=== PATIENT | female | born 1960 | race Caucasian/White ===

== ENCOUNTER 2018-06-15 10:17 | Outpatient (CLI) | payer MEDICARE, MEDICAID, SELFPAY ==
[2018-06-15 13:13] LABS: Anion Gap 9.9 mmol/L (3-11); BUN 16 mg/dL (7-18); CO2 26.1 mmol/L (21.0-32.0); CREATININE 1.07 mg/dL (0.55-1.02); Calcium 9.2 mg/dL (8.5-10.1); Chloride 105 mmol/L (98-107); Cholesterol 177 mg/dL (50-200); Estimated GFR 52.86 (mL/min/1.73m2); Glucose 86 mg/dL (70-100); HDL Cholesterol 58 mg/dL (40-60); LDL CHOLESTEROL 94 mg/dL (<100); Potassium 4.1 mmol/L (3.5-5.1); Sodium 141 mmol/L (136-145); Triglyceride 190 mg/dL (30-150)
== END 2018-06-15 10:37 ==
PROVIDERS: PCP Family Medicine; Visit Provider Family Medicine
DX: E78.5 Hyperlipidemia, unspecified (principal); N28.9 Disorder of kidney and ureter, unspecified
CPT/HCPCS: 36415; 80048; 80061; 83721

== ENCOUNTER 2020-06-05 22:35 | Outpatient (REF) | payer MEDICARE, MEDICAID, SELFPAY ==
[2020-06-05 14:48] LABS: *AMPHETAMINES SCREEN URINE Negative (Negative); *BARBITURATES SCREEN URINE POSITIVE (Negative); *BENZODIAZEPINES SCREEN URINE POSITIVE (Negative); Cannabinoids THC Negative (Negative); Cocaine Screen,Urine Negative (Negative); METHADONE URINE SCREEN Negative (Negative); OPIATES URINE SCREEN POSITIVE (Negative)
[2020-06-05 14:50] LABS: Tricyclic Antidepressants POSITIVE (Negative)
[2020-06-08 10:06] LABS: Codeine Negative ng/mL (Cutoff: 25); Dihydrocodeine 520 ng/mL (Cutoff: 25); Hydrocodone 520 ng/mL (Cutoff: 25); Hydromorphone 258 ng/mL (Cutoff: 25); Morphine Negative ng/mL (Cutoff: 25); Naloxone Negative ng/mL (Cutoff: 25); Norhydrocodone 3090 ng/mL (Cutoff: 25); Noroxycodone Negative ng/mL (Cutoff: 25); Noroxymorphone Negative ng/mL (Cutoff: 25); Opiates Interpretation Positive.
[2020-06-13 10:48] LABS: Alprazolam 329 ng/mL (Cutoff: 10)
[2020-06-13 10:49] LABS: Alpha OH-Alprazolam 575 ng/mL (Cutoff: 10); Alpha-OH Midazolam Negative ng/mL (Cutoff: 10); Chlordiazepoxide Negative ng/mL (Cutoff: 10); Clobazam Negative ng/mL (Cutoff: 10); Clonazepam Negative ng/mL (Cutoff: 10)
[2020-06-13 10:50] LABS: Diazepam Negative ng/mL (Cutoff: 10); Lorazepam Negative ng/mL (Cutoff: 10)
[2020-06-13 10:51] LABS: 2-OH-Ethyl-Flurazepam Negative ng/mL (Cutoff: 10); 7-NH-Clonazepam Negative ng/mL (Cutoff: 10); Flurazepam Negative ng/mL (Cutoff: 10); Prazepam Negative ng/mL (Cutoff: 10); Temazepam 2448 ng/mL (Cutoff: 10)
[2020-06-13 10:52] LABS: 7-NH-Flunitrazepam Negative ng/mL (Cutoff: 10); Alpha-OH-Triazolam Negative ng/mL (Cutoff: 10); N-Desmethylclobazam Negative ng/mL (Cutoff: 10); Triazolam Negative ng/mL (Cutoff: 10)
[2020-06-13 10:53] LABS: Midazolam Negative ng/mL (Cutoff: 10); Zolpidem Carboxylic acid See Comments ng/mL (Cutoff: 10)
[2020-06-13 10:54] LABS: Benzodiazepines Interpretation Positive
== END 2020-06-05 22:36 | disposition home or self-care (01) ==
LOC: LBN 22:35
PROVIDERS: PCP Family Medicine; Visit Provider Emergency Medicine
DX: M54.16 Radiculopathy, lumbar region (principal); Z79.891 Long term (current) use of opiate analgesic
CPT/HCPCS: 80307; 80361; 80362; 80346

== ENCOUNTER 2020-09-27 18:29 | Outpatient (CLI) | payer MEDICARE, MEDICAID, SELFPAY ==
--- NOTE | 2020-09-27 18:30 | DI.RAD_ITS ---
Exam(s) XR FOOT RT COMPLETE EXAM: XR FOOT RT COMPLETE CLINICAL HISTORY: heel pain right TECHNIQUE: COMPARISON: CR RIGHT FOOT COMPLETE from 05/28/2015 FINDINGS: Three views were obtained. There are a moderate mid foot degenerative changes. Mild degenerative ch anges of IP joints noted. There are enthesophytes at the attachments of Achilles tendon and plantar fascia on the calcaneus. No other significant bony or soft tissue abnormality seen. Alignment appea rs grossly within normal limits. IMPRESSION: Degenerative changes as described above. RADIATION DOSE DELIVERED: Total DLP
--- NOTE | 2020-09-27 19:12 | DI.VRAD_ITS ---
PROCEDURE INFORMATION: Exam: XR Right Foot Exam date and time: 09/27/2020 6:42 PM Age: 59 years old Clinical indication: Pain; Heel; Right TECHNIQUE: Imaging protocol: XR Right foot. Views: 3 or more views. COMPARISON: CR RIGHT FOOT COMPLETE 05/28/2015 1:12 PM FINDINGS: Bones/joints: Posterior small calcaneal spurring at the Achilles tendon insertion consistent with Achilles enthesopathy. Small plantar calcaneal spur at the plantar fascial insertion. This measures approximately 5 mm in length. No fracture. No dislocation. Mild midfoot arthritic degenerative changes. Soft tissues: No soft tissue foreign body or soft tissue gas. IMPRESSION: 1. No acute traumatic disruption. 2. Minor calcaneal spurring. 3. No soft tissue gas or foreign body. 4. Mild midfoot intra-tarsal degenerative joint changes. Dictated and Authenticated by: Jonathon Almanza MD. Ordering:ALEJANDRA Birch MD
== END 2020-09-27 18:49 ==
PROVIDERS: Visit Provider Physician Assistant Medical
DX: M79.671 Pain in right foot (principal); M19.071 Primary osteoarthritis, right ankle and foot
CPT/HCPCS: 73630

== ENCOUNTER 2020-10-10 09:38 | Outpatient (REF) | payer MEDICARE, MEDICAID, SELFPAY ==
[2020-10-10 13:36] LABS: HCT 34.6 % (36.0-46.0); HGB 10.5 g/dL (11.2-15.7); MCH 25.7 pg (27.0-33.0); MCHC 30.3 % (32.0-36.0); MCV 84.8 fL (80-95); MPV 9.3 fL (8.0-11.0); Platelet Count 275 10^3/uL (130-400); RBC 4.08 10^6/uL (3.93-5.22); RDW 14.9 % (11.7-14.6); RDW-SD 45.3 fL; WBC 5.55 10^3/uL (4.4-10.8)
[2020-10-10 14:10] LABS: Anion Gap 9.6 mmol/L (3-11); BUN 13 mg/dL (7-18); CO2 24.4 mmol/L (21.0-32.0); CREATININE 1.2 mg/dL (0.55-1.02); Calcium 8.6 mg/dL (8.5-10.1); Calculated LDL 126 mg/dL (<100); Chloride 110 mmol/L (98-107); Cholesterol 198 mg/dL (<200); Estimated GFR 45.98 (mL/min/1.73m2); Glucose 136 mg/dL (74-106); HDL Cholesterol 51 mg/dL (40-60); Potassium 4.4 mmol/L (3.5-5.1); Sodium 144 mmol/L (136-145); Triglyceride 107 mg/dL (<150)
== END 2020-10-10 09:39 | disposition home or self-care (01) ==
LOC: LBN 09:38
PROVIDERS: Visit Provider Physician Assistant
DX: E66.01 Morbid (severe) obesity due to excess calories (principal); R51.9 Headache, unspecified
CPT/HCPCS: 80048; 80061; 85027

== ENCOUNTER 2020-10-17 21:32 | Outpatient (REF) | payer MEDICARE, MEDICAID, SELFPAY ==
[2020-10-17 20:34] LABS: Hemoglobin A1C 5.5 % (<5.7)
== END 2020-10-17 21:33 | disposition home or self-care (01) ==
LOC: NCHCN 21:32
PROVIDERS: Visit Provider Physician Assistant
DX: R73.9 Hyperglycemia, unspecified (principal)
CPT/HCPCS: 83036

== ENCOUNTER → 2020-11-29 13:30 | Outpatient (BNVA) | payer MEDICARE, MEDICAID, SELFPAY | PROVIDERS: PCP Physician Assistant; Visit Provider Surgery | DX: D64.9 Anemia, unspecified (principal); R19.7 Diarrhea, unspecified | CPT/HCPCS: 99203 ==

== ENCOUNTER 2020-12-26 14:46 | Outpatient (REF) | payer MEDICARE, MEDICAID, SELFPAY ==
[2020-12-26 20:35] LABS: FREE T4 0.97 ng/dL (0.76-1.46); TSH 1.15 uIU/mL (0.36-3.74)
[2020-12-26 21:21] LABS: Vitamin B12 344 pg/mL (193-986)
== END 2020-12-26 14:47 | disposition home or self-care (01) ==
LOC: NCHCN 14:46
PROVIDERS: PCP Physician Assistant; Visit Provider Physician Assistant
DX: G60.9 Hereditary and idiopathic neuropathy, unspecified (principal)
CPT/HCPCS: 82607; 84439; 84443

== ENCOUNTER 2021-05-01 20:53 | Emergency (ER) | payer MEDICARE, MEDICAID, SELFPAY ==
[2021-05-01 21:02] VITALS: BP 150/90; PULSE 82; RESP 18; TEMP 36.5; O2SAT 98
[2021-05-01] MEDS: Dexamethasone 4 MG TAB PO (21:37)
[2021-05-01] MEDS: Benzocaine 20% 60 ML CAN (21:37)
--- NOTE | 2021-05-01 21:40 | W.ED.GENAD ---
Discharge Plan Disposition Patient Disposition: HOME Condition: Improving Discharge Details Clinical Impression: Choking due to foreign body Primary Care Provider: Colten Grover ED Provider: Rj Campbell Home Meds and New Rx's Prescriptions: Continued propranolol 80 mg capsule,extended release 24 hr 80 mg PO DAILY Qty: 90 RF: 4 pregabalin [Lyrica] 75 mg capsule 75 mg PO TID RF: 0 [id number]-bkxtgirvgchvf-qfoe 50-325-40 mg capsule 1 cap PO Q6H PRNRF: 0 bisacodyl [Dulcolax (bisacodyl)] 5 mg tablet,delayed release (DR/EC) 5 mg PO ONCE Qty: 4 RF: 0 polyethylene glycol 3350 17 gram powder in packet 255 g PO DAILY Qty: 15 RF: 0 multivitamin [Daily Multi-Vitamin] 1 EACH tablet 1 ea PO DAILY RF: 0 bupropion HCl (smoking deter) 150 MG tablet extended release 12 hr 150 mg PO BID Qty: 60 RF: 2 desvenlafaxine succinate [Pristiq] 100 MG tablet extended release 24 hr 100 mg PO DAILY Qty: 30 RF: 0 Probiotic 1 EACH capsule 1 ea PO AC Qty: 90 RF: 5 quetiapine 300 mg tablet 100 mg PO HS Qty: 30 RF: 0 pantoprazole 20 mg tablet,delayed release (DR/EC) 20 mg PO DAILY Qty: 90 RF: 4 nystatin 100,000 unit/gram powder 1 applic Topical BID PRN (Reason: intertrigo) Qty: 60 RF: 4 lisinopril 10 mg tablet 10 mg PO DAILY RF: 0 Narcan 4 mg/actuation spray,non-aerosol 1 spray intranasal Q2M RF: 0 diazepam [Valium] 10 MG tablet 10 units PO HS RF: 0 Discharge Instructions Instructions: Esophageal Foreign Body (ED) Additional Instructions: Please stay well-hydrated and make sure that you have small bites and chew them well before swallowing. You may use sore throat lozenges as this may help with your discomfort and take your normally prescribed medication. If this occurs again feel free to return to the emergency department or if you have any new or worsening symptoms. Discharge Data Discharge Date/Time-TO BE ENTERED AT DEPARTURE: 05/01/21 21:54 Medical Decision Making Patient presenting to the emergency department via ambulance due to choking on a piece of bread. She states that before EMS arrived she was able to fully swallow it but is now having significant discomfort. Patient states that she has full resolution of symptoms beyond pain. Physical exam is unremarkable for any respiratory distress and patient is not drooling, is phonating well, and exam of oropharynx is negative. Patient states history of previous episodes similar to today's and did have full work-up with barium swallow study performed and no abnormalities noted. Given this I do not feel that radiological imaging is needed at this time but will treat symptomatically with patient continuing to monitor symptoms at home. Used Hurricaine spray to give patient immediate relief which she stated occurred as soon as medication was given and patient given dose of Decadron to help with any further swelling or irritation. Did discuss with patient similarity of Decadron to prednisone but she was okay with 1 dose and patient does not have anaphylactoid type reaction. After discussion of diagnosis and plan of care patient has no further needs, questions, or concerns and states clear understanding to return to the emergency department for any worsening symptoms. HPI General Mode of arrival: EMS. Date/Time Provider Initiated Documentation: 05/01/21 21:15. Limitations to Documentation: no limitations. Information obtained by: patient. History of Present Illness 60 year old F presents to the emergency department with the chief complaint of Sore throat after choking on a piece of bread, described as moderate, with intensity rated at 8. Quality is described as aching and constant, and is localized to the neck. Patient reports no radiation. Patient started experiencing this hour(s) (1) and it has been constant. other things that improve symptom(s), (Finally swallowing food bolus) No exacerbating factors reported . Patient notes no other symptoms.. Patient did receive the following treatments prior to arrival, none Related Data Home Medications Medication Instructions Recorded Confirmed multivitamin [Daily Multi-Vitamin] 1 ea PO DAILY 07/27/12 05/01/21 bupropion HCl (smoking deter) 150 mg PO BID #60 tab-cap 03/03/13 05/01/21 diazepam [Valium] 10 units PO HS 02/03/14 05/01/21 desvenlafaxine succinate [Pristiq] 100 mg PO DAILY #30 tab 05/05/14 05/01/21 Probiotic 1 ea PO AC #90 cap 09/16/16 05/01/21 quetiapine 300 mg tablet 100 mg PO HS #30 tab-cap 11/23/18 05/01/21 propranolol 80 mg capsule,24 80 mg PO DAILY #90 cap 08/16/19 05/01/21 hr,extended release pantoprazole 20 mg tablet,delayed 20 mg PO DAILY #90 tab 11/17/19 05/01/21 release nystatin 100,000 unit/gram topical 1 applic TOPICAL BID PRN #60 gm 04/17/20 05/01/21 powder lisinopril 10 mg tablet 10 mg PO DAILY 11/15/20 11/29/20 naloxone 4 mg/actuation nasal spray 1 spray INTRANASAL Q2M 11/15/20 11/29/20 bisacodyl 5 mg tablet,delayed 5 mg PO ONCE #4 tab 11/29/20 11/29/20 release nvniswgyqd-bkrvplmpryzde-lexvocww 1 cap PO Q6H PRN 11/29/20 05/01/21 50 mg-325 mg-40 mg capsule polyethylene glycol 3350 17 gram 255 g PO DAILY #15 ea 11/29/20 11/29/20 oral powder packet pregabalin 75 mg capsule 75 mg PO TID 11/29/20 11/29/20 Previous Rx's Medication Instructions Recorded propranolol 80 mg capsule,24 80 mg PO DAILY #90 cap 08/16/19 hr,extended release pantoprazole 20 mg tablet,delayed 20 mg PO DAILY #90 tab 11/17/19 release nystatin 100,000 unit/gram topical 1 applic TOPICAL BID PRN #60 gm 04/17/20 powder bisacodyl 5 mg tablet,delayed 5 mg PO ONCE #4 tab 11/29/20 release polyethylene glycol 3350 17 gram 255 g PO DAILY #15 ea 11/29/20 oral powder packet Allergies Allergy/AdvReac Type Severity Reaction Status Date / Time prednisone AdvReac Severe GI upset Verified 11/29/20 13:49 topiramate AdvReac Severe Suicical Verified 11/29/20 13:49 ideation NSAIDS (Non-Steroidal AdvReac Intermediate blood in Verified 11/29/20 13:49 Anti-Inflamma stool aspirin AdvReac Verified 11/29/20 13:49 General Stated Complaint: GenMedical RADHA: 4 Review of Systems Constitutional Constitutional: Denies fever(s) ENT Ears, Nose, Mouth, and Throat: Reports as per HPI, Denies change in voice, Denies dysphagia, Denies lip swelling, Denies mouth pain and Reports odynophagia Cardiovascular Cardiovascular: Denies chest pain, Denies syncope and Denies dyspnea Respiratory Respiratory: Denies cough, Denies dyspnea, Denies stridor and Denies wheezing Gastrointestinal Gastrointestinal: Denies abdominal pain, Denies dysphagia and Reports odynophagia Neurologic Neurologic: Denies syncope Allergic/Immunologic Allergic/Immunologic: Denies lip swelling and Denies wheezing PFS All Active Problems (Updated 05/01/21 @ 21:42 by Rj Campbell NP) Choking due to foreign body (Acute) Anxiety disorder (Acute) Gastrointestinal disorder (Acute) Headache (Acute) Candidal intertrigo (Acute) Morbid obesity (Acute) Heel pain (Acute) Elevated blood sugar (Acute) Anemia (Chronic) Essential hypertension (Acute) Polypharmacy (Acute) Chronic pain syndrome (Chronic 04/08/12) Diverticulitis (Chronic 08/27/17) Dysphagia (Chronic 10/12/08) Lymphedema (Chronic) Peptic ulcer (Chronic) Polyp of colon (Chronic) Substance abuse (Chronic) Tachycardia (Chronic) Left cervical radiculopathy (Chronic) Tubular adenoma of colon (Chronic 04/18/16) Spinal stenosis of lumbar region (Chronic 11/11/16) Panic attack (Chronic) Obesity (Chronic) Migraine (Chronic) cerviogenic CHOI & analgesia rebound Hyperlipidemia (Chronic) Depressive disorder (Chronic) Chronic diarrhea (Chronic 06/12/16) Lumbar radiculopathy, right (Chronic) Intestinal or peritoneal adhesions with obstruction (postoperative) (postinfection) (Chronic 02/03/14) Panic attacks (Chronic) Medical History Borderline personality disorder Chronic back pain Chronic diarrhea (06/12/16) Depressive disorder Essential hypertension History of peptic ulcer Hyperlipidemia Migraine cerviogenic CHOI & analgesia rebound Panic attack Pharyngitis Polypharmacy Spinal stenosis of lumbar region (11/11/16) Surgical History Abdominal hysterectomy (~2000) Bilateral salpingectomy with oophorectomy Cholecystectomy (~12/2008) w/ cholangiogram Colonoscopy - MAC (04/18/09) Family History Mother Essential hypertension Uterine cancer Father Bone cancer Sister Cervical cancer Sister No problems noted. Brother , AGE 51 Depression Brother , AGE 57 No problems noted. Brother Essential hypertension Asthma Brother Alcohol abuse Maternal Grandmother , age 86 Skin cancer Paternal Grandmother Cancer Son No problems noted. Daughter Depression Social History Smoking/Tobacco Use Status: Current-Occasional Tobacco Type: cigarettes Smoking risk assessment performed?: Yes Alcohol Intake: never Drug use: Never Substance use type: does not use Duration: > 90 minutes/day Frequency: daily Elvia/[employer]ist: No preference Special elvia needs: No Do you feel safe in your relationship?: Yes Exam Const General: cooperative, no acute distress and not ill appearing Orientation: alert, awake and oriented x3 HENMT Mouth: moist mucous membranes Neck Neck: normal visual inspection, no lymphadenopathy, trachea midline, supple, no anterior neck swelling, no midline deformity and nontender Lymphatic: no lymphadenopathy noted Resp Effort & Inspection: normal respiratory effort, able to speak in complete sentences, no audible wheezes, not labored, no nasal flaring, no respiratory distress, no stridor and not tachypneic Auscultation: clear to auscultation bilaterally Cardio Jugular venous pressure: no JVD Rate: regular rate Rhythm: regular rhythm Heart Sounds: S1 normal and S2 normal Skin General skin exam: no rashes or lesions noted Neuro General: patient alert, patient awake, patient oriented x3, moves all extremities and no focal motor deficits Sensory Exam: no sensory deficits noted Course Vital Signs Vital signs: Vital Signs Temperature 36.5 C 05/01/21 21:02 Pulse 82 05/01/21 21:02 Respiratory Rate 18 05/01/21 21:02 Blood Pressure 150/90 H 05/01/21 21:02 Pulse Oximetry 98 05/01/21 21:02 Temperature 36.5 C 05/01/21 21:02 Temperature Source Temporal Artery Scan 05/01/21 21:02 Pulse 82 05/01/21 21:02 Respiratory Rate 18 05/01/21 21:02 Respiratory Effort Splinting 05/01/21 21:05 Respiratory Depth Normal 05/01/21 21:05 Respiratory Pattern Normal 05/01/21 21:05 Blood Pressure 150/90 H 05/01/21 21:02 Blood Pressure Position Sitting 05/01/21 21:02 Pulse Oximetry 98 05/01/21 21:02 Oxygen Delivery Method Room Air 05/01/21 21:02 Oxygen Flow Rate 0 05/01/21 21:02 Pain Level 8 05/01/21 21:02
== END 2021-05-01 21:54 | disposition home or self-care (01) ==
PROVIDERS: Emergency Provider Nurse Practitioner Family; PCP Physician Assistant
DX: T17.828A Food in other parts of respiratory tract causing other injury, initial encounter (principal); R07.0 Pain in throat
CPT/HCPCS: 99283; J8540

== ENCOUNTER 2021-05-03 15:37 | Outpatient (REF) | payer MEDICARE, MEDICAID, SELFPAY ==
[2021-05-06 09:56] LABS: COVID-19 RT-PCR UVMMC Result Negative (Negative)
== END 2021-05-03 15:38 | disposition home or self-care (01) ==
LOC: LBN 15:37
PROVIDERS: PCP Physician Assistant; Visit Provider Physician Assistant Medical
DX: Z20.822 Contact with and (suspected) exposure to COVID-19 (principal); J06.9 Acute upper respiratory infection, unspecified
CPT/HCPCS: U0003

== ENCOUNTER 2021-07-09 14:41 | Outpatient (REF) | payer MEDICARE, MEDICAID, SELFPAY ==
[2021-07-09 19:23] LABS: Anion Gap 8.4 mmol/L (3-11); BUN 12 mg/dL (7-18); CO2 25.6 mmol/L (21.0-32.0); CREATININE 1.2 mg/dL (0.55-1.02); Calcium 8.6 mg/dL (8.5-10.1); Chloride 102 mmol/L (98-107); Estimated GFR 45.83 (mL/min/1.73m2); Glucose 89 mg/dL (74-106); Sodium 136 mmol/L (136-145)
== END 2021-07-09 14:42 | disposition home or self-care (01) ==
LOC: NCHCN 14:41
PROVIDERS: PCP Physician Assistant; Visit Provider Physician Assistant
DX: I10 Essential (primary) hypertension (principal)
CPT/HCPCS: 80048

== ENCOUNTER → 2021-08-16 00:32 | Outpatient (CLI) | payer MEDICARE, MEDICAID, SELFPAY ==
--- NOTE | 2021-08-16 | DI.MRI_ITS ---
Exam(s) MR LUMBAR SPINE WO EXAM: MR LUMBAR SPINE WO CLINICAL HISTORY: LOW BACK PAIN, M54.5, PROGRESSIVE PAIN, EPISODES OF BOWEL INCONTINENCE. TECHNIQUE: Multiplanar multisequence MRI of the Lumbar spine was performed. COMPARISON: MR MRI - LUMBAR SPINE WO CONTRAST from 11/11/2016 FINDINGS: Bones: The last intervertebral disc space is designated the L5/S1 level for the numbering purpose of this examination. The vertebral body heights are well maintained. Alignment is satisfactory. Degene rative endplate signal changes are present. Cord: The conus tip ends at the L1 level. It is of normal size and signal intensity. T12-L1: No disc herniations or bulges are present. No central spinal canal or neural foraminal stenos is. L1-2: No disc herniations or bulges are present. No central spinal canal or neural foraminal stenosis . L2-3: No disc herniations or bulges are present. No central spinal canal or neural foraminal stenosis . L3-4: No disc herniations or bulges are present. Degenerative changes are seen in the facets.No signi ficant central spinal canal stenosis is seen. No neural foraminal stenosis is present. L4-5: There is a diffuse disc bulge. There is extension of the disc into the left neural foramen caus ing moderately severe left neural foraminal stenosis. There are hypertrophic changes of the facets an d ligamentum flavum causing moderately severe central spinal canal stenosis. L5-S1: Mild diffuse disc bulge. Minimal narrowing of the central spinal canal. No significant neural foraminal stenosis.There are degenerative changes of the facets. Soft tissues: The visualized SI joints and sacrum are well maintained. The paraspinal soft tissues ar e unremarkable. IMPRESSION: 1. Progression of degenerative change disease at L4-5 which results in moderately severe central spin al canal stenosis and moderately severe left neural foraminal stenosis. 2. Multilevel degenerative changes in the lumbar spine. DATA REPOSITORY:
== END ==
PROVIDERS: PCP Physician Assistant; Visit Provider Physician Assistant
DX: M51.27 Other intervertebral disc displacement, lumbosacral region; M99.53 Intervertebral disc stenosis of neural canal of lumbar region
CPT/HCPCS: 72148

== ENCOUNTER → 2021-09-11 19:03 | Outpatient (CLI) | payer MEDICARE, MEDICAID, SELFPAY ==
--- NOTE | 2021-09-11 | DI.RAD_ITS ---
Exam(s) XR KNEE LT 3V AP,LAT,SIOMARA EXAM: XR KNEE LT 3V AP,LAT,SIOMARA CLINICAL HISTORY: Left Knee Pain Post Fall - M25.562. TECHNIQUE: 2D digital imaging was performed. Three views. COMPARISON: CR LEFT KNEE LIMITED 1 OR 2 VIEWS from 01/29/2012 FINDINGS: BONES: No acute fracture is present. No bony destructive lesion is seen. JOINTS: Mild narrowing medial femoral tibial joint space. The knee is normally aligned. No joint eff usion is seen. SOFT TISSUE: Normal. IMPRESSION: Mild degenerative changes at the medial femoral tibial joint space. No acute abnormality. DATA REPOSITORY: RADIATION DOSE DELIVERED:
== END ==
PROVIDERS: PCP Physician Assistant; Visit Provider Nurse Practitioner Family
DX: M25.562 Pain in left knee (principal); M25.861 Other specified joint disorders, right knee
CPT/HCPCS: 73562

== ENCOUNTER 2021-09-13 12:26 | Emergency (ER) | payer MEDICARE, MEDICAID, SELFPAY ==
[2021-09-13 12:35] VITALS: BP 144/73; PULSE 101; RESP 16; TEMP 36.6; O2SAT 99
--- NOTE | 2021-09-13 13:31 | ED.GENADUL_ITS ---
Discharge Plan Disposition Patient Disposition: HOME Condition: Stable Discharge Details Clinical Impression: Chronic back pain Primary Care Provider: Colten Grover ED Provider: Rocael Rousseau Home Meds and New Rx's Prescriptions: Continued propranolol 80 mg capsule,extended release 24 hr 80 mg PO DAILY Qty: 90 4RF lozfsvagxa-ppukkvdkrunno-mysm 50-325-40 mg capsule 1 cap PO Q6H PRN bisacodyl [Dulcolax (bisacodyl)] 5 mg tablet,delayed release (DR/EC) 5 mg PO ONCE Qty: 4 0RF Rx Instructions: Take as directed for your colonoscopy polyethylene glycol 3350 17 gram powder in packet 255 g PO DAILY Qty: 15 0RF Rx Instructions: Mix 255 gm in 64 oz of gatorade or juice. Drink as directed multivitamin [Daily Multi-Vitamin] 1 EACH tablet 1 ea PO DAILY bupropion HCl (smoking deter) 150 MG tablet extended release 12 hr 150 mg PO BID Qty: 60 desvenlafaxine succinate [Pristiq] 100 MG tablet extended release 24 hr 100 mg PO DAILY Qty: 30 Probiotic 1 EACH capsule 1 ea PO AC Qty: 90 quetiapine 300 mg tablet 100 mg PO HS Qty: 30 Rx Instructions: Prescribed by SHALOM nystatin 100,000 unit/gram powder 1 applic Topical BID PRN (Reason: intertrigo) Qty: 60 4RF lisinopril 10 mg tablet 10 mg PO DAILY naloxone [Narcan] 4 mg/actuation spray,non-aerosol 1 spray intranasal Q2M Rx Instructions: spray 1 dose into ONE nostril; alternate nostrils w each dose until help arrives diazepam [Valium] 10 MG tablet 10 units PO HS omeprazole 40 mg capsule,delayed release(DR/EC) 40 cap PO DAILY alprazolam 0.5 mg tablet 0.5 tab PO PRN Label Comments: TAKE 1 TABLET BY MOUTH ONCE DAILY NEEDED FOR ANXIETY/PANIC Discharge Instructions Instructions: Back Pain (ED) Additional Instructions: You have a cane at home, are already wearing a knee brace, and are already prescribed Valium, gabapentin, and Lidoderm patches. You are unable to take anti-inflammatory medication until me that your providers do not want you also taking hydrocodone. Unfortunately I do not have many other options for therapy. Please begin using your cane. Rest, elevate, cool and/or warm compresses every 2 hours for 20 minutes. Please watch for new or worsening symptoms and return to the ER for any concerns. Lastly, I strongly recommend reaching out to your primary care provider to discuss your ongoing symptoms and potential need for referral to pain management if symptoms are not under control. Medical Decision Making This is a 60-year-old female, past medical history of anxiety, morbid obesity, hypertension, polypharmacy, chronic back pain, migraines, depression, presenting to the ER for acute on chronic back pain. Patient states that she fell over the weekend injuring her left knee, was seen at the urgent care, had a negative x-ray and given a knee brace. She has been favoring her knee, not using her cane, and because of this now has worsening back pain. She denies any injury of her back from the fall. Denies numbness, tingling, weakness, incontinence. Clinically she is anxious but appears well, nontoxic, neurologically intact, no acute distress. Patient tells me that she has a cane at home but is not using it. She tells me she also saw her primary care provider last week for her chronic back pain and had an MRI, awaiting those results. She already is prescribed Valium, has been using Tylenol and Lidoderm patches, cannot take anti-inflammatory medication, and reports that her primary care provider does not want her taking hydrocodone. Given this I have very little additional to offer. We discussed options, she states just talking made her feel better and reassured and she is comfortable discharge in her current condition. She will start using her cane at home and we discussed gentle stretches, cool and/or warm compresses, and talking with her primary care provider regarding her chronic pain and potential referral to the pain clinic. Standard discharge and return precautions were provided. Patient understands, is agreeable to this plan, and has no additional questions or concerns upon discharge. This documentation was generated using [employer] system, please disregard any oddities of phrase or misspellings. Medical Records Medical records reviewed: Yes I reviewed the patient's medical records. HPI General Mode of arrival: ambulatory . Date/Time Provider Initiated Documentation: 09/13/21 12:55 . Limitations to Documentation: no limitations . Information obtained by: patient . History of Present Illness 60 year old F presents to the emergency department with the chief complaint of back/left knee pain, described as severe and similar to prior episodes, with intensity rated at 7. Quality is described as aching, and is localized to the back, left and lower extremity. Patient started experiencing this day(s) (6) and it has been constant. Immobilization improves symptom(s), Movement worsens symptoms . Patient notes no other symptoms.. Patient did receive the following treatments prior to arrival, other (Acetaminophen) Related Data Home Medications Medication Instructions Recorded Confirmed multivitamin (Daily Multi-Vitamin 1 ea PO DAILY 07/27/12 09/13/21 tablet) bupropion HCl (smoking deter) 150 150 mg PO BID #60 tab-caps 03/03/13 09/13/21 mg tablet,12 hr sustained-release(smoking deterrent) diazepam 10 mg tablet (Valium) 10 units PO HS 02/03/14 09/13/21 desvenlafaxine succinate 100 mg 100 mg PO DAILY #30 tabs 05/05/14 05/01/21 tablet,extended release 24 hr (Pristiq) Lactobacillus acidophilus and 1 ea PO AC #90 caps 09/16/16 09/13/21 rhamnosus 15 billion cell capsule (Probiotic) quetiapine 300 mg tablet 100 mg PO HS #30 tab-caps 11/23/18 09/13/21 propranolol 80 mg capsule,24 80 mg PO DAILY migraine 08/16/19 09/13/21 hr,extended release prophylaxis #90 caps nystatin 100,000 unit/gram topical 1 applic topical BID PRN 04/17/20 09/13/21 powder intertrigo #60 grams lisinopril 10 mg tablet 10 mg PO DAILY 11/15/20 09/13/21 naloxone 4 mg/actuation nasal 1 spray intranasal Q2M 11/15/20 09/13/21 spray (Narcan) bisacodyl 5 mg tablet,delayed 5 mg PO ONCE #4 tabs 11/29/20 09/13/21 release (Dulcolax (bisacodyl)) pzmnuirbye-rqoqrtmshvwoz-aculeihq 1 cap PO Q6H PRN 11/29/20 09/13/21 50 mg-325 mg-40 mg capsule polyethylene glycol 3350 17 gram 255 g PO DAILY #15 ea 11/29/20 09/13/21 oral powder packet alprazolam 0.5 mg tablet 0.5 tab PO PRN 09/13/21 omeprazole 40 mg capsule,delayed 40 cap PO DAILY 09/13/21 09/13/21 release Previous Rx's Medication Instructions Recorded propranolol 80 mg capsule,24 80 mg PO DAILY migraine 08/16/19 hr,extended release prophylaxis #90 caps nystatin 100,000 unit/gram topical 1 applic topical BID PRN 04/17/20 powder intertrigo #60 grams bisacodyl 5 mg tablet,delayed 5 mg PO ONCE #4 tabs 11/29/20 release (Dulcolax (bisacodyl)) polyethylene glycol 3350 17 gram 255 g PO DAILY #15 ea 11/29/20 oral powder packet Allergies Allergy/AdvReac Type Severity Reaction Status Date / Time pregabalin [From Lyrica] Allergy Unverified 09/13/21 12:43 prednisone AdvReac Severe GI upset Verified 09/13/21 12:42 topiramate AdvReac Severe Suicical Verified 09/13/21 12:42 ideation NSAIDS (Non-Steroidal AdvReac Intermediate blood in Verified 09/13/21 12:42 Anti-Inflamma stool aspirin AdvReac Verified 09/13/21 12:42 General Stated Complaint: Nk/Back Pain RADHA: 4 Review of Systems Constitutional Constitutional: Denies fever(s) and Denies weakness ENT Ears, Nose, Mouth, and Throat: Denies neck pain Cardiovascular Cardiovascular: Denies chest pain and Denies dyspnea Respiratory Respiratory: Denies dyspnea Gastrointestinal Gastrointestinal: Denies abdominal pain, Denies fecal incontinence, Denies nausea and Denies vomiting Genitourinary Genitourinary: Denies abnormal vaginal bleeding, Denies hematuria, Denies dysuria and Denies vaginal discharge Musculoskeletal Musculoskeletal: Reports back pain, Denies neck pain, Denies numbness, Reports stiffness and Denies tingling Integumentary/Breasts Skin/Breast: Denies rash Neurologic Neurologic: Denies numbness, Denies tingling and Denies weakness PFSH All Active Problems Anxiety disorder (Acute) Gastrointestinal disorder (Acute) Headache (Acute) Candidal intertrigo (Acute) Morbid obesity (Acute) Heel pain (Acute) Elevated blood sugar (Acute) Anemia (Chronic) Essential hypertension (Acute) Polypharmacy (Acute) Chronic back pain (Acute) Chronic pain syndrome (Chronic 04/08/12) Diverticulitis (Chronic 08/27/17) Dysphagia (Chronic 10/12/08) Lymphedema (Chronic) Peptic ulcer (Chronic) Polyp of colon (Chronic) Substance abuse (Chronic) Tachycardia (Chronic) Left cervical radiculopathy (Chronic) Tubular adenoma of colon (Chronic 04/18/16) Spinal stenosis of lumbar region (Chronic 11/11/16) Panic attack (Chronic) Obesity (Chronic) Migraine (Chronic) cerviogenic CHOI & analgesia rebound Hyperlipidemia (Chronic) Depressive disorder (Chronic) Chronic diarrhea (Chronic 06/12/16) Lumbar radiculopathy, right (Chronic) Intestinal or peritoneal adhesions with obstruction (postoperative) (postinfection) (Chronic 02/03/14) Panic attacks (Chronic) Medical History Borderline personality disorder History of peptic ulcer Hyperlipidemia Pharyngitis Surgical History Abdominal hysterectomy (~2000) Bilateral salpingectomy with oophorectomy Cholecystectomy (~12/2008) w/ cholangiogram Colonoscopy - MAC (04/18/09) Family History Mother Essential hypertension Uterine cancer Father Bone cancer Sister Cervical cancer Sister No problems noted. Brother , AGE 51 Depression Brother , AGE 57 No problems noted. Brother Essential hypertension Asthma Brother Alcohol abuse Maternal Grandmother , age 86 Skin cancer Paternal Grandmother Cancer Son No problems noted. Daughter Depression Social History Smoking/Tobacco Use Status: Current-Occasional Tobacco Type: cigarettes Smoking risk assessment performed?: Yes Alcohol Intake: never Drug use: Never Substance use type: does not use Duration: > 90 minutes/day Frequency: daily Elvia/Church: No preference Special elvia needs: No Do you feel safe in your relationship?: Yes Exam Const General: cooperative, comfortable, no acute distress and anxious (Anxious, tearful) Orientation: alert and awake [facility] Head: normal to inspection, normocephalic and atraumatic Eyes General: appearance normal, both eyes and all related structures Conjunctivae: conjunctivae normal Neck Neck: normal visual inspection, full ROM, trachea midline and supple Resp Effort & Inspection: normal respiratory effort and able to speak in complete sentences Auscultation: clear to auscultation bilaterally Cardio Rate: regular rate Rhythm: regular rhythm GI Inspection: obesity Palpation: soft, not firm, no guarding, no pulsatile masses and nontender Auscultation: normal bowel sounds Back/Spine/Pelvis Back: no CVA tenderness and back tenderness (Diffuse, mild, lumbar, no bony point tenderness) Skin General skin exam: no rashes or lesions noted Neuro General: patient alert, patient awake, patient oriented x3, moves all extremities and no focal motor deficits Cognition: normal cognition Speech: speech normal Gait: antalgic Sensory Exam: no sensory deficits noted Extrem General: normal to inspection, full ROM and capillary refill normal Other: Left knee normal inspection, diffuse mild discomfort. There is no swelling, erythema, ecchymosis, or instability. Normal pedal pulse with very refill. Neuro, vascular, tendon intact Psych Appearance: grossly normal Mental Status: mental status grossly normal Course Vital Signs Vital signs: Vital Signs Temperature 36.6 C 09/13/21 12:35 Pulse 101 H 09/13/21 12:35 Respiratory Rate 16 09/13/21 12:35 Blood Pressure 144/73 H 09/13/21 12:35 Pulse Oximetry 99 09/13/21 12:35 Temperature 36.6 C 09/13/21 12:35 Temperature Source Temporal Artery Scan 09/13/21 12:35 Pulse 101 H 09/13/21 12:35 Respiratory Rate 16 09/13/21 12:35 Respiratory Effort 09/13/21 12:35 Blood Pressure 144/73 H 09/13/21 12:35 Blood Pressure Position Sitting 09/13/21 12:35 Pulse Oximetry 99 09/13/21 12:35 Oxygen Delivery Method Room Air 09/13/21 12:35 Oxygen Flow Rate 0 09/13/21 12:35 Pain Level 10 09/13/21 12:35
[2021-09-13 14:02] VITALS: BP 137/71; PULSE 93; TEMP 37.1; O2SAT 97
== END 2021-09-13 14:26 | disposition home or self-care (01) ==
PROVIDERS: Emergency Provider Physician Assistant; PCP Physician Assistant
DX: M54.9 Dorsalgia, unspecified (principal); G89.29 Other chronic pain
CPT/HCPCS: 99282

== ENCOUNTER 2021-10-07 15:22 | Outpatient (REF) | payer MEDICARE, MEDICAID, SELFPAY ==
[2021-10-07 19:16] LABS: HCT 24.4 % (36.0-46.0); MCH 19.9 pg (27.0-33.0); MCHC 27.9 % (32.0-36.0); MCV 72 fL (80-95); MPV 8.5 fL (8.0-11.0); Platelet Count 366 10^3/uL (130-400); RBC 3.41 10^6/uL (3.93-5.22); RDW 18.3 % (11.7-14.6); RDW-SD 47.5 fL; Reticulocyte 2.1 % (0.5-2.4); WBC 7.05 10^3/uL (4.4-10.8)
[2021-10-07 19:40] LABS: Ferritin 7 ng/mL (8-252)
[2021-10-07 19:43] LABS: HGB 6.8 g/dL (11.2-15.7)
== END 2021-10-07 15:23 | disposition home or self-care (01) ==
LOC: NCHCN 15:22
PROVIDERS: PCP Physician Assistant; Visit Provider Physician Assistant
DX: D64.9 Anemia, unspecified (principal)
CPT/HCPCS: 85027; 82728; 85045

== ENCOUNTER 2021-10-15 13:51 | Emergency (ER) | payer MEDICARE, MEDICAID, SELFPAY ==
[2021-10-15] VITALS (18 sets, daily range): BP systolic 127–153; BP diastolic 72–87; PULSE 70–91; RESP 14–26; TEMP 36.6–37.1; O2SAT 98–100
--- NOTE | 2021-10-15 14:15 | ED.GENADUL_ITS ---
Discharge Plan Disposition Patient Disposition: AGAINST MEDICAL ADVICE Condition: Fair Discharge Details Clinical Impression: Acute anemia, Bright red rectal bleeding Primary Care Provider: Colten Grover ED Provider: Kamryn High Home Meds and New Rx's Prescriptions: Continued propranolol 80 mg capsule,extended release 24 hr 80 mg PO DAILY Qty: 90 4RF [id number]-[id number]-vaos 50-325-40 mg capsule 1 cap PO Q6H PRN bisacodyl [Dulcolax (bisacodyl)] 5 mg tablet,delayed release (DR/EC) 5 mg PO ONCE Qty: 4 0RF Rx Instructions: Take as directed for your colonoscopy multivitamin [Daily Multi-Vitamin] 1 EACH tablet 1 ea PO DAILY bupropion HCl (smoking deter) 150 MG tablet extended release 12 hr 150 mg PO DAILY AM Qty: 60 desvenlafaxine succinate [Pristiq] 100 MG tablet extended release 24 hr 100 mg PO DAILY Qty: 30 Probiotic 1 EACH capsule 1 ea PO AC Qty: 90 nystatin 100,000 unit/gram powder 1 applic Topical BID PRN (Reason: intertrigo) Qty: 60 4RF lisinopril 10 mg tablet 10 mg PO DAILY naloxone [Narcan] 4 mg/actuation spray,non-aerosol 1 spray intranasal Q2M PRN Rx Instructions: spray 1 dose into ONE nostril; alternate nostrils w each dose until help ar yolette diazepam [Valium] 10 MG tablet 10 units PO HS omeprazole 40 mg capsule,delayed release(DR/EC) 40 cap PO DAILY alprazolam 0.5 mg tablet 0.5 tab PO DAILY PRN Label Comments: TAKE 1 TABLET BY MOUTH ONCE DAILY NEEDED FOR ANXIETY/PANIC polyethylene glycol 3350 17 gram powder in packet 17 g PO DAILY PRN Rx Instructions: Mix 255 gm in 64 oz of gatorade or juice. Drink as directed Discharge Instructions Instructions: Anemia (ED) Additional Instructions: You are leaving the hospital AGAINST MEDICAL ADVICE. Your hemoglobin is significantly low and you are having bright red rectal bleeding. It is recommended you stay in the hospital for continued observation and monitoring. Call your primary care doctor's office tomorrow morning to schedule a follow-up appointment for reevaluation in the next 1 to 2 days. Return immediately to the emergency department if you develop any worsening or new concerning symptoms. Discharge Data Discharge Date/Time-TO BE ENTERED AT DEPARTURE: 10/15/21 18:36 Discharge Physician: Kamryn High Medical Decision Making 1400 -- 60-year-old female with history of anxiety, depression, GERD, Crohn's disease, obesity, hysterectomy, cholecystectomy presents after sent by PCP office for hemoglobin of 6.4 on outpatient labs today. She was started on iron recently per her PCP office. She admits to intermittent abdominal pain that occurs with bowel movements for the past several months but otherwise denies any known rectal bleeding or vomiting. Vitals within normal limits. Patient appears comfortable and nontoxic. Rectal exam noted nonthrombosed hemorrhoids but no obvious masses or fissures or thrombosed external hemorrhoids. Guaiac noted brown stool which was positive for blood. Differential diagnosis includes diverticulitis, iron deficiency anemia, colitis, gastroenteritis, complications of Crohn's disease, hemorrhoids. We will place an IV, bolus IV fluids, screening labs, CT abdomen pelvis with oral contrast only. Patient states she is agreeable with labs, imaging and blood transfusion but does not want to stay in the hospital. This patient was evaluated during a time of global shortage of iodinated contrast media. Based on guidance from the [employer], best practices, and local institutional approaches, an alternative path for evaluating and managing the patient may have been employed in order to provide optimal care during this shortage. The current situation has been discussed with the patient. 1520 --labs reviewed. Hemoglobin 6.1, hematocrit 23.4. White blood cell count 5.68. Normal electrolytes. 1 unit of PRBC blood transfusion ordered for here. 164 --nursing reported that patient is having bright red rectal bleeding in commode. 0 --CT reviewed and notes IMPRESSION: 1. Normal appendix. 2. At least 3 well delineated structures in the stomach show hyperdense periphery. The 1 in the proximal stomach measures 3 cm.. Mid stomach lesion measures 19 mm; the distal stomach lesion measures 3.6 cm They could represent? atypical gastric lesion such as mass; ingested foreign bodies; or atypical reaction between the stomach and oral contrast. Clinical correlation is recommended. 3 Mild bowel wall thickening in the distal rectosigmoid and rectum.? Series 2, image [id number] may represent mild colitis or proctitis Imaging discussed with patient and that I recommend admission for anemia in the setting of active rectal bleeding and that she may need additional blood transfusions in addition to endoscopy. Patient is refusing to stay. Imaging reviewed and case discussed with Dr. Espinoza -- pt denied any ingestion of foreign bodies. Dr. Espinoza came to the ED to examine patient with anoscope at bedside. Patient refused any additional evaluation with Dr. Espinoza and stated she needed to leave to take care of her mom and dogs at home. Despite our efforts, the patient has decided to leave against medical advice. She has a normal mental status and full decisional capacity. The patient understands her condition and the risks of leaving AMA, including BUT NOT LIMITED TO permanent disability, , etc., and has had an opportunity to ask questions about her medical condition. The patient has been informed that she may return for care at any time, and has been referred to her local medical physician for follow up MIKALA. She signed AMA form. Medical Records Medical records reviewed: Yes I reviewed the patient's medical records. Imaging Data Radiologic Study: Radiologist's impression: CT Abdomen And Pelvis Without Contrast Exam date and time: 10/15/2021 5:14 PM Age: 60 years old Clinical indication: Other: Diffuse intermittent abd pain, trace gi bleed, anemia, R/O diverticulitis, colitis TECHNIQUE: Imaging protocol: Computed tomography of the abdomen and pelvis without contrast. Radiation optimization: All CT scans at this facility use at least one of these dose optimization techniques: automated exposure control; mA and/or kV adjustment per patient size (includes targeted exams where dose is matched to clinical indication); or iterative reconstruction. Other contrast: Oral, gastroview 30 , 900; COMPARISON: CT ABD PELVIS WITH CONTRAST 08/18/2017 10:43 AM FINDINGS: Liver: Normal. No mass. Gallbladder and bile ducts: Cholecystectomy Pancreas: Normal. No ductal dilation. Spleen: Normal. No splenomegaly. Adrenal glands: Normal. No mass. Kidneys and ureters: There is no evidence of renal or ureteral calcifications. Stomach and bowel:? At least 3 well delineated structures in the stomach show hyperdense periphery. The 1 in the proximal stomach measures 3 cm.. Mid stomach lesion measures 19 mm; the distal stomach lesion measures 3.6 cm They could represent? atypical gastric lesion such as mass; ingested foreign bodies; or atypical reaction between the stomach and oral contrast. Clinical correlation is recommended. Diverticulosis of the rectosigmoid.? No diverticulitis. Mild bowel wall thickening in the distal rectosigmoid and rectum.? Series 2, image 75-81 may represent mild colitis or proctitis Appendix: Normal appendix.? Intraperitoneal space: Unremarkable. No free air. No significant fluid collection. Vasculature: Unremarkable. No abdominal aortic aneurysm. Lymph nodes: Unremarkable. No enlarged lymph nodes. Urinary bladder: Unremarkable as visualized. Reproductive: Surgical resection of the uterus Bones/joints: Unremarkable. No acute fracture. Soft tissues: Unremarkable. IMPRESSION: 1. Normal appendix. 2. At least 3 well delineated structures in the stomach show hyperdense periphery. The 1 in the proximal stomach measures 3 cm.. Mid stomach lesion measures 19 mm; the distal stomach lesion measures 3.6 cm They could represent? atypical gastric lesion such as mass; ingested foreign bodies; or atypical reaction between the stomach and oral contrast. Clinical correlation is recommended. 3 Mild bowel wall thickening in the distal rectosigmoid and rectum.? Series 2, image 75-81 may represent mild colitis or proctitis Lab Data Lab results reviewed: Yes I reviewed the patient's lab results. Labs: Laboratory Tests Range/Units 10/15/21 10/15/21 10/15/21 13:40 14:45 14:45 WBC (4.4-10.8) 10^3/uL 5.68 RBC (3.93-5.22) 10^6/uL 3.18 L Hgb (11.2-15.7) g/dL 6.1 L* Hct (36.0-46.0) % 23.4 L MCV (80-95) fL 74 L MCH (27.0-33.0) pg 19.2 L MCHC (32.0-36.0) % 26.1 L RDW (11.7-14.6) % 18.9 H Plt Count (130-400) 10^3/uL 272 MPV (8.0-11.0) fL 8.0 Immature Gran % 0.4 Neutrophils % 65.6 Lymphocytes % 24.5 Monocytes % 5.8 Eosinophils % 3.0 Basophils % 0.7 Nucleated RBC % (0.0-0.3) % 0.4 H Absolute Neutrophils (1.2-6.7) 10^3/uL 3.73 Absolute Lymphocytes (1.2-3.4) 10^3/uL 1.39 Absolute Monocytes (0.1-0.8) 10^3/uL 0.33 Absolute Eosinophils (0.0-0.7) 10^3/uL 0.17 Absolute Basophils (0.0-0.2) 10^3/uL 0.04 RBC Morphology See Below Polychromasia Present Hypochromasia 2+ Poikilocytosis 2+ Basophilic Stippling 1+ Anisocytosis 2+ Microcytosis 2+ Sodium (136-145) mmol/L 138 Potassium (3.5-5.1) mmol/L 3.8 Chloride (98-107) mmol/L 105 Carbon Dioxide (21.0-32.0) mmol/L 26.7 Anion Gap (3-11) mmol/L 6.3 BUN (7-18) mg/dL 11 Creatinine (0.55-1.02) mg/dL 1.1 H Estimated GFR/1.73 m2 (mL/min/1.73m2) 50.67 Glucose (74-106) mg/dL 96 Calcium (8.5-10.1) mg/dL 8.2 L Total Bilirubin (0.2-1.0) mg/dL 0.2 AST (15-37) U/L 11 L ALT (14-59) U/L 12 L Alkaline Phosphatase (46-116) U/L 210 H Total Protein (6.4-8.2) g/dL 6.5 Albumin (3.4-5.0) g/dL 2.8 L Lipase (73-393) U/L Patient ABO/Rh O Negative Antibody Screen NEGATIVE Crossmatch See Detail Range/Units 10/15/21 14:45 WBC (4.4-10.8) 10^3/uL RBC (3.93-5.22) 10^6/uL Hgb (11.2-15.7) g/dL Hct (36.0-46.0) % MCV (80-95) fL MCH (27.0-33.0) pg MCHC (32.0-36.0) % RDW (11.7-14.6) % Plt Count (130-400) 10^3/uL MPV (8.0-11.0) fL Immature Gran % Neutrophils % Lymphocytes % Monocytes % Eosinophils % Basophils % Nucleated RBC % (0.0-0.3) % Absolute Neutrophils (1.2-6.7) 10^3/uL Absolute Lymphocytes (1.2-3.4) 10^3/uL Absolute Monocytes (0.1-0.8) 10^3/uL Absolute Eosinophils (0.0-0.7) 10^3/uL Absolute Basophils (0.0-0.2) 10^3/uL RBC Morphology Polychromasia Hypochromasia Poikilocytosis Basophilic Stippling Anisocytosis Microcytosis Sodium (136-145) mmol/L Potassium (3.5-5.1) mmol/L Chloride (98-107) mmol/L Carbon Dioxide (21.0-32.0) mmol/L Anion Gap (3-11) mmol/L BUN (7-18) mg/dL Creatinine (0.55-1.02) mg/dL Estimated GFR/1.73 m2 (mL/min/1.73m2) Glucose (74-106) mg/dL Calcium (8.5-10.1) mg/dL Total Bilirubin (0.2-1.0) mg/dL AST (15-37) U/L ALT (14-59) U/L Alkaline Phosphatase (46-116) U/L Total Protein (6.4-8.2) g/dL Albumin (3.4-5.0) g/dL Lipase (73-393) U/L 110 Patient ABO/Rh Antibody Screen Crossmatch HPI General Mode of arrival: ambulatory . Date/Time Provider Initiated Documentation: 10/15/21 13:52 . Limitations to Documentation: no limitations . Information obtained by: patient . HPI Narrative: Patient is a 60-year-old female with a history of anxiety, depression, GERD, Skating Carhop hn's disease, hyperlipidemia, obesity, hysterectomy, cholecystectomy who presents after sent by PCP office for anemia with a hemoglobin of 6.4 today. Patient admits to fatigue recently. She also admits to abdominal pain with bowel movements that has occurred for the past several months. She states her bowel movements have been formed and brown and denies any known bright red rectal bleeding or black-colored stool. She states she was advised to start taking iron per her PCP office recently. She admits to occasional nausea but denies any known fever, vomiting, urinary symptoms or significant rectal pain. Related Data Home Medications Medication Instructions Recorded Confirmed multivitamin (Daily Multi-Vitamin 1 ea PO DAILY 03/26/13 06/14/22 tablet) bupropion HCl (smoking deter) 150 150 mg PO DAILY AM #60 tab-caps 03/03/13 10/15/21 mg tablet,12 hr sustained-release(smoking deterrent) diazepam 10 mg tablet (Valium) 10 units PO HS 02/03/14 10/15/21 desvenlafaxine succinate 100 mg 100 mg PO DAILY #30 tabs 05/05/14 10/15/21 tablet,extended release 24 hr (Pristiq) Lactobacillus acidophilus and 1 ea PO AC #90 caps 09/16/16 10/15/21 rhamnosus 15 billion cell capsule (Probiotic) propranolol 80 mg capsule,24 80 mg PO DAILY migraine 08/16/19 10/15/21 hr,extended release prophylaxis #90 caps nystatin 100,000 unit/gram topical 1 applic topical BID PRN 04/17/20 10/15/21 powder intertrigo #60 grams lisinopril 10 mg tablet 10 mg PO DAILY 11/15/20 10/15/21 naloxone 4 mg/actuation nasal 1 spray intranasal Q2M PRN 11/15/20 10/15/21 spray (Narcan) bisacodyl 5 mg tablet,delayed 5 mg PO ONCE #4 tabs 11/29/20 10/15/21 release (Dulcolax (bisacodyl)) [id number]-[id number] 1 cap PO Q6H PRN 11/29/20 10/15/21 50 mg-325 mg-40 mg capsule alprazolam 0.5 mg tablet 0.5 tab PO DAILY PRN 09/13/21 10/15/21 omeprazole 40 mg capsule,delayed 40 cap PO DAILY 09/13/21 10/15/21 release polyethylene glycol 3350 17 gram 17 g PO DAILY PRN 10/15/21 10/15/21 oral powder packet Previous Rx's Medication Instructions Recorded propranolol 80 mg capsule,24 80 mg PO DAILY migraine 08/16/19 hr,extended release prophylaxis #90 caps nystatin 100,000 unit/gram topical 1 applic topical BID PRN 04/17/20 powder intertrigo #60 grams bisacodyl 5 mg tablet,delayed 5 mg PO ONCE #4 tabs 11/29/20 release (Dulcolax (bisacodyl)) Allergies Allergy/AdvReac Type Severity Reaction Status Date / Time pregabalin [From Lyrica] Allergy Unverified 10/15/21 14:02 prednisone AdvReac Severe GI upset Verified 10/15/21 14:02 topiramate AdvReac Severe Suicical Verified 10/15/21 14:02 ideation NSAIDS (Non-Steroidal AdvReac Intermediate blood in Verified 10/15/21 14:02 Anti-Inflamma stool aspirin AdvReac Verified 10/15/21 14:02 General Stated Complaint: GI Bleed RADHA: 3 Review of Systems All systems reviewed & are unremarkable except as noted in HPI and below Constitutional Constitutional: Denies chills, Denies excessive sweating, Denies fatigue, Denies fever(s), Denies weakness and Denies weight loss Eyes Eyes: Reports system reviewed and no additional complaints, except as documented and Denies blurry vision ENT Ears, Nose, Mouth, and Throat: Denies vertigo, Denies dizziness, Denies otalgia, Denies nasal congestion, Denies sore throat and Denies throat swelling Cardiovascular Cardiovascular: Denies chest pain, Denies syncope, Denies rapid heart rate and Denies dyspnea Respiratory Respiratory: Denies chest congestion, Denies cough, Denies pain on inspiration and Denies dyspnea Gastrointestinal Gastrointestinal: Reports abdominal pain, Denies diarrhea and Denies vomiting Genitourinary Genitourinary: Denies hematuria, Denies dysuria and Denies flank pain Musculoskeletal Musculoskeletal: Denies back pain and Denies joint swelling Integumentary/Breasts Skin/Breast: Denies lesions and Denies rash Neurologic Neurologic: Denies behavioral changes, Denies confusion, Denies vertigo, Denies dizziness, Denies syncope, Denies localized weakness and Denies weakness Psychiatric Psychiatric: Denies behavioral changes, Denies confusion and Denies depression Endocrine Endocrine: Denies excessive sweating and Denies fatigue Hematologic/Lymphatic Hematologic/Lymphatic: Denies easy bruising and Denies lymphadenopathy Allergic/Immunologic Allergic/Immunologic: Denies throat swelling PFSH All Active Problems (Updated 10/15/21 @ 18:30 by Kamryn High DO) Acute anemia (Acute) Bright red rectal bleeding (Acute) Anxiety disorder (Acute) Gastrointestinal disorder (Acute) Headache (Acute) Candidal intertrigo (Acute) Morbid obesity (Acute) Heel pain (Acute) Elevated blood sugar (Acute) Anemia (Chronic) Essential hypertension (Acute) Polypharmacy (Acute) Chronic back pain (Acute) Chronic pain syndrome (Chronic 04/08/12) Diverticulitis (Chronic 08/27/17) Dysphagia (Chronic 10/12/08) Lymphedema (Chronic) Peptic ulcer (Chronic) Polyp of colon (Chronic) Substance abuse (Chronic) Tachycardia (Chronic) Left cervical radiculopathy (Chronic) Tubular adenoma of colon (Chronic 04/18/16) Spinal stenosis of lumbar region (Chronic 11/11/16) Panic attack (Chronic) Obesity (Chronic) Migraine (Chronic) cerviogenic CHOI & analgesia rebound Hyperlipidemia (Chronic) Depressive disorder (Chronic) Chronic diarrhea (Chronic 06/12/16) Lumbar radiculopathy, right (Chronic) Intestinal or peritoneal adhesions with obstruction (postoperative) (postinfection) (Chronic 02/03/14) Panic attacks (Chronic) Medical History Borderline personality disorder History of peptic ulcer Hyperlipidemia Pharyngitis Surgical History Abdominal hysterectomy (~2000) Bilateral salpingectomy with oophorectomy Cholecystectomy (~12/2008) w/ cholangiogram Colonoscopy - MAC (04/18/09) Family History Mother Essential hypertension Uterine cancer Father Bone cancer Sister Cervical cancer Sister No problems noted. Brother , AGE 51 Depression Brother , AGE 57 No problems noted. Brother Essential hypertension Asthma Brother Alcohol abuse Maternal Grandmother , age 86 Skin cancer Paternal Grandmother Cancer Son No problems noted. Daughter Depression Social History Smoking/Tobacco Use Status: Current every day Tobacco Type: cigarettes Smoking risk assessment performed?: Yes Alcohol Intake: never Drug use: Never Substance use type: does not use Duration: > 90 minutes/day Frequency: daily Elvia/Scientology: No preference Special elvia needs: No Do you feel safe at home: Yes Do you feel safe in your relationship?: Yes Exam Const General: cooperative and healthy appearing Orientation: alert and awake HENMT Head: normal to inspection Ears: hearing grossly normal bilaterally, external ears normal and TM's normal bilaterally General nose exam: external nose normal Face and sinus: normal facial exam Mouth: oral mucosae normal Teeth and gingiva: dentition normal Throat: posterior oropharynx normal Eyes General: appearance normal, both eyes and all related structures Eyelids: eyelids normal Pupils: PERRL EOM: EOM intact bilaterally Neck Neck: normal visual inspection Lymphatic: no lymphadenopathy noted Chest Chest: normal inspection of the chest Resp Effort & Inspection: normal respiratory effort and able to speak in complete sentences Auscultation: clear to auscultation bilaterally Cardio Rate: regular rate Rhythm: regular rhythm GI Inspection: normal to inspection and obesity Palpation: soft, not firm, no guarding, no hepatosplenomegaly, no masses and nontender Auscultation: normal bowel sounds Rectal Exam - female: hemorrhoids (nonthrombosed) Back/Spine/Pelvis Back: no CVA tenderness Skin General skin exam: no rashes or lesions noted Neuro General: patient alert and patient awake Cognition: normal cognition Speech: speech normal Gait: normal gait Motor: muscle tone normal throughout Sensory Exam: no sensory deficits noted Extrem General: normal to inspection, full ROM and capillary refill normal Psych Appearance: grossly normal Mental Status: mental status grossly normal Speech and Movement: speech and movement normal Affect: normal affect Thought Process: normal Course Vital Signs Vital signs: Vital Signs Temperature 98.8 F 10/15/21 13:56 Pulse 91 H 10/15/21 13:56 Respiratory Rate 16 10/15/21 13:56 Blood Pressure 153/83 H 10/15/21 13:56 Pulse Oximetry 99 10/15/21 13:56 Temperature 98.8 F 10/15/21 13:56 Temperature Source Temporal Artery Scan 10/15/21 13:56 Pulse 91 H 10/15/21 13:56 Respiratory Rate 16 10/15/21 13:56 Respiratory Effort Non-Labored 10/15/21 14:01 Blood Pressure 153/83 H 10/15/21 13:56 Blood Pressure Position Sitting 10/15/21 13:56 Pulse Oximetry 99 10/15/21 13:56 Oxygen Delivery Method Room Air 10/15/21 13:56 Oxygen Flow Rate 0 10/15/21 13:56 Pain Level 7 10/15/21 13:56
--- NOTE | 2021-10-15 14:45 | DI.CT_ITS ---
Exam(s) CT ABDOMEN PELVIS WO EXAM: CT ABDOMEN PELVIS WO CLINICAL HISTORY: diffuse intermittent abd pain, trace gi bleed. TECHNIQUE: Imaging Protocol: Axial computed tomography images with coronal and sagittal reformatted images were created and reviewed CONTRAST MATERIAL: Intravenous: none Oral: Yes. Oral contrast was administered for bowel opacification. COMPARISON: CT ABD PELVIS WITH CONTRAST from 08/18/2017 FINDINGS: VISUALIZED LUNG BASES: No nodules nor pleural effusions evident. ABDOMEN: There is no ascites. There is anatomic variant of vascular anatomy here. 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 In addition to the right para-aortic IVC there is also a left-sided IVC which drains into the pre aortic left renal vein. Le ft IVC drains the left femoral and iliac veins. The left common iliac vein does not cross behind the aorta to join the right common iliac vein (which is usually the case where it then forms a right tami ed IVC). There are 4 similar appearing peripherally hyperdense structures in the stomach. The largest of thes e is in the proximal stomach near the fundus and measures 3 cm. There is a possibly that these may j ust be related to atypical coating of the stomach by the oral contrast but cannot exclude the possibl y that these represent masses. Endoscopy is recommended. LIVER: There are no obvious focal hepatic lesions evident of this noninfused study. GALLBLADDER/BILIARY: Gallbladder surgically absent. CBD is not dilated. PANCREAS: No evidence of pancreatic mass nor dilatation of the pancreatic duct. SPLEEN: Spleen is not enlarged. No obvious intrasplenic lesions. ADRENALS: There are no significant adrenal masses. KIDNEYS:No cysts evident. No solid renal masses. No calculi nor hydronephrosis. . ABDOMINAL AORTA: Abdominal aorta is not enlarged. LYMPH NODES: There is no retroperitoneal nor paraaortic adenopathy. ABDOMINAL WALL: No evidence of significant anterior abdominal wall nor inguinal hernia. GI: There is no evidence of bowel obstruction, free air, nor abscess. PELVIS: LYMPH NODES: There is no intrapelvic nor inguinal adenopathy. GI: No evidence of appendicitis.No evidence of sigmoid diverticulitis. URINARY BLADDER: No calculi nor obvious masses evident REPRODUCTIVE: Uterus is surgically absent. There are no abnormal adnexal masses. No free fluid in t he pelvis. OSSEOUS: There is a dense sclerotic bone lesion in the right side of the sacrum which is most probabl y benign given that it was present on the 2018 study and is only minimally increased in size from shante t time. There are no new additional sclerotic bone lesions no lytic lesions seen in the visualized o sseous structures. Also no fractures. IMPRESSION: 1. No evidence of acute appendicitis. 2. Four well delineated peripherally hyperdense structures in the stomach, with the largest being loc ated proximally near the fundus and measuring approximately 3 cm. Although this may just represent a typical dispersion of the oral contrast in the stomach, there is also possibly that these may represe nt multiple masses or outlined ingested foreign bodies. Recommend endoscopy. 3. Previous cholecystectomy and hysterectomy. No evidence of bowel obstruction 4. No evidence of acute diverticulitis RADIATION DOSE DELIVERED: 1,603.51mGy.cm Total DLP DATA REPOSITORY: All CT scans at this facility are submitted to the National Radiology Data Registry (NRDR) Dose Index Registry (DIR) with the [employer] ([employer]). RADIATION OPTIMIZATION: All CT scans at this facility use at least one of these dose optimization te chniques: automated exposure control; mA and/or kV adjustment per patient size (includes targeted exa ms where dose is matched to clinical indication); or iterative reconstruction.
[2021-10-15 14:50] LABS: Abs Immature Grans 0.02 10^3/uL (0.0-0.06); Absolute Basophil Count 0.04 10^3/uL (0.0-0.2); Absolute Eosinophil Count 0.17 10^3/uL (0.0-0.7); Absolute Lymphocyte Count 1.39 10^3/uL (1.2-3.4); Absolute Monocyte Count 0.33 10^3/uL (0.1-0.8); Absolute Neutrophil Count 3.73 10^3/uL (1.2-6.7); Basophils % 0.7; HCT 23.4 % (36.0-46.0); Immature Grans % 0.4; Lymphocytes % 24.5; MCH 19.2 pg (27.0-33.0); MCHC 26.1 % (32.0-36.0); MCV 74 fL (80-95); Monocytes % 5.8; Neutrophils % 65.6; Nucleated RBC 0.4 % (0.0-0.3); Platelet Count 272 10^3/uL (130-400); RBC 3.18 10^6/uL (3.93-5.22); RDW 18.9 % (11.7-14.6); WBC 5.68 10^3/uL (4.4-10.8)
[2021-10-15 15:03] LABS: HGB 6.1 g/dL (11.2-15.7)
[2021-10-15 15:05] LABS: ALT 12 U/L (14-59); AST 11 U/L (15-37); Albumin 2.8 g/dL (3.4-5.0); Alkaline Phosphatase 210 U/L (46-116); Anion Gap 6.3 mmol/L (3-11); BUN 11 mg/dL (7-18); Bilirubin, Total 0.2 mg/dL (0.2-1.0); CO2 26.7 mmol/L (21.0-32.0); CREATININE 1.1 mg/dL (0.55-1.02); Calcium 8.2 mg/dL (8.5-10.1); Chloride 105 mmol/L (98-107); Estimated GFR 50.67 (mL/min/1.73m2); Glucose 96 mg/dL (74-106); Potassium 3.8 mmol/L (3.5-5.1); Sodium 138 mmol/L (136-145); Total Protein 6.5 g/dL (6.4-8.2)
[2021-10-15 15:18] LABS: Anisocytosis 2+; Basophilic Stippling 1+; Diff Comment RBC Morph Reviewed; Hypochromasia 2+; Microcytosis 2+; Poikilocytes 2+; Polychromasia Present
[2021-10-15] MEDS: ACETAMINOPHEN 1,000 MG/100 ML BTL 400 MG IVPB (15:20)
[2021-10-15] MEDS: Normal Saline 500 ML IV (15:20)
[2021-10-15 15:57] LABS: Lipase 110 U/L (73-393)
--- NOTE | 2021-10-15 17:57 | DI.VRAD_ITS ---
PROCEDURE INFORMATION: Exam: CT Abdomen And Pelvis Without Contrast Exam date and time: 10/15/2021 5:14 PM Age: 60 years old Clinical indication: Other: Diffuse intermittent abd pain, trace gi bleed, anemia, R/O diverticulitis, colitis TECHNIQUE: Imaging protocol: Computed tomography of the abdomen and pelvis without contrast. Radiation optimization: All CT scans at this facility use at least one of these dose optimization techniques: automated exposure control; mA and/or kV adjustment per patient size (includes targeted exams where dose is matched to clinical indication); or iterative reconstruction. Other contrast: Oral, gastroview 30 , 900; COMPARISON: CT ABD PELVIS WITH CONTRAST 08/18/2017 10:43 AM FINDINGS: Liver: Normal. No mass. Gallbladder and bile ducts: Cholecystectomy Pancreas: Normal. No ductal dilation. Spleen: Normal. No splenomegaly. Adrenal glands: Normal. No mass. Kidneys and ureters: There is no evidence of renal or ureteral calcifications. Stomach and bowel: At least 3 well delineated structures in the stomach show hyperdense periphery. The 1 in the proximal stomach measures 3 cm.. Mid stomach lesion measures 19 mm; the distal stomach lesion measures 3.6 cm They could represent atypical gastric lesion such as mass; ingested foreign bodies; or atypical reaction between the stomach and oral contrast. Clinical correlation is recommended. Diverticulosis of the rectosigmoid. No diverticulitis. Mild bowel wall thickening in the distal rectosigmoid and rectum. Series 2, image [id number] may represent mild colitis or proctitis Appendix: Normal appendix. Intraperitoneal space: Unremarkable. No free air. No significant fluid collection. Vasculature: Unremarkable. No abdominal aortic aneurysm. Lymph nodes: Unremarkable. No enlarged lymph nodes. Urinary bladder: Unremarkable as visualized. Reproductive: Surgical resection of the uterus Bones/joints: Unremarkable. No acute fracture. Soft tissues: Unremarkable. IMPRESSION: 1. Normal appendix. 2. At least 3 well delineated structures in the stomach show hyperdense periphery. The 1 in the proximal stomach measures 3 cm.. Mid stomach lesion measures 19 mm; the distal stomach lesion measures 3.6 cm They could represent atypical gastric lesion such as mass; ingested foreign bodies; or atypical reaction between the stomach and oral contrast. Clinical correlation is recommended. 3 Mild bowel wall thickening in the distal rectosigmoid and rectum. Series 2, image [id number] may represent mild colitis or proctitis Click critical result Dictated and Authenticated by: Santos Frost MD. Ordering:CARLOZ Harry MD
--- NOTE | 2021-10-15 18:31 | SCONE_ITS ---
Date of service: 10/15/21 Time of Service: 18:31 Assessment and Plan Assessment and plan (1) Lower extremity edema: Status: Acute (2) Acute anemia: Status: Acute (3) Bright red rectal bleeding: Status: Acute (4) Gastrointestinal disorder: Status: Acute (5) Morbid obesity: Status: Acute History of Present Illness Narrative: Patient was in the ER for bleeding. It was described as bright red blood per rectum per the ER physician, Dr. High. She was also found to have a hemoglobin of 0.4 I did come to see the patient to do a anoscopy. Patient is refusing any further treatment and insists that she is going home. I did attempt to discuss this with the patient that it is important that we try to find the etiology for her bleeding/anemia. Patient said she did not want an exam and was leaving. I will have my office reach out to her for repeat blood work and to set her up for a colonoscopy PFS All Active Problems (Updated 10/17/21 @ 11:00 by ADAM Sheridan) Lower extremity edema (Acute) Acute anemia (Acute) Bright red rectal bleeding (Acute) Gastrointestinal disorder (Acute) Morbid obesity (Acute) Chronic pain syndrome (Chronic 04/08/12) Diverticulitis (Chronic 08/27/17) Peptic ulcer (Chronic) Polyp of colon (Chronic) Substance abuse (Chronic) Tachycardia (Chronic) Tubular adenoma of colon (Chronic 04/18/16) Chronic diarrhea (Chronic 06/12/16) Intestinal or peritoneal adhesions with obstruction (postoperative) (p ostinfection) (Chronic 02/03/14) Medical History (Updated 10/17/21 @ 11:00 by ADAM Sheridan) Anxiety disorder Borderline personality disorder Candidal intertrigo Chronic back pain Depressive disorder Dysphagia (10/12/08) Elevated blood sugar Essential hypertension Headache Heel pain History of peptic ulcer Hyperlipidemia Left cervical radiculopathy Lumbar radiculopathy, right Lymphedema Migraine 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 Brother , AGE 51 Depression Brother , AGE 57 No problems noted. Brother Essential hypertension Asthma Brother Alcohol abuse Maternal Grandmother , age 86 Skin cancer Paternal Grandmother Cancer Son No problems noted. Daughter Depression Social History (Updated 10/17/21 @ 11:36 by ADAM Sheridan) Smoking/Tobacco Use Status: Current every day Tobacco Type: cigarettes Smoking risk assessment performed?: Yes Alcohol Intake: never Substance use type: does not use Duration: > 90 minutes/day Frequency: daily Elvia/Pentecostal: No preference Special elvia needs: No Do you feel safe at home: Yes Do you feel safe in your relationship?: Yes Results Last Vital Signs Temp 36.6 C 10/15/21 16:33 Pulse 70 10/15/21 17:01 Resp 18 10/15/21 17:01 BP 144/78 H 10/15/21 17:01 Pulse Ox 99 10/15/21 17:01 Labs Result diagrams: 10/15/21 14:45 10/15/21 14:45 Labs: Laboratory Results - last 24 hr 10/15/21 10/15/21 10/15/21 13:40 14:45 14:45 WBC 5.68 RBC 3.18 L Hgb 6.1 L* Hct 23.4 L MCV 74 L MCH 19.2 L MCHC 26.1 L RDW 18.9 H Plt Count 272 MPV 8.0 Immature Gran % 0.4 Neutrophils % 65.6 Lymphocytes % 24.5 Monocytes % 5.8 Eosinophils % 3.0 Basophils % 0.7 Nucleated RBC % 0.4 H Absolute Neutrophils 3.73 Absolute Lymphocytes 1.39 Absolute Monocytes 0.33 Absolute Eosinophils 0.17 Absolute Basophils 0.04 RBC Morphology See Below Polychromasia Present Hypochromasia 2+ Poikilocytosis 2+ Basophilic Stippling 1+ Anisocytosis 2+ Microcytosis 2+ Sodium 138 Potassium 3.8 Chloride 105 Carbon Dioxide 26.7 Anion Gap 6.3 BUN 11 Creatinine 1.1 H Estimated GFR/1.73 m2 50.67 Glucose 96 Calcium 8.2 L Total Bilirubin 0.2 AST 11 L ALT 12 L Alkaline Phosphatase 210 H Total Protein 6.5 Albumin 2.8 L Lipase Patient ABO/Rh O Negative Antibody Screen NEGATIVE Crossmatch See Detail 10/15/21 14:45 WBC RBC Hgb Hct MCV MCH MCHC RDW Plt Count MPV Immature Gran % Neutrophils % Lymphocytes % Monocytes % Eosinophils % Basophils % Nucleated RBC % Absolute Neutrophils Absolute Lymphocytes Absolute Monocytes Absolute Eosinophils Absolute Basophils RBC Morphology Polychromasia Hypochromasia Poikilocytosis Basophilic Stippling Anisocytosis Microcytosis Sodium Potassium Chloride Carbon Dioxide Anion Gap BUN Creatinine Estimated GFR/1.73 m2 Glucose Calcium Total Bilirubin AST ALT Alkaline Phosphatase Total Protein Albumin Lipase 110 Patient ABO/Rh Antibody Screen Crossmatch
== END 2021-10-15 18:36 | disposition left against medical advice (07) ==
PROVIDERS: Emergency Provider Physician Assistant; PCP Physician Assistant
DX: D64.9 Anemia, unspecified (principal); K62.5 Hemorrhage of anus and rectum; Z53.29 Procedure and treatment not carried out because of patient's decision for other reasons
CPT/HCPCS: 36415; 80053; 83690; 86850; 86900; 86901; 86920; 96361; 96374; 99283; 99284; 74176; 85025; J0131; P9016

== ENCOUNTER 2021-10-17 12:16 | Outpatient (CLI) | payer MEDICARE, MEDICAID, SELFPAY ==
[2021-10-17 12:50] LABS: HCT 27.6 % (36.0-46.0); HGB 7.8 g/dL (11.2-15.7)
[2021-10-17 13:06] LABS: Iron 14 ug/dL (50-170); Total Iron Binding Capacity 401 ug/dL (250-450); Transferrin Sat 3 % (15-50)
[2021-10-17 13:23] LABS: Ferritin 6 ng/mL (8-252)
[2021-10-17 13:52] LABS: NT-proBNP 626 pg/mL (<300)
== END 2021-10-17 12:17 | disposition home or self-care (01) ==
LOC: LBO 12:16
PROVIDERS: Physical Therapy Assistant; PCP Physician Assistant; Visit Provider Surgery
DX: D64.9 Anemia, unspecified (principal); R60.0 Localized edema; R00.0 Tachycardia, unspecified; Z86.010 Personal history of colon polyps
CPT/HCPCS: 99214; 82728; 82746; 83540; 83550; 83880; 85014; 85018

== ENCOUNTER → 2021-10-21 01:51 | Outpatient (CLI) | payer MEDICARE, MEDICAID, SELFPAY ==
--- NOTE | 2021-10-21 15:08 | DI.US_ITS ---
APPROVED REPORT EXAM: Comprehensive 2D, Doppler, and color-flow Echocardiogram Patient Location: Out-Patient Sdet: Tonia Moser RDCS (AE) Indications: Edema, Anemia, Pre-op Other Information Study Quality: Adequate Conclusion Normal left ventricular wall thickness and chamber size. Estimated ejection fraction is 60%. Wall m otion is normal Normal right ventricular size and systolic function Both atria are normal in size There is no structural or hemodynamically significant valvular disease Right ventricular systolic pressure is normal at 22 mmHg Wall motion Left Ventricle The left ventricle is normal size. The left ventricular systolic function is normal. The left ventric ular ejection fraction is within the normal range. There is normal left ventricular wall thickness. T here is normal LV segmental wall motion. There is no ventricular septal defect visualized. LVEF is 59 %. Right Ventricle The right ventricle is normal size. The right ventricular systolic function is normal. The RVSP is 21 .7mmHg. Atria The left atrium size is normal. The right atrium size is normal. The interatrial septum is intact wit h no evidence for an atrial septal defect. Aortic Valve The aortic valve is normal in structure. There is no aortic valvular stenosis. No aortic regurgitatio n is present. Mitral Valve The mitral valve is normal in structure. No evidence of mitral valve stenosis. Trace mitral regurgita tion. Tricuspid Valve The tricuspid valve is normal in structure. There is no tricuspid valve stenosis. Trace tricuspid reg urgitation. Pulmonic Valve The pulmonary valve is normal in structure. There is no pulmonic valvular stenosis. Trace pulmonic re gurgitation. Great Vessels The aortic root is normal in size. The ascending aorta is normal in size. Aortic arch is normal in ca liber. IVC is normal in size and collapses >50% with inspiration. Pericardium There is no pericardial effusion. 2D Dimensions IVSD d PLAX 0.99 cm F: 0.6-1.0 LV Vol A2C d MOD 102.4 mL LVPW d PLAX 1.00 cm F: 0.6 - 1.0 LV Vol A4C d MOD 90.1 mL LVID d PLAX 5.02 cm F: 3.8 - 5.2 LA vol/ BSA A2C s A-L 25.4 mL/m2 LVDs 3.30 cm F: 2.2 - 3.5 LA vol/ BSA A4C s A-L 23.5 mL/m2 Ao Root d 2.57 cm F: 2.7 - 3.3 LA Vol/ BSA Biplane s A-L 24.5 mL/m2 RA Area A4C 13.63 cm2 LA Area A4C s MOD 18.19 cm2 RA Vol/ BSA A4C s A-L 14.7 mL/m2 LA Area A2C s MOD 18.85 cm2 Ao Asc Diam d 2.95 cm F: 2.3 - 3.1 LV EF A4C MOD 57.7 % LV EF Teichholz 61.9 % LV EF A2C MOD 60.7 % LVEF (De Oliveira's) 58.92 % F: 54 - 74 LV EF Biplane MOD 58.9 % LV Volume 71.33 mL F: 46 - 106 SV 57.31 mL LV Volume Index 33.33 mL/m2 F: 29 - 61 SV Index 26.74 mL/m2 LV Vol Biplane MOD 97.3 mL FS 33.40 % M-Mode TAPSE 2.36 cm (M/F) >1.7 LV Diastology MV E' medial 0.155 (>0.07 m/s) E/A Ratio 1.4 LV E/e MED 6.90 (<14) MV E Vmax 1.08 (0.4-1.3 m/s) MV E' lateral 0.134 (>0.1 m/s) MV A Vmax 0.80 (0.4-1.3 m/s) LV E/e LAT 8.00 (<14) MV E/A Ratio 1.32 MV E/E' medial 6.95 MV E/E' lateral 8.05 Aortic Valve LVOT Area 3.23 cm2 AoV Area Vmax 2.76 cm2 LVOT Vmax 1.03 m/s AoV Area/ BSA (Vmax) 1.29 cm2/m2 LVOT Mean Morales. 0.67 m/s ZOEY Mean Morales. 2.61 cm2 LVOT Peak Grad 4.2 mmHg ZOEY Mean Morales. Index 1.22 cm2/m2 LVOT Mean Grad 2.1 mmHg LVOT VTI 0.213 m LVOT Diam s 2.00 cm AoV Vmax 1.20 m/s Velocity Ratio 0.85 AoV Mean Morales. 0.83 m/s AoV Peak Grad 5.8 mmHg LVOT SV 68.72 mL AoV Mean Grad 3.0 mmHg AoV VTI 0.239 m AoV Area VTI 2.88 cm2 AoV Area/ BSA (VTI) 1.34 cm/m2 Mitral Valve MV DT 212 (160-240 msec) MV PHT 62 msec MV Area PHT 3.57 cm2 MV VTI 0.266 m MV Area VTI 2.58 (4.0-6.0 cm2) Pulmonary Valve PV Vmax 0.81 (0.5-1.5 m/s) RVOT Peak Gr. 1.77 mmHg PV Peak Grad 2.6 mmHg RVOT Mean Gr. 0.95 mmHg PV Mean Grad 1.5 mmHg RVOT VTI 0.138 m PV VTI 0.160 m RVOT Vmax 0.67 m/s Tricuspid Valve TR Peak Grad 18.6 mmHg TR Vmax 2.16 m/s RA Pressure 3.00 mmHg RVSP (TR) 21.7 mmHg
== END ==
PROVIDERS: PCP Physician Assistant; Visit Provider Physical Therapy Assistant
DX: D64.9 Anemia, unspecified (principal); R60.0 Localized edema
CPT/HCPCS: 93306

== ENCOUNTER 2021-10-24 12:41 | Emergency (ER) | payer MEDICARE, MEDICAID, SELFPAY ==
--- NOTE | 2021-10-24 12:45 | DI.US_ITS ---
Exam(s) US LOWER EXTREMITY VENOUS LT EXAM: US LOWER EXTREMITY VENOUS LT CLINICAL HISTORY: Left leg swelling, pain, redness, r/o dvt. TECHNIQUE: Lower extremity venous ultrasound performed using grayscale, color-flow, and spectral Do ppler analysis. COMPARISON: No exams were available for comparison FINDINGS: The common femoral, femoral and popliteal veins demonstrate normal compressibility, augmentation, and color Doppler. The posterior tibial veins are patent. No saphenous vein thrombosis or other superfi cial venous thrombosis is seen. A Muniz's cyst is seen, measuring 4.9 x 1.6 x 3.8 cm. IMPRESSION: Small Muniz's cyst. No evidence of DVT. DATA REPOSITORY:
[2021-10-24 12:50] VITALS: BP 169/93; PULSE 82; RESP 18; TEMP 36.8; O2SAT 100
--- NOTE | 2021-10-24 13:00 | ED.GENADUL_ITS ---
Discharge Plan Disposition Patient Disposition: HOME Condition: Stable Discharge Details Clinical Impression: Muniz's cyst of knee, Left leg pain Primary Care Provider: Colten Grover ED Provider: Kamryn High Home Meds and New Rx's Prescriptions: New tramadol 50 mg tablet 50 mg PO TID PRN (Reason: pain) Qty: 10 0RF Continued propranolol 80 mg capsule,extended release 24 hr 80 mg PO DAILY Qty: 90 4RF [id number]-[id number] 50-325-40 mg capsule 1 cap PO Q6H PRN ferrous sulfate 325 mg (65 mg iron) tablet,delayed release (DR/EC) 325 mg PO DAILY gabapentin 600 mg tablet 600 mg PO TID furosemide 20 mg tablet 20 mg PO QAM amitriptyline 25 mg tablet 25 mg PO QHS atorvastatin 40 mg tablet 40 mg PO DAILY bisacodyl [Dulcolax (bisacodyl)] 5 mg tablet,delayed release (DR/EC) 5 mg PO ONCE Qty: 4 0RF Rx Instructions: Take according to provider's instructions for colonoscopy prep. polyethylene glycol 3350 17 gram/dose powder 17 g PO ONCE Qty: 238 0RF Rx Instructions: To be taken as directed by prescriber's office for colonoscopy prep. multivitamin [Daily Multi-Vitamin] 1 EACH tablet 1 ea PO DAILY bupropion HCl (smoking deter) 150 MG tablet extended release 12 hr 150 mg PO DAILY AM Qty: 60 desvenlafaxine succinate [Pristiq] 100 MG tablet extended release 24 hr 100 mg PO DAILY Qty: 30 Probiotic 1 EACH capsule 1 ea PO AC Qty: 90 nystatin 100,000 unit/gram powder 1 applic Topical BID PRN (Reason: intertrigo) Qty: 60 4RF lisinopril 10 mg tablet 10 mg PO DAILY naloxone [Narcan] 4 mg/actuation spray,non-aerosol 1 spray intranasal Q2M PRN Rx Instructions: spray 1 dose into ONE nostril; alternate nostrils w each dose until help arrives diazepam [Valium] 10 MG tablet 10 units PO HS omeprazole 40 mg capsule,delayed release(DR/EC) 40 cap PO DAILY alprazolam 0.5 mg tablet 0.5 tab PO DAILY PRN Label Comments: TAKE 1 TABLET BY MOUTH ONCE DAILY NEEDED FOR ANXIETY/PANIC Discharge Instructions Instructions: Muniz Cyst (ED), Leg Pain (ED) Additional Instructions: Your lab work today is reassuring and does not appear consistent with a significant leg infection at this time. Your ultrasound did not show evidence of a blood clot but did note a Muniz's cyst behind your left knee which may be the cause of your leg pain. Rest, ice, and elevate the affected area as much as possible. Take Tylenol as needed and directed for pain. Take the tramadol as needed and directed for pain not relieved with Tylenol. Follow-up with your primary care doctor in 1 week. Return to the emergency department with any worsening or new concerning symptoms such as fever, increased pain, redness or swelling. Discharge Data Discharge Date/Time-TO BE ENTERED AT DEPARTURE: 10/24/21 15:13 Discharge Physician: Kamryn High Medical Decision Making 60-year-old female with history of obesity, chronic anemia, known GI bleed for which she is following up with surgery for planned upper and lower endoscopy presents for left leg pain, redness, swelling and warmth to the touch for the past few days. Patient appears comfortable and nontoxic. Her vitals are within normal limits. Her left leg appears edematous compared to the right leg but no significant cellulitis or evidence of trauma. She is neurovascularly intact. Patient referred for labs and leg ultrasound. Labs reassuring with normal white blood cell count and a minimally elevated CRP at 0.86. Left leg ultrasound notes a Muniz's cyst but no DVT. Discussed with patient that her symptoms could be secondary to Muniz's cyst but I do not see medication for antibiotics at this time. Patient is agreeable with plan and will be discharged home. She was recommended to rest, ice, elevate and wear compression stockings to her left leg. She cannot take NSAIDs due to her history of anemia with recent GI bleed. She denies relief with Tylenol. We will send a prescription for tramadol electronically to her pharmacy. Advised to follow-up with her PCP. Usual and customary return precautions given prior to discharge. Medical Records Medical records reviewed: Yes I reviewed the patient's medical records. Imaging Data Radiologic Study: Radiologist's impression: US LOWER EXTREMITY VENOUS LT CLINICAL HISTORY: ? Left leg swelling, pain, redness, r/o dvt.? TECHNIQUE: ? Lower extremity venous ultrasound performed using grayscale, color- flow, and spectral Doppler analysis. COMPARISON:? No exams were available for comparison FINDINGS: The common femoral, femoral and popliteal veins demonstrate normal compressibility, augmentation, and color Doppler. The posterior tibial veins are patent.? No saphenous vein thrombosis or other superficial venous thrombosis is seen.? A Muniz's cyst is seen, measuring 4.9 x 1.6 x 3.8 cm. IMPRESSION: Small Muniz's cyst.? No evidence of DVT.? Lab Data Lab results reviewed: Yes I reviewed the patient's lab results. Labs: Laboratory Tests Range/Units 10/24/21 10/24/21 13:10 13:10 WBC (4.4-10.8) 10^3/uL 5.63 RBC (3.93-5.22) 10^6/uL 3.85 L Hgb (11.2-15.7) g/dL 7.7 L Hct (36.0-46.0) % 28.7 L MCV (80-95) fL 75 L MCH (27.0-33.0) pg 20.0 L MCHC (32.0-36.0) % 26.8 L RDW (11.7-14.6) % 19.7 H Plt Count (130-400) 10^3/uL 283 MPV (8.0-11.0) fL 7.6 L Immature Gran % 0.2 Neutrophils % 61.9 Lymphocytes % 25.2 Monocytes % 8.3 Eosinophils % 3.2 Basophils % 1.2 Nucleated RBC % (0.0-0.3) % 0.0 Absolute Neutrophils (1.2-6.7) 10^3/uL 3.48 Absolute Lymphocytes (1.2-3.4) 10^3/uL 1.42 Absolute Monocytes (0.1-0.8) 10^3/uL 0.47 Absolute Eosinophils (0.0-0.7) 10^3/uL 0.18 Absolute Basophils (0.0-0.2) 10^3/uL 0.07 RBC Morphology See Below Polychromasia Present Hypochromasia 1+ Microcytosis 1+ Sodium (136-145) mmol/L 136 Potassium (3.5-5.1) mmol/L 3.9 Chloride (98-107) mmol/L 103 Carbon Dioxide (21.0-32.0) mmol/L 26.3 Anion Gap (3-11) mmol/L 6.7 BUN (7-18) mg/dL 12 Creatinine (0.55-1.02) mg/dL 1.2 H Estimated GFR/1.73 m2 (mL/min/1.73m2) 45.83 Glucose (74-106) mg/dL 103 Calcium (8.5-10.1) mg/dL 8.6 Total Bilirubin (0.2-1.0) mg/dL 0.2 AST (15-37) U/L 12 L ALT (14-59) U/L 15 Alkaline Phosphatase (46-116) U/L 217 H C-Reactive Protein (0.0-0.3) mg/dL 0.86 H Total Protein (6.4-8.2) g/dL 7.1 Albumin (3.4-5.0) g/dL 3.2 L HPI General Mode of arrival: ambulatory . Date/Time Provider Initiated Documentation: 10/24/21 12:56 . Limitations to Documentation: no limitations . Information obtained by: patient . HPI Narrative: Patient is a 50-year-old female presents with left leg pain, redness and feeling warm to touch for the past few days. Patient states the pain is worse in her left lateral leg and calf. She denies any known recent injury. She denies fever. Related Data Home Medications Medication Instructions Recorded Confirmed multivitamin (Daily Multi-Vitamin 1 ea PO DAILY 07/27/12 10/24/21 tablet) bupropion HCl (smoking deter) 150 150 mg PO DAILY AM #60 tab-caps 03/03/13 10/24/21 mg tablet,12 hr sustained-release(smoking deterrent) diazepam 10 mg tablet (Valium) 10 units PO HS 02/03/14 10/24/21 desvenlafaxine succinate 100 mg 100 mg PO DAILY #30 tabs 05/05/14 10/24/21 tablet,extended release 24 hr (Pristiq) Lactobacillus acidophilus and 1 ea PO AC #90 caps 09/16/16 10/24/21 rhamnosus 15 billion cell capsule (Probiotic) propranolol 80 mg capsule,24 80 mg PO DAILY migraine 08/16/19 10/24/21 hr,extended release prophylaxis #90 caps nystatin 100,000 unit/gram topical 1 applic topical BID PRN 04/17/20 10/24/21 powder intertrigo #60 grams lisinopril 10 mg tablet 10 mg PO DAILY 11/15/20 10/24/21 naloxone 4 mg/actuation nasal 1 spray intranasal Q2M PRN 11/15/20 10/24/21 spray (Narcan) [id number]-wqznohvksntjh-[id number] 1 cap PO Q6H PRN 11/29/20 10/24/21 50 mg-325 mg-40 mg capsule alprazolam 0.5 mg tablet 0.5 tab PO DAILY PRN 09/13/21 10/24/21 omeprazole 40 mg capsule,delayed 40 cap PO DAILY 09/13/21 10/24/21 release amitriptyline 25 mg tablet 25 mg PO QHS 10/17/21 10/24/21 atorvastatin 40 mg tablet 40 mg PO DAILY 10/17/21 10/24/21 bisacodyl 5 mg tablet,delayed 5 mg PO ONCE #4 tabs 10/17/21 10/24/21 release (Dulcolax (bisacodyl)) ferrous sulfate 325 mg (65 mg 325 mg PO DAILY 10/17/21 10/24/21 iron) tablet,delayed release furosemide 20 mg tablet 20 mg PO QAM 10/17/21 10/24/21 gabapentin 600 mg tablet 600 mg PO TID 10/17/21 10/24/21 polyethylene glycol 3350 17 17 g PO ONCE #238 grams 10/17/21 10/24/21 gram/dose oral powder tramadol 50 mg tablet 50 mg PO TID PRN pain #10 tabs 10/24/21 Previous Rx's Medication Instructions Recorded propranolol 80 mg capsule,24 80 mg PO DAILY migraine 08/16/19 hr,extended release prophylaxis #90 caps nystatin 100,000 unit/gram topical 1 applic topical BID PRN 04/17/20 powder intertrigo #60 grams bisacodyl 5 mg tablet,delayed 5 mg PO ONCE #4 tabs 10/17/21 release (Dulcolax (bisacodyl)) polyethylene glycol 3350 17 17 g PO ONCE #238 grams 10/17/21 gram/dose oral powder tramadol 50 mg tablet 50 mg PO TID PRN pain #10 tabs 10/24/21 Allergies Allergy/AdvReac Type Severity Reaction Status Date / Time pregabalin [From Lyrica] Allergy Unverified 10/24/21 12:57 prednisone AdvReac Severe GI upset Verified 10/24/21 12:57 topiramate AdvReac Severe Suicical Verified 10/24/21 12:57 ideation NSAIDS (Non-Steroidal AdvReac Intermediate blood in Verified 10/24/21 12:57 Anti-Inflamma stool aspirin AdvReac Verified 10/24/21 12:57 General Stated Complaint: Orthopedic RADHA: 4 Review of Systems All systems reviewed & are unremarkable except as noted in HPI and below Constitutional Constitutional: Reports as per HPI, Denies chills and Denies fever(s) Eyes Eyes: Denies blurry vision ENT Ears, Nose, Mouth, and Throat: Denies dizziness, Denies sore throat and Denies throat swelling Cardiovascular Cardiovascular: Denies chest pain and Denies dyspnea Respiratory Respiratory: Denies cough and Denies dyspnea Gastrointestinal Gastrointestinal: Denies abdominal pain, Denies diarrhea and Denies vomiting Genitourinary Genitourinary: Denies hematuria and Denies dysuria Musculoskeletal Musculoskeletal: Denies back pain and Denies numbness Comments: L leg pain, redness, and swelling Integumentary/Breasts Skin/Breast: Denies lesions and Denies rash Neurologic Neurologic: Denies dizziness, Denies localized weakness and Denies numbness Allergic/Immunologic Allergic/Immunologic: Denies throat swelling PFSH All Active Problems (Updated 10/24/21 @ 15:03 by Kamryn High DO) Muniz's cyst of knee (Acute) Left leg pain (Acute) Lower extremity edema (Acute) Acute anemia (Acute) Bright red rectal bleeding (Acute) Gastrointestinal disorder (Acute) Morbid obesity (Acute) Chronic pain syndrome (Chronic 04/08/12) Diverticulitis (Chronic 08/27/17) Peptic ulcer (Chronic) Polyp of colon (Chronic) Substance abuse (Chronic) Tachycardia (Chronic) Tubular adenoma of colon (Chronic 04/18/16) Chronic diarrhea (Chronic 06/12/16) Intestinal or peritoneal adhesions with obstruction (postoperative) (postinfection) (Chronic 02/03/14) Medical History (Updated 10/24/21 @ 15:03 by Kamryn High DO) Anxiety disorder Borderline personality disorder Candidal intertrigo Chronic back pain Depressive disorder Dysphagia (10/12/08) Elevated blood sugar Essential hypertension Headache Heel pain History of peptic ulcer Hyperlipidemia Left cervical radiculopathy Lumbar radiculopathy, right Lymphedema Migraine 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 Brother , AGE 51 Depression Brother , AGE 57 No problems noted. Brother Essential hypertension Asthma Brother Alcohol abuse Maternal Grandmother , age 86 Skin cancer Paternal Grandmother Cancer Son No problems noted. Daughter Depression Social History (Updated 10/17/21 @ 11:36 by ADAM Sheridan) Smoking/Tobacco Use Status: Current every day Tobacco Type: cigarettes Smoking risk assessment performed?: Yes Alcohol Intake: never Drug use: Never Substance use type: does not use Duration: > 90 minutes/day Frequency: daily Elvia/Episcopalian: No preference Special elvia needs: No Do you feel safe at home: Yes Do you feel safe in your relationship?: Yes Exam Const General: cooperative and no acute distress Orientation: alert, awake and oriented x3 HENMT Head: normal to inspection Mouth: oral mucosae normal Eyes General: appearance normal, both eyes and all related structures Neck Neck: normal visual inspection Resp Effort & Inspection: normal respiratory effort and able to speak in complete sentences Cardio Rate: regular rate Skin General skin exam: no rashes or lesions noted Neuro General: patient alert, patient awake and patient oriented x3 Motor: muscle tone normal throughout Extrem Other: Left lower extremity: Left leg appears more edematous compared to right leg. There is no pitting edema. There is pain with varus stress and some tenderness to palpation to the posterior knee. There is no significant erythema, edema, ecchymosis, rash or lesions noted to the left leg. Bilateral distal lower extremity pulses intact. Psych Appearance: grossly normal Affect: normal affect Course Vital Signs Vital signs: Vital Signs Temperature 98.2 F 10/24/21 12:50 Pulse 82 10/24/21 12:50 Respiratory Rate 18 10/24/21 12:50 Blood Pressure 169/93 H 10/24/21 12:50 Pulse Oximetry 100 10/24/21 12:50 Temperature 98.2 F 10/24/21 12:50 Temperature Source Temporal Artery Scan 10/24/21 12:50 Pulse 82 10/24/21 12:50 Respiratory Rate 18 10/24/21 12:50 Respiratory Effort Non-Labored 10/24/21 12:54 Blood Pressure 169/93 H 10/24/21 12:50 Blood Pressure Position Sitting 10/24/21 12:50 Pulse Oximetry 100 10/24/21 12:50 Oxygen Delivery Method Room Air 10/24/21 12:50 Oxygen Flow Rate 0 10/24/21 12:50 Pain Level 6 10/24/21 12:56
[2021-10-24 13:15] LABS: Abs Immature Grans 0.01 10^3/uL (0.0-0.06); Absolute Basophil Count 0.07 10^3/uL (0.0-0.2); Absolute Eosinophil Count 0.18 10^3/uL (0.0-0.7); Absolute Lymphocyte Count 1.42 10^3/uL (1.2-3.4); Absolute Monocyte Count 0.47 10^3/uL (0.1-0.8); Absolute Neutrophil Count 3.48 10^3/uL (1.2-6.7); Basophils % 1.2; Eosinophils % 3.2; HCT 28.7 % (36.0-46.0); HGB 7.7 g/dL (11.2-15.7); Immature Grans % 0.2; Lymphocytes % 25.2; MCHC 26.8 % (32.0-36.0); MCV 75 fL (80-95); MPV 7.6 fL (8.0-11.0); Monocytes % 8.3; Neutrophils % 61.9; Platelet Count 283 10^3/uL (130-400); RBC 3.85 10^6/uL (3.93-5.22); RDW 19.7 % (11.7-14.6); RDW-SD 53.1 fL; WBC 5.63 10^3/uL (4.4-10.8)
[2021-10-24 13:31] LABS: ALT 15 U/L (14-59); AST 12 U/L (15-37); Albumin 3.2 g/dL (3.4-5.0); Alkaline Phosphatase 217 U/L (46-116); Anion Gap 6.7 mmol/L (3-11); BUN 12 mg/dL (7-18); Bilirubin, Total 0.2 mg/dL (0.2-1.0); C-Reactive Protein 0.86 mg/dL (0.0-0.3); CO2 26.3 mmol/L (21.0-32.0); CREATININE 1.2 mg/dL (0.55-1.02); Calcium 8.6 mg/dL (8.5-10.1); Chloride 103 mmol/L (98-107); Estimated GFR 45.83 (mL/min/1.73m2); Glucose 103 mg/dL (74-106); Potassium 3.9 mmol/L (3.5-5.1); Sodium 136 mmol/L (136-145); Total Protein 7.1 g/dL (6.4-8.2)
[2021-10-24 13:32] LABS: Diff Comment RBC Morph Reviewed
[2021-10-24 13:33] LABS: Hypochromasia 1+; Microcytosis 1+; Polychromasia Present
[2021-10-24 14:52] VITALS: BP 132/93; PULSE 78; TEMP 36; O2SAT 99
== END 2021-10-24 15:13 | disposition home or self-care (01) ==
PROVIDERS: Emergency Provider Physician Assistant; PCP Physician Assistant
DX: M71.22 Synovial cyst of popliteal space [Baker], left knee (principal); M79.602 Pain in left arm
CPT/HCPCS: 80053; 99284; 85025; 86140; 93971; 99283

== ENCOUNTER 2021-10-28 03:21 | Outpatient (CLI) | payer MEDICARE, MEDICAID, SELFPAY ==
[2021-10-28 11:30] LABS: Source Nasal/Nares
[2021-10-28 14:20] LABS: COVID-19 PCR Negative (Negative)
== END 2021-10-28 03:22 | disposition home or self-care (01) ==
LOC: LBO 03:21
PROVIDERS: PCP Physician Assistant; Visit Provider Surgery
DX: Z20.822 Contact with and (suspected) exposure to COVID-19 (principal); Z01.818 Encounter for other preprocedural examination
CPT/HCPCS: 87635; U0005

== ENCOUNTER 2021-10-29 08:59 | Day surgery (SDC) | payer MEDICARE, MEDICAID, SELFPAY ==
--- NOTE | 2021-10-28 14:02 | W.COLOREPORT ---
Colonoscopy Report Date of procedure: 10/29/21 Pre-op diagnosis general: anemia/BRBPR Post-op diagnosis procedure note: other (diverticula/internal hemorrhoids) Surgeon: Stephanie Espinoza Anesthesia Type: General:No Airway Estimated blood loss (mL): 2 Pathology: none sent Complications: Other Disposition: same day Prep: Miralax/Dulcolax Retraction Time: 15 Procedure Description: After informed consent was obtained the patient was taken to the procedure room and placed in a left decubitous position. Monitors were applied and a time out was done. The patients name, date of , procedure, allergies to medications and metal in their body was reviewed. The patient was then sedated. Once sedated and comfortable a rectal exam was done. External exam was normal. Internal exam revealed a normal sphincter tone and no palpable masses. The scope was then introduced and retrofelexed. Grade II internal hemorrhoids were identified. The scope was then advanced to the cecum w/out difficulty. The TI and appendiceal orifice were identified. The prep was BBPS 3 in all segments for a total of 9. The scope was then slowly retracted over 15 minutes back into the rectum. There are no colon polyps visualized today. She does have minor diverticula from the transverse colon to the sigmoid colon. There is no signs of active bleeding or infection. She does have grade 2 internal hemorrhoids. One of them does appear to be erythematous and irritated. All 3 quadrants are banded today and then injected with 20 cc of .25% Marcaine w/ epi. Gelfoam is placed in the rectum. The scope was removed and the patient was woken up and taken back to Same day surgery in stable condition. The patient tolerated the procedure well and there were no immediate complications. Follow up: The patient should follow up in 10 years unless they develop changes in bowel habits or other new gastrointestinal complaints. Patient is given instructions in wound care, activity, and warning signs, and will follow-up in clinic in 3 weeks for hemoglobin check.
--- NOTE | 2021-10-28 14:03 | ENDO_ITS ---
Date of service: 10/29/21 Time of Service: 20:46 Endoscopy Report DATE OF PROCEDURE: 10/29/21 PRE-OP DIAGNOSIS: anemia POST-OP DIAGNOSIS: other (Mild gastritis/mild esophagitis) SURGEON: Stephanie Espinoza ANESTHESIA TYPE: General:No Airway ESTIMATED BLOOD LOSS: 1 PATHOLOGY: other COMPLICATIONS: None DISPOSITION: same day PREP: Miralax/Dulcolax PROCEDURE DESCRIPTION: After informed consent was obtained the patient was take to the procedure room a nd placed in a supine position. Monitors were applied and a time out was done. The patients name, date of , procedure type, allergies to medications and metal in their body was reviewed. A bite block was placed and the patient was sedated. Once sedated and comfortable the gastroscope was advanced through the oropharynx which was grossly normal into the esophagus. The proximal and mid-esophagus were nl. In the distal esophagus there was mild esophagitss noted. There is no esophageal erosion lesions/varices/diverticula/stricture visualized today. The scope was advanced into the stomach and through the pylorus into the 3rd portion of the duodenum. The duodenum was noted to be nl. Biopsies were done - all specimens are retrieved and no bleeding is noted. The scope was retracted back into the stomach and biopsies were done to rule out H. pylori. There were no ulcers. There is mild erythema at the antrum and the dependent portion of the stomach. The scope was retroflexed. The cardia and fundus were noted to be normal. There is no hiatal hernia noted. The scope was retracted back into the esophagus and biopsies were done of the GE junction to rule out Ford's. The Z line was irregular. The GE junction was at 38cm/distal GE at 36cm. The scope was removed and the patient was woken up and taken back to [facility] in stable condition. Follow up: 3 wks
[2021-10-29 09:05] VITALS: BP 121/84; PULSE 83; RESP 16; TEMP 36.6; O2SAT 99
--- NOTE | 2021-10-29 09:26 | W.ANESPRE ---
General Info Date of Service Date Performed: 10/29/21 Height: 5 ft 4 in Weight: 112.491 kg Body Mass Index (BMI): 42.5 Surgical Procedure: Operation Date: 10/29/21 09:05 Proposed Procedure Side Surgeon p Colonoscopy/Gastroscopy Stephanie Espinoza, Meds Allergies and Home Medications Allergies Allergy/AdvReac Type Severity Reaction Status Date / Time pregabalin [From Lyrica] Allergy Intermediate Other (See Unverified 10/29/21 09:19 Comment) prednisone AdvReac Severe GI upset Verified 10/29/21 09:19 topiramate AdvReac Severe Suicical Verified 10/29/21 09:19 ideation NSAIDS (Non-Steroidal AdvReac Intermediate blood in Verified 10/29/21 09:19 Anti-Inflamma stool aspirin AdvReac Verified 10/29/21 09:19 Home Medication Medication Instructions Recorded multivitamin (Daily Multi-Vitamin 1 ea PO DAILY 07/27/12 tablet) bupropion HCl (smoking deter) 150 150 mg PO DAILY AM #60 tab-caps 03/03/13 mg tablet,12 hr sustained-release(smoking deterrent) diazepam 10 mg tablet (Valium) 10 units PO HS 02/03/14 desvenlafaxine succinate 100 mg 100 mg PO DAILY #30 tabs 05/05/14 tablet,extended release 24 hr (Pristiq) Lactobacillus acidophilus and 1 ea PO AC #90 caps 09/16/16 rhamnosus 15 billion cell capsule (Probiotic) propranolol 80 mg capsule,24 80 mg PO DAILY migraine 08/16/19 hr,extended release prophylaxis #90 caps nystatin 100,000 unit/gram topical 1 applic topical BID PRN 04/17/20 powder intertrigo #60 grams lisinopril 10 mg tablet 10 mg PO DAILY 11/15/20 naloxone 4 mg/actuation nasal 1 spray intranasal Q2M PRN 11/15/20 spray (Narcan) [id number]-fzwennmvntnjd-usprmbtv 1 cap PO Q6H PRN 11/29/20 50 mg-325 mg-40 mg capsule alprazolam 0.5 mg tablet 0.5 tab PO DAILY PRN 09/13/21 omeprazole 40 mg capsule,delayed 40 cap PO DAILY 09/13/21 release amitriptyline 25 mg tablet 25 mg PO QHS 10/17/21 atorvastatin 40 mg tablet 40 mg PO DAILY 10/17/21 bisacodyl 5 mg tablet,delayed 5 mg PO ONCE #4 tabs 10/17/21 release (Dulcolax (bisacodyl)) ferrous sulfate 325 mg (65 mg 325 mg PO DAILY 10/17/21 iron) tablet,delayed release furosemide 20 mg tablet 20 mg PO QAM 10/17/21 gabapentin 600 mg tablet 600 mg PO TID 10/17/21 polyethylene glycol 3350 17 17 g PO ONCE #238 grams 10/17/21 gram/dose oral powder tramadol 50 mg tablet 50 mg PO TID PRN pain #10 tabs 10/24/21 Current Visit Medications: Current Medications Generic Name Dose Route Start Last Admin Trade Name Freq PRN Reason Stop Dose Admin Hyoscyamine Sulfate 0.125 mg 10/28/21 12:49 Hyoscyamine 0.125 Mg Sl/Oral/Chew SL DIRECTED PRN Ringer's Solution 1,000 mls @ 80 mls/hr 10/29/21 06:00 IV 11/27/21 23:59 INFUSION [facility] Iron Sucrose 200 mg/ Sodium 110 mls @ 440 mls/hr 10/29/21 06:00 Chloride IVPB 10/29/21 23:59 TODAY [facility] IV Miscellaneous Supplies 1 each 10/29/21 06:00 Iv Access IV 11/27/21 23:59 DIRECTED [facility] Ondansetron HCl 4 mg 10/28/21 12:49 Ondansetron 4 Mg/2 Ml Vial IVP Q4H PRN PRN Nausea / Vomiting Sodium Chloride 0 ml 10/29/21 06:00 Normal Saline Flush 10 Ml Syr IV 11/27/21 23:59 PRN PRN Sodium Chloride 0 ml 10/29/21 06:00 Normal Saline 10 Ml Vial IJ 11/27/21 23:59 DIRECTED PRN Sterile Water 0 ml 10/29/21 06:00 Water,Injection,Sterile 10 Ml Vial IJ 11/27/21 23:59 DIRECTED PRN PFSH Active Problems Active Problems: Problem Status Onset Code Muniz's cyst of knee M71.20 Left leg pain M79.605 Lower extremity edema R60.0 Acute anemia D64.9 Bright red rectal bleeding K62.5 Gastrointestinal disorder K92.9 Morbid obesity E66.01 Chronic pain syndrome 04/08/12 G89.4 Diverticulitis 08/27/17 K57.92 Peptic ulcer K27.9 Polyp of colon K63.5 Substance abuse F19.10 Tachycardia R00.0 Tubular adenoma of colon 04/18/16 D12.6 Chronic diarrhea 06/12/16 K52.9 Intestinal or peritoneal adhesions with obstruction (postoperative) (postinfection) 02/03/14 K56.5 Medical History Medical History Anxiety disorder Borderline personality disorder Candidal intertrigo Chronic back pain Depressive disorder Dysphagia (10/12/08) Elevated blood sugar Essential hypertension Headache Heel pain History of peptic ulcer Hyperlipidemia Left cervical radiculopathy Lumbar radiculopathy, right Lymphedema Migraine cerviogenic CHOI & analgesia rebound Optic nerve atrophy Panic attacks Peripheral neuropathy Pes planus Pharyngitis Polypharmacy Spinal stenosis of lumbar region (11/11/16) Surgical History Surgical History Abdominal hysterectomy (~2000) Bilateral salpingectomy with oophorectomy Cholecystectomy (~12/2008) w/ cholangiogram Colonoscopy - MAC (04/18/09) Tobacco Smoking/Tobacco Use Status: Current every day Tobacco Type: cigarettes Passive smoking exposure: No Alcohol Alcohol Intake: never Substance Use Substance use: Never Substance use type: does not use Vital Signs and Lab Results Lab Results Result Diagrams: 10/29/21 09:11 Blood Type / Crossmatch: Patient ABO/Rh O Negative 10/15/21 Antibody Screen NEGATIVE 10/15/21 Crossmatch See Detail 10/15/21 Complete Blood Count: White Blood Count 5.63 10^3/uL (4.4-10.8) 10/24/21 13:10 Red Blood Count 3.85 10^6/uL (3.93-5.22) L 10/24/21 13:10 Hemoglobin 7.7 g/dL (11.2-15.7) L 10/24/21 13:10 Hematocrit 28.7 % (36.0-46.0) L 10/24/21 13:10 Platelet Count 283 10^3/uL (130-400) 10/24/21 13:10 Complete Metabolic Panel: Sodium Level 136 mmol/L (136-145) 10/24/21 13:10 Potassium Level 3.9 mmol/L (3.5-5.1) 10/24/21 13:10 Chloride Level 103 mmol/L (98-107) 10/24/21 13:10 Carbon Dioxide Level 26.3 mmol/L (21.0-32.0) 10/24/21 13:10 Blood Urea Nitrogen 12 mg/dL (7-18) 10/24/21 13:10 Creatinine 1.2 mg/dL (0.55-1.02) H 10/24/21 13:10 Estimated GFR/1.73 m2 45.83 (mL/min/1.73m2) 10/24/21 13:10 Calcium Level 8.6 mg/dL (8.5-10.1) 10/24/21 13:10 Albumin 3.2 g/dL (3.4-5.0) L 10/24/21 13:10 Glucose Level 103 mg/dL (74-106) 10/24/21 13:10 C-Reactive Protein 0.86 mg/dL (0.0-0.3) H 10/24/21 13:10 Liver Function Panel: Alanine Aminotransferase (ALT/SGPT) 15 U/L (14-59) 10/24/21 13:10 Aspartate Amino Transf (AST/SGOT) 12 U/L (15-37) L 10/24/21 13:10 Coagulation Panel: No Data to Display Cardiac Panel: UU-Fsj-R-Type Natriuretic Peptide 626 pg/mL (<300) H 10/17/21 Arterial Blood Gas: No Data to Display Venous Blood Gas: No Data to Display Pancreas Panel: Lipase 110 U/L (73-393) 10/15/21 14:45 Thyroid Panel: No Data to Display Infectious Disease: Coronavirus (COVID-19)(PCR) Negative (Negative) 10/28/21 07:10 Coronavirus 2019 Source Nasal/Nares 10/28/21 07:10 Blood Cultures: No Data to Display Toxicology Panel: No Data to Display Anesthesia Assessment and Plan Anesthesia History Personal History: No History of Anesthesia Complications Family History: No Family History of Anesthesia Complications Exercise Tolerance Exercise Tolerance: Metabolic Equivalents>4 Pertinent Negatives Pertinent Negatives: No Symptoms of GERD, No Major Cardiovascular Symptoms or Complaints, No Major Pulmonary Symptoms or Complaints (CHIU secondary to obesity, COPD, SMOKER 1/2 pack a day, presumed decreased FRC, Presumed undiagnosed ERICA) and No History of CVA/TIA Cardiac & Pulmonary Exam Cardiac Exam: Normal S1/S2 Heart Sounds Pulmonary Exam: Clear Bilateral Breath Sounds Implantable Cardiac Device Does patient have a Pacemaker or an ICD?: No Airway Exam Known Difficult Airway: No Mallampati Class: 3 Mouth Opening: Narrow (< 3cm) Thyromental Distance: Less than 3 cm Neck Range of Motion: Limited ROM Neck Circumference: Thick Teeth Condition: Removable Dentures/Plates Upper and Edentulous Airway Comments: Morbid obesity, no neck, limited ROM ASA Classification ASA Score: ASA 3 Emergency Case?: No NPO Status NPO Status: NPO Clears >2 hours, Solids >8 hours Anesthesia Plan Resuscitation Status: Full Code Anesthesia Technique: General Anesthesia Airway Planned: Natural Airway Monitors Used: Standard Monitors
[2021-10-29 09:38] LABS: HCT 28.4 % (36.0-46.0); HGB 7.8 g/dL (11.2-15.7)
[2021-10-29 09:45] VITALS: BMI 42.5
[2021-10-29] MEDS: Lactated Ringers 1,000 ML 80 ML IV (10:23)
--- NOTE | 2021-10-29 10:35 | STOM_PTH ---
PATIENT: Anabelle Lindo I LOC: [facility] U#:[id number] AGE/SX: 60/F ROOM: RE10/29/[address]: Stephanie Espinoza : 1960 BED: DIS: 10/29/2021 SPEC #: [id number] RECD: 10/29/21 13:02 STATUS: SHANNAN RE #: [id number] JULIENNE: 10/29/21 10:[address]: Stephanie Espinoza DEPT: Surgical Specimen RECD BY: Karina Wall ENTERED: 10/29/21 13:04 SP TYPE: STOMACH OTHR DR: Colten Grover Tissues: 1 - BIOPSY BOWEL 2 - STOMACH BIOPSY 3 - ESOPHAGUS BIOPSY 4 - BIOPSY BOWEL Procedures: GROSS AND MICRO LEVEL 4 Comments: [id number]
[2021-10-29] MEDS: Bupivacaine 0.5% Pres-Free W/EPI 10 ML VIAL (11:01)
--- NOTE | 2021-10-29 11:16 | W.ANESPOSTOP ---
Postoperative Evaluation Date, Time and Location Date Performed: 10/29/21 Time Performed: 11:16 Patient Location: Day Surgery Unit Vital Signs Most Recent Imported Vital Signs: Most Recent Vital Signs Temp Pulse Resp BP Pulse Ox 36.6 C 83 16 121/84 99 10/29/21 09:05 10/29/21 09:05 10/29/21 09:05 10/29/21 09:05 10/29/21 09:05 Assessment Mental Status: Awake (Alert & Oriented to Patient Baseline) Airway and Respiratory Function: Patent airway with normal (patient baseline) respiratory exam Cardiovascular Function: Hemodynamically Stable Hydration Status: Adequately Hydrated Nausea & Vomiting: No Nausea or Vomiting Pain: Pt. Denies Any Pain Peripheral Nerve Block: Patient did not receive a nerve block
[2021-10-29 11:20] VITALS: BP 133/87; PULSE 77; RESP 16; TEMP 36.3; O2SAT 97
[2021-10-29] MEDS: IRON SUCROSE COMPLEX 200 MG in Normal Saline 100 ML 440 MG IVPB (11:40)
[2021-10-29 11:49] VITALS: BP 126/75; PULSE 69; RESP 16; TEMP 36.3; O2SAT 99
--- NOTE | 2021-10-29 12:01 | PDOC.DSDIS_ITS ---
Discharge Plan Disposition Patient Disposition: HOME Condition: Good Discharge Details Reason For Visit: colon scope Attending Provider: Stephanie Espinoza Primary Care Provider: Colten Grover Home Meds and New Rx's Prescriptions: New dibucaine 1 % ointment 1 applic VA QID PRNQty: 56 6RF polyethylene glycol 3350 [Laxative PEG 3350] 17 gram/dose powder 17 g PO DAILY Qty: 238 12RF Rx Instructions: may take a second dose at bedtime. Avoid straining/pushing to move bowels. Continued propranolol 80 mg capsule,extended release 24 hr 80 mg PO DAILY Qty: 90 4RF fwuoxxmbjs-kvbzrkubkwtgd-qpih 50-325-40 mg capsule 1 cap PO Q6H PRN ferrous sulfate 325 mg (65 mg iron) tablet,delayed release (DR/EC) 325 mg PO DAILY gabapentin 600 mg tablet 600 mg PO TID furosemide 20 mg tablet 20 mg PO QAM amitriptyline 25 mg tablet 25 mg PO QHS atorvastatin 40 mg tablet 40 mg PO DAILY multivitamin [Daily Multi-Vitamin] 1 EACH tablet 1 ea PO DAILY bupropion HCl (smoking deter) 150 MG tablet extended release 12 hr 150 mg PO DAILY AM Qty: 60 desvenlafaxine succinate [Pristiq] 100 MG tablet extended release 24 hr 100 mg PO DAILY Qty: 30 Probiotic 1 EACH capsule 1 ea PO AC Qty: 90 nystatin 100,000 unit/gram powder 1 applic Topical BID PRN (Reason: intertrigo) Qty: 60 4RF lisinopril 10 mg tablet 10 mg PO DAILY naloxone [Narcan] 4 mg/actuation spray,non-aerosol 1 spray intranasal Q2M PRN Rx Instructions: spray 1 dose into ONE nostril; alternate nostrils w each dose until help arrives diazepam [Valium] 10 MG tablet 10 units PO HS omeprazole 40 mg capsule,delayed release(DR/EC) 40 cap PO DAILY alprazolam 0.5 mg tablet 0.5 tab PO DAILY PRN Label Comments: TAKE 1 TABLET BY MOUTH ONCE DAILY NEEDED FOR ANXIETY/PANIC tramadol 50 mg tablet 50 mg PO TID PRN (Reason: pain) Qty: 10 0RF Discontinued bisacodyl [Dulcolax (bisacodyl)] 5 mg tablet,delayed release (DR/EC) 5 mg PO ONCE Qty: 4 0RF Rx Instructions: Take according to provider's instructions for colonoscopy prep. polyethylene glycol 3350 17 gram/dose powder 17 g PO ONCE Qty: 238 0RF Rx Instructions: To be taken as directed by prescriber's office for colonoscopy prep. Discharge Instructions Additional Instructions: Post-Procedure Do's & Don'ts Do?s: ? Take fiber supplements to avoid constipation ? Squeeze your buttocks muscles 10-15 times every two hours ? Take 10-15 deep breaths every 1-2 hours ? Drink plenty of water ? Engage in moderate exercise ? Take a sitz bath ? soaking in a tub of warm water ? after every bowel movement and when you feel pain in the rectal area. Take tylenol 1000mg every 8hrs for pain x1 week. Miralax daily to avoid constipation. You can take Miralax twice a day. Iron can make you very constipated. Avoid straining /pushing to move bowels. This will cause the hemorrhoids to com e back! Don?ts: ? Stay seated for more than 2-3 hours ? Rub or scrub the anus too vigorously ? Try to force a bowel movement ? if you cannot go, stop and try again later ? Insert anything into the anus for two weeks ? unless you have been prescribed anorectal medication ? Avoid alcohol, as it can dehydrate you and lead to constipation Occasionally, you may experience bleeding after the hemorrhoid banding procedure. Do not be concerned if there is a minimal amount of blood. However, if bleeding continues, lie flat with your bottom higher than your head and apply an ice pack to the area. If the bleeding does not stop within a half-hour, call our office or go to the emergency room. Bleeding complications are uncommon and occur <1% of the time. F/u in office in 3-4 wks Will check blood count at that time Activity:: see sbove Diet:: As Tolerated Discharge Orders Discharge Orders: Discharge Order (Routine); Ordered 10/28/21 Ordered By: Stephanie Espinoza
--- NOTE | 2021-10-29 12:16 | PDOC.DSDIS_ITS ---
Discharge Plan Disposition Patient Disposition: HOME Condition: Good Discharge Details Reason For Visit: colon scope Attending Provider: Stephanie Espinoza Primary Care Provider: Colten Grover Home Meds and New Rx's Prescriptions: New dibucaine 1 % ointment 1 applic [place] QID PRNQty: 56 6RF Continued propranolol 80 mg capsule,extended release 24 hr 80 mg PO DAILY Qty: 90 4RF [id number]-ngifkphwmurjn-pxmz 50-325-40 mg capsule 1 cap PO Q6H PRN ferrous sulfate 325 mg (65 mg iron) tablet,delayed release (DR/EC) 325 mg PO DAILY gabapentin 600 mg tablet 600 mg PO TID furosemide 20 mg tablet 20 mg PO QAM amitriptyline 25 mg tablet 25 mg PO QHS atorvastatin 40 mg tablet 40 mg PO DAILY multivitamin [Daily Multi-Vitamin] 1 EACH tablet 1 ea PO DAILY bupropion HCl (smoking deter) 150 MG tablet extended release 12 hr 150 mg PO DAILY AM Qty: 60 desvenlafaxine succinate [Pristiq] 100 MG tablet extended release 24 hr 100 mg PO DAILY Qty: 30 Probiotic 1 EACH capsule 1 ea PO AC Qty: 90 nystatin 100,000 unit/gram powder 1 applic Topical BID PRN (Reason: intertrigo) Qty: 60 4RF lisinopril 10 mg tablet 10 mg PO DAILY naloxone [Narcan] 4 mg/actuation spray,non-aerosol 1 spray intranasal Q2M PRN Rx Instructions: spray 1 dose into ONE nostril; alternate nostrils w each dose until help arrives diazepam [Valium] 10 MG tablet 10 units PO HS omeprazole 40 mg capsule,delayed release(DR/EC) 40 cap PO DAILY alprazolam 0.5 mg tablet 0.5 tab PO DAILY PRN Label Comments: TAKE 1 TABLET BY MOUTH ONCE DAILY NEEDED FOR ANXIETY/PANIC tramadol 50 mg tablet 50 mg PO TID PRN (Reason: pain) Qty: 10 0RF Discontinued bisacodyl [Dulcolax (bisacodyl)] 5 mg tablet,delayed release (DR/EC) 5 mg PO ONCE Qty: 4 0RF Rx Instructions: Take according to provider's instructions for colonoscopy prep. polyethylene glycol 3350 17 gram/dose powder 17 g PO ONCE Qty: 238 0RF Rx Instructions: To be taken as directed by prescriber's office for colonoscopy prep. Discharge Instructions Additional Instructions: Post-Procedure Do's & Don'ts Do?s: ? Take fiber supplements to avoid constipation ? Squeeze your buttocks muscles 10-15 times every two hours ? Take 10-15 deep breaths every 1-2 hours ? Drink plenty of water ? Engage in moderate exercise ? Take a sitz bath ? soaking in a tub of warm water ? after every bowel movement and when you feel pain in the rectal area. Take tylenol 1000mg every 8hrs for pain x1 week. Miralax daily to avoid constipation. You can take Miralax twice a day. Iron can make you very constipated. Avoid straining /pushing to move bowels. This will cause the hemorrhoids to come back! Don?ts: ? Stay seated for more than 2-3 hours ? Rub or scrub the anus too vigorously ? Try to force a bowel movement ? if you cannot go, stop and try again later ? Insert anything into the anus for two weeks ? unless you have been prescribed anorectal medication ? Avoid alcohol, as it can dehydrate you and lead to constipation Occasionally, you may experience bleeding after the hemorrhoid banding procedure. Do not be concerned if there is a minimal amount of blood. However, if bleeding continues, lie flat with your bottom higher than your head and apply an ice pack to the area. If the bleeding does not stop within a half-hour, call our office or go to the emergency room. Bleeding complications are uncommon and occur <1% of the time. F/u in office in 3-4 wks Will check blood count at that time Activity:: see sbove Diet:: As Tolerated Discharge Orders Discharge Orders: Discharge Order (Routine); Ordered 10/28/21 Ordered By: Stephanie Espinoza
== END 2021-10-29 12:28 | disposition home or self-care (01) ==
PROVIDERS: Nurse Anesthetist, Certified Registered; PCP Physician Assistant; Visit Provider Surgery
PROC: (CPT 45378; principal; 2021-10-29 09:00)
DX: K62.5 Hemorrhage of anus and rectum (principal); K57.30 Diverticulosis of large intestine without perforation or abscess without bleeding; K64.1 Second degree hemorrhoids; K52.9 Noninfective gastroenteritis and colitis, unspecified; K29.70 Gastritis, unspecified, without bleeding; K20.80 Other esophagitis without bleeding; D64.9 Anemia, unspecified; I10 Essential (primary) hypertension; E66.01 Morbid (severe) obesity due to excess calories; Z68.41 Body mass index [BMI] 40.0-44.9, adult; K22.89 Other specified disease of esophagus; K31.89 Other diseases of stomach and duodenum; K63.89 Other specified diseases of intestine
CPT/HCPCS: 45378; 46221; 43239; 36415; 88305; 96365; 85014; 85018; J1756; J2250

== ENCOUNTER → 2021-11-14 01:50 | Outpatient (CLI) | payer MEDICARE, MEDICAID, SELFPAY ==
--- NOTE | 2021-11-14 | DI.RAD_ITS ---
Exam(s) XR CHEST 2V PA LATERAL EXAM: XR CHEST 2V PA LATERAL CLINICAL HISTORY: COUGH, R05.8 TECHNIQUE: 2D digital imaging was performed of the chest. Two images were obtained. PA and lateral views were obtained. COMPARISON: CR ABD FLAT UPRIGHT PA CHEST from 10/20/2012 FINDINGS: MEDIASTINUM: Normal. HEART: Normal. PULMONARY VASCULATURE: Normal. LUNGS: Clear. PLEURAL SPACE: No pleural effusion or pneumothorax. BONE:Within normal limits for the patient's age. OTHER FINDINGS:Normal. IMPRESSION: No acute pulmonary findings. DATA REPOSITORY: RADIATION DOSE DELIVERED:
== END ==
PROVIDERS: PCP Physician Assistant; Visit Provider Physician Assistant
DX: R05.9 Cough, unspecified (principal)
CPT/HCPCS: 71046

== ENCOUNTER 2021-11-18 02:06 | Outpatient (CLI) | payer MEDICARE, MEDICAID, SELFPAY ==
[2021-11-18 13:08] LABS: Abs Immature Grans 0.02 10^3/uL (0.0-0.06); Absolute Basophil Count 0.07 10^3/uL (0.0-0.2); Absolute Lymphocyte Count 1.25 10^3/uL (1.2-3.4); Absolute Monocyte Count 0.36 10^3/uL (0.1-0.8); Absolute Neutrophil Count 3.78 10^3/uL (1.2-6.7); Basophils % 1.2; Eosinophils % 3.5; HCT 29.4 % (36.0-46.0); HGB 8.1 g/dL (11.2-15.7); Immature Grans % 0.4; MCH 20.7 pg (27.0-33.0); MCHC 27.6 % (32.0-36.0); MCV 75 fL (80-95); MPV 7.6 fL (8.0-11.0); Monocytes % 6.3; Neutrophils % 66.6; Platelet Count 244 10^3/uL (130-400); RBC 3.92 10^6/uL (3.93-5.22); RDW 20.4 % (11.7-14.6); RDW-SD 54.5 fL; WBC 5.68 10^3/uL (4.4-10.8)
[2021-11-18 13:32] LABS: Anisocytosis 1+; Diff Comment RBC Morph Reviewed; Hypochromasia 1+
[2021-11-18 14:33] LABS: Iron 26 ug/dL (50-170); Total Iron Binding Capacity 370 ug/dL (250-450); Transferrin Sat 7 % (15-50)
[2021-11-18 14:47] LABS: Ferritin 11 ng/mL (8-252)
== END 2021-11-18 02:07 | disposition home or self-care (01) ==
LOC: LBO 02:06
PROVIDERS: PCP Physician Assistant; Visit Provider Surgery
DX: D50.0 Iron deficiency anemia secondary to blood loss (chronic) (principal); K62.5 Hemorrhage of anus and rectum; K52.9 Noninfective gastroenteritis and colitis, unspecified; K57.30 Diverticulosis of large intestine without perforation or abscess without bleeding; K64.8 Other hemorrhoids
CPT/HCPCS: 36415; 82728; 83540; 83550; 85025

== ENCOUNTER → 2021-11-21 13:18 | Outpatient (BNVA) | payer MEDICARE, MEDICAID, SELFPAY | PROVIDERS: PCP Physician Assistant; Referring Provider Physician Assistant; Visit Provider Physical Therapy Assistant | DX: Z48.89 Encounter for other specified surgical aftercare (principal); D12.6 Benign neoplasm of colon, unspecified ==

== ENCOUNTER 2021-12-19 02:57 | Outpatient (RCR) | payer MEDICARE, MEDICAID, SELFPAY ==
[2021-12-12] MEDS: Normal Saline Flush 10 ML SYR IVP (11:24)
[2021-12-12] MEDS: IRON SUCROSE COMPLEX 200 MG in Normal Saline 100 ML 440 MG IVPB (11:29)
[2021-12-19] MEDS: Normal Saline Flush 10 ML SYR IVP (11:07)
[2021-12-19] MEDS: IRON SUCROSE COMPLEX 200 MG in Normal Saline 100 ML 440 MG IVPB (11:09)
== END 2022-01-01 23:59 | disposition home or self-care (01) ==
LOC: INF 02:57
PROVIDERS: PCP Physician Assistant; Visit Provider Surgery
DX: D64.9 Anemia, unspecified (principal)
CPT/HCPCS: 96365; J1756

== ENCOUNTER → 2021-12-23 12:56 | Outpatient (BNVA) | payer MEDICARE, MEDICAID, SELFPAY | PROVIDERS: PCP Physician Assistant; Referring Provider Physician Assistant; Visit Provider Surgery | DX: K27.9 Peptic ulcer, site unspecified, unspecified as acute or chronic, without hemorrhage or perforation (principal); K64.8 Other hemorrhoids; K57.30 Diverticulosis of large intestine without perforation or abscess without bleeding; K52.9 Noninfective gastroenteritis and colitis, unspecified; K21.9 Gastro-esophageal reflux disease without esophagitis; K57.92 Diverticulitis of intestine, part unspecified, without perforation or abscess without bleeding; D50.0 Iron deficiency anemia secondary to blood loss (chronic); E66.01 Morbid (severe) obesity due to excess calories; G89.4 Chronic pain syndrome | CPT/HCPCS: 36415; 99213 ==

== ENCOUNTER 2021-12-23 13:21 | Outpatient (REF) | payer MEDICARE, MEDICAID, SELFPAY | END 2021-12-23 13:22 | disposition home or self-care (01) | LOC: LBN 13:21 | PROVIDERS: PCP Physician Assistant; Visit Provider Surgery | DX: D50.0 Iron deficiency anemia secondary to blood loss (chronic) (principal); K57.30 Diverticulosis of large intestine without perforation or abscess without bleeding; E66.01 Morbid (severe) obesity due to excess calories; F41.9 Anxiety disorder, unspecified; F60.3 Borderline personality disorder | CPT/HCPCS: 82728; 83540; 83550; 85025 ==

== ENCOUNTER 2022-01-07 02:09 | Outpatient (CLI) | payer MEDICARE, MEDICAID, SELFPAY ==
[2021-12-23 13:47] LABS: Abs Immature Grans 0.02 10^3/uL (0.0-0.06); Absolute Basophil Count 0.03 10^3/uL (0.0-0.2); Absolute Eosinophil Count 0.16 10^3/uL (0.0-0.7); Absolute Lymphocyte Count 1.23 10^3/uL (1.2-3.4); Absolute Monocyte Count 0.43 10^3/uL (0.1-0.8); Absolute Neutrophil Count 3.72 10^3/uL (1.2-6.7); Basophils % 0.5; Eosinophils % 2.9; HGB 9.7 g/dL (11.2-15.7); Immature Grans % 0.4; MCH 21.3 pg (27.0-33.0); MCHC 27.7 % (32.0-36.0); MCV 77 fL (80-95); MPV 7.8 fL (8.0-11.0); Monocytes % 7.7; Neutrophils % 66.5; Platelet Count 274 10^3/uL (130-400); RBC 4.55 10^6/uL (3.93-5.22); RDW 23.3 % (11.7-14.6); RDW-SD 60.9 fL; WBC 5.59 10^3/uL (4.4-10.8)
[2021-12-23 14:04] LABS: Anisocytosis 3+; Diff Comment Diff Reviewed; Hypochromasia 2+; Polychromasia Present
[2021-12-23 14:05] LABS: Poikilocytes 2+
[2021-12-23 14:08] LABS: Ferritin 100 ng/mL (8-252)
[2021-12-23 14:18] LABS: Iron 32 ug/dL (50-170); Total Iron Binding Capacity 371 ug/dL (250-450); Transferrin Sat 9 % (15-50)
[2022-01-07 14:08] LABS: Abs Immature Grans 0.02 10^3/uL (0.0-0.06); Absolute Basophil Count 0.06 10^3/uL (0.0-0.2); Absolute Eosinophil Count 0.19 10^3/uL (0.0-0.7); Absolute Lymphocyte Count 1.63 10^3/uL (1.2-3.4); Absolute Neutrophil Count 3.85 10^3/uL (1.2-6.7); Eosinophils % 3.1; HCT 36.1 % (36.0-46.0); HGB 10.2 g/dL (11.2-15.7); Immature Grans % 0.3; Lymphocytes % 26.5; MCH 21.9 pg (27.0-33.0); MCHC 28.3 % (32.0-36.0); MCV 78 fL (80-95); MPV 7.4 fL (8.0-11.0); Monocytes % 6.5; Neutrophils % 62.6; Platelet Count 242 10^3/uL (130-400); RBC 4.66 10^6/uL (3.93-5.22); RDW 21.5 % (11.7-14.6); WBC 6.15 10^3/uL (4.4-10.8)
[2022-01-07 14:25] LABS: Anisocytosis 2+; Diff Comment RBC Morph Reviewed; Hypochromasia 1+
[2022-01-07 15:54] LABS: Iron 30 ug/dL (50-170); Total Iron Binding Capacity 356 ug/dL (250-450); Transferrin Sat 8 % (15-50)
== END 2022-01-07 02:10 | disposition home or self-care (01) ==
LOC: LBO 02:11
PROVIDERS: Physical Therapy Assistant; PCP Physician Assistant; Visit Provider Surgery
DX: D50.0 Iron deficiency anemia secondary to blood loss (chronic) (principal); E66.01 Morbid (severe) obesity due to excess calories; F41.9 Anxiety disorder, unspecified; K57.30 Diverticulosis of large intestine without perforation or abscess without bleeding; K64.8 Other hemorrhoids; D12.6 Benign neoplasm of colon, unspecified; Z48.89 Encounter for other specified surgical aftercare
CPT/HCPCS: 36415; 83540; 83550; 85025

== ENCOUNTER → 2022-01-09 09:37 | Outpatient (BNVA) | payer MEDICARE, MEDICAID, SELFPAY | PROVIDERS: PCP Physician Assistant; Referring Provider Physician Assistant; Visit Provider Student in an Organized Health Care Education/Training Program | DX: R60.0 Localized edema (principal); R29.6 Repeated falls; G56.22 Lesion of ulnar nerve, left upper limb; M23.92 Unspecified internal derangement of left knee | CPT/HCPCS: 99214 ==

== ENCOUNTER → 2022-01-14 09:45 | Outpatient (BNVA) | payer MEDICARE, MEDICAID, SELFPAY | PROVIDERS: PCP Physician Assistant; Referring Provider Student in an Organized Health Care Education/Training Program; Visit Provider Nurse Practitioner Adult Health | DX: G56.02 Carpal tunnel syndrome, left upper limb (principal); G56.22 Lesion of ulnar nerve, left upper limb | CPT/HCPCS: 95909; 99203; 99214 ==

== ENCOUNTER → 2022-01-20 13:19 | Outpatient (BNVA) | payer MEDICARE, MEDICAID, SELFPAY | PROVIDERS: PCP Physician Assistant; Referring Provider Physician Assistant; Visit Provider Surgery | DX: K21.9 Gastro-esophageal reflux disease without esophagitis (principal); D50.0 Iron deficiency anemia secondary to blood loss (chronic); K64.8 Other hemorrhoids; K57.30 Diverticulosis of large intestine without perforation or abscess without bleeding; K57.92 Diverticulitis of intestine, part unspecified, without perforation or abscess without bleeding | CPT/HCPCS: 99212; 99213 ==

== ENCOUNTER → 2022-04-07 14:04 | Outpatient (BNVA) | payer MEDICARE, MEDICAID, SELFPAY | PROVIDERS: PCP Physician Assistant; Referring Provider Physician Assistant; Visit Provider Student in an Organized Health Care Education/Training Program | DX: G56.02 Carpal tunnel syndrome, left upper limb (principal); G56.22 Lesion of ulnar nerve, left upper limb | CPT/HCPCS: 99213 ==

== ENCOUNTER 2022-04-29 07:09 | Day surgery (SDC) | payer MEDICARE, MEDICAID, SELFPAY ==
--- NOTE | 2022-04-29 07:36 | W.PM.DSUDISC ---
Date of service: 04/29/22 Time of Service: 07:41 Discharge Plan Disposition Patient Disposition: Home Condition: Good Discharge Details Attending Provider: Eduar Obregon Primary Care Provider: Colten Grover Home Meds and New Rx's Prescriptions: New hydrocodone-acetaminophen 5-325 mg tablet 1 tab PO Q4H PRN (Reason: pain) Qty: 12 0RF acetaminophen 500 mg tablet 500 mg PO Q6H PRN PRN (Reason: pain) Qty: 60 3RF Continued propranolol 80 mg capsule,extended release 24 hr 80 mg PO DAILY Qty: 90 4RF pantoprazole [Protonix] 40 mg tablet,delayed release (DR/EC) 40 mg PO DAILY Qty: 30 12RF cffiposfdm-dgzmwwwyfsteo-gqlr 50-325-40 mg capsule 1 cap PO Q6H PRN atorvastatin 40 mg tablet 40 mg PO DAILY multivitamin [Daily Multi-Vitamin] 1 EACH tablet 1 ea PO DAILY desvenlafaxine succinate [Pristiq] 100 MG tablet extended release 24 hr 100 mg PO DAILY Qty: 30 nystatin 100,000 unit/gram powder 1 applic Topical BID PRN (Reason: intertrigo) Qty: 60 4RF naloxone [Narcan] 4 mg/actuation spray,non-aerosol 1 spray intranasal Q2M PRN Rx Instructions: spray 1 dose into ONE nostril; alternate nostrils w each dose until help arrives dibucaine 1 % ointment 1 applic NE QID PRN (Reason: hemorrhoids) Qty: 56 5RF gabapentin 600 mg tablet 300 mg PO TID Changed celecoxib 200 mg capsule 200 mg PO BID Qty: 60 1RF Discontinued amitriptyline 25 mg tablet 25 mg PO QHS Label Comments: 04/23/22 report stopped taking 2 weeks ago bupropion HCl (smoking deter) 150 MG tablet extended release 12 hr 150 mg PO DAILY AM Qty: 60 Label Comments: 04/23/22 report stopped taking 2 weeks ago. PCP unaware alprazolam 0.5 mg tablet 0.5 tab PO DAILY PRN Label Comments: TAKE 1 TABLET BY MOUTH ONCE DAILY NEEDED FOR ANXIETY/PANIC. 04/23/22 report stopped taking 2 weeks ago Discharge Instructions Additional Instructions: Cubital Tunnel Decompression Discharge Instructions Activity: You should stay in the sling for the first 2 weeks. You may come out of the sling for gentle motion and hygiene but should largely remain in the sling to allow the incision site to heal. Gentle motion of the elbow, hand, wrist, and fingers is okay and encouraged after the first few days, but no repetitive activites nor heavy lifting. You may apply ice. Medications: - You should take Tylenol and Celebrex around the clock as prescribed. - You have been prescribed Hydrocodone for breakthrough pain. Dressings: - The initial surgical dressing should stay in place for 3 days. It may then be removed and kept clean and dry. You should cover with a light gauze dressing. - You may shower after 3 days and get the wound wet. Follow-up: 10 days Stand Alone Forms: [place] T[place] Release Referrals: Eduar Obregon MD [ [facility] STAFF PHYSICIAN] - Equipment/Supplies: Sling Activity:: Sling for comfort Remove Dressings/Wound Care:: 72 hours Shower/Bathe:: 72 hours Diet:: As Tolerated Discharge Orders Discharge Orders: Discharge Order (Routine); Ordered 04/29/22 Ordered By: Stephanie Sanders
== END 2022-04-29 07:10 | disposition home or self-care (01) ==
PROVIDERS: PCP Physician Assistant; Visit Provider Student in an Organized Health Care Education/Training Program
DX: G56.01 Carpal tunnel syndrome, right upper limb (principal); G56.21 Lesion of ulnar nerve, right upper limb; Z53.9 Procedure and treatment not carried out, unspecified reason

== ENCOUNTER 2022-05-14 15:57 | Outpatient (CLI) | payer MEDICARE, MEDICAID, SELFPAY ==
--- NOTE | 2022-05-14 | DI.RAD_ITS ---
Exam(s) XR CHEST 2V PA LATERAL EXAM: XR CHEST 2V PA LATERALz CLINICAL HISTORY: COUGH--R05.8 TECHNIQUE: 2D digital imaging was performed. COMPARISON: CR CHEST 2 VIEWS PA,LAT from 04/21/2011 CT HEAD WITHOUT CONTRAST from 05/22/2011 CT ABD PELVIS WITH CONTRAST from 02/03/[address] ABDOMEN PELVIS WO from 10/15/2021 CR XR CHEST 2V PA LATERAL from 11/14/2021 FINDINGS: HEART: Normal size. Aorta: Not dilated. PULMONARY VASCULATURE: Normal. LUNGS: Clear. PLEURAL SPACE: No pleural effusion or pneumothorax. BONE:Prominent osteophytes at the T8 and T9 costovertebral junctions bilaterally with adjacent cortic al thickening of the ribs. Findings appear stable open compared with CT from 2013. IMPRESSION: No acute abnormality. DATA REPOSITORY: RADIATION DOSE DELIVERED:
== END 2022-05-14 16:17 ==
PROVIDERS: PCP Physician Assistant; Visit Provider Physician Assistant Medical
DX: R05.8 Other specified cough (principal)
CPT/HCPCS: 71046

== ENCOUNTER 2022-05-24 16:48 | Emergency (ER) | payer MEDICARE, MEDICAID, SELFPAY ==
[2022-05-24] VITALS (9 sets, daily range): BP systolic 115–159; BP diastolic 73–82; PULSE 79–98; RESP 17–24; TEMP 37.1; O2SAT 96–98
--- NOTE | 2022-05-24 16:45 | RT.EKG_ITS ---
APPROVED REPORT Exam: Resting ECG Reason for Exam: chest pain Patient Location: E HR:84 bpm ECG Measurements Heart Rate 84 AXIS AR 175 P 52 QRSd 140 QRS 54 QT 374 T 14 QTc 443 Conclusion Sinus rhythm...normal P axis, V-rate 60- 99 Right bundle branch block...QRSd>120, terminal axis(90,270)
[2022-05-24 17:13] LABS: Abs Immature Grans 0.03 10^3/uL (0.0-0.06); Absolute Basophil Count 0.06 10^3/uL (0.0-0.2); Absolute Eosinophil Count 0.23 10^3/uL (0.0-0.7); Absolute Lymphocyte Count 2.36 10^3/uL (1.2-3.4); Basophils % 0.8; Eosinophils % 2.9; HCT 37.1 % (36.0-46.0); HGB 10.4 g/dL (11.2-15.7); Immature Grans % 0.4; Lymphocytes % 29.9; MCH 22.3 pg (27.0-33.0); MCV 80 fL (80-95); MPV 8.4 fL (8.0-11.0); Monocytes % 8.9; Neutrophils % 57.1; Platelet Count 321 10^3/uL (130-400); RBC 4.66 10^6/uL (3.93-5.22); RDW 17.3 % (11.7-14.6); RDW-SD 49.5 fL; WBC 7.88 10^3/uL (4.4-10.8)
[2022-05-24] MEDS: Prochlorperazine 10 MG/2 ML VIAL IVP (17:15)
--- NOTE | 2022-05-24 17:17 | ED.GENADUL_ITS ---
Discharge Plan Disposition Patient Disposition: Eloped Condition: Serious Discharge Details Chief Complaint: Chest Pain Clinical Impression: Chest pain, Headache Primary Care Provider: Colten Grover ED Provider: Louis Montoya Marshall Meds and New Rx's Prescriptions: No Action propranolol 80 mg capsule,extended release 24 hr 80 mg PO DAILY Qty: 90 4RF pantoprazole [Protonix] 40 mg tablet,delayed release (DR/EC) 40 mg PO DAILY Qty: 30 12RF betamethasone dipropionate 0.05 % cream 1 applic topical BID PRN Rx Instructions: to the elbows until dry skin is resolved potassium chloride 20 mEq tablet extended release 20 meq PO DAILY atorvastatin 40 mg tablet 40 mg PO DAILY desvenlafaxine succinate [Pristiq] 100 MG tablet extended release 24 hr 100 mg PO DAILY Qty: 30 nystatin 100,000 unit/gram powder 1 applic Topical BID PRN (Reason: intertrigo) Qty: 60 4RF dibucaine 1 % ointment 1 applic OR QID PRN (Reason: hemorrhoids) Qty: 56 5RF gabapentin 600 mg tablet 900 mg PO TID codeine-guaifenesin 10-100 mg/5 mL liquid 5 - 10 ml PO Q4H furosemide 40 mg tablet 20 mg PO DAILY PRN (Reason: edema) fsgnncyvhn-btdtbeifotwwe-iiua 50-325-40 mg capsule 1 cap PO BID PRN Rx Instructions: take one capsule by mouth BID prn. Do not take more than 3 days per week. acetaminophen 500 mg tablet 500 mg PO Q6H PRN PRN (Reason: pain) Qty: 60 3RF Medical Decision Making 61 yo female with hx of migraines, gerd, prior substance abuse, chronic pain syndrome, who comes in with primary complaint of chest pain for a day. She states she has had anterior chest achiness that radiates to the upper back and can't think of anything that makes it better or worse though denies pain with exertion, diaphoresis, n/v, dyspnea. She has no fevers/chills. She also states she has had a headache for 2-3 hours that feels similar to her prior migraines and has had some blurred vision which she occasionally gets, no visual changes currently. She arrives stable speaking clearly in no distress. She has no focal motor or sensation deficits, cn ii-xii intact, nih of 0. She has clear lungs, no murmurs, soft nontender abdomen, no calf tenderness or leg swelling. Suspect her head pain is due to migraine but given it has only been occurring less then [address] to evaluate for possible hemorrhage. No fevers and no meningismus so doubt care transition manager infection. Will obtain ecg/troponin and given radiation of pain to the back will obtain cta of the chest to evaluate for dissection pt advised she did not want to stay and I advised if she left it would be against medical advise as I am concerned for potential etiologies such as acs, dissection among other pathologies and these could potentially kill her or leave her permanently disabled if delayed in diagnosis. She understood these risks and had clinical decision making capacity. She initially chose to stay but then eloped before I could speak with her again, she was advised she can return at any time if she changes her mind prior to this and she should follow up with her pcp messi Differential Diagnosis Differential Diagnosis: migraine, nstemi, dissection Lab Data Lab results reviewed: Yes I reviewed the patient's lab results. ECG Data Attestation: I personally reviewed and interpreted this ECG (s) as follows: Prior ECG tracings: not available for review Interpretation: normal sinus rhyhtm, rate of 84, pr 175, no stemi HPI General Mode of arrival: ambulatory . Date/Time Provider Initiated Documentation: 05/24/22 16:58 . Limitations to Documentation: no limitations . Information obtained by: patient . History of Present Illness 61 year old F presents to the emergency department with the chief complaint of chest pain, described as moderate, Quality is described as aching, and is localized to the chest. Patient started experiencing this day(s) (1) and it has been constant. No relieving factors improve symptom(s), No exacerbating factors reported . Patient notes other (headaches). Patient did receive the following treatments prior to arrival, none Related Data Home Medications Medication Instructions Recorded Confirmed desvenlafaxine succinate 100 mg 100 mg PO DAILY #30 tabs 05/05/14 05/24/22 tablet,extended release 24 hr (Pristiq) propranolol 80 mg capsule,24 80 mg PO DAILY migraine 08/16/19 05/24/22 hr,extended release prophylaxis #90 caps nystatin 100,000 unit/gram topical 1 applic topical BID PRN 04/17/20 05/24/22 powder intertrigo #60 grams atorvastatin 40 mg tablet 40 mg PO DAILY 10/17/21 05/24/22 dibucaine 1 % rectal ointment 1 applic OR QID PRN hemorrhoids 10/31/21 05/24/22 #56 grams pantoprazole 40 mg tablet,delayed 40 mg PO DAILY #30 tabs 12/23/21 05/24/22 release (Protonix) acetaminophen 500 mg tablet 500 mg PO Q6H PRN PRN pain #60 tabs 04/29/22 05/24/22 betamethasone dipropionate 0.05 % 1 applic topical BID PRN 05/19/22 05/24/22 topical cream gabapentin 600 mg tablet 900 mg PO TID 05/19/22 05/24/22 potassium chloride 20 mEq 20 meq PO DAILY 05/19/22 05/24/22 tablet,extended release rmxtraziie-evdnxgiihtigt-drchqjqw 1 cap PO BID PRN 05/21/22 05/24/22 50 mg-325 mg-40 mg capsule codeine 10 mg-guaifenesin 100 mg/5 5 - 10 ml PO Q4H 05/21/22 05/24/22 mL oral liquid furosemide 40 mg tablet 20 mg PO DAILY PRN edema 05/21/22 05/24/22 Previous Rx's Medication Instructions Recorded propranolol 80 mg capsule,24 80 mg PO DAILY migraine 08/16/19 hr,extended release prophylaxis #90 caps nystatin 100,000 unit/gram topical 1 applic topical BID PRN 04/17/20 powder intertrigo #60 grams dibucaine 1 % rectal ointment 1 applic OR QID PRN hemorrhoids 10/31/21 #56 grams pantoprazole 40 mg tablet,delayed 40 mg PO DAILY #30 tabs 12/23/21 release (Protonix) acetaminophen 500 mg tablet 500 mg PO Q6H PRN PRN pain #60 tabs 04/29/22 Allergies Allergy/AdvReac Type Severity Reaction Status Date / Time pregabalin [From Lyrica] Allergy Intermediate Other (See Unverified 05/24/22 16:56 Comment) prednisone AdvReac Severe GI upset Verified 05/24/22 16:56 topiramate AdvReac Severe Suicical Verified 05/24/22 16:56 ideation celecoxib [From Celebrex] AdvReac Intermediate GI Bleeding Verified 01/21/23 16:56 NSAIDS (Non-Steroidal AdvReac Intermediate blood in Verified 05/24/22 16:56 Anti-Inflamma stool aspirin AdvReac Verified 05/24/22 16:56 General Stated Complaint: Chest Pain RADHA: 2 Review of Systems All systems reviewed & are unremarkable except as noted in HPI and below Constitutional Constitutional: Denies chills, Denies fever(s) and Denies weakness Cardiovascular Cardiovascular: Denies dyspnea Respiratory Respiratory: Denies cough and Denies dyspnea Gastrointestinal Gastrointestinal: Denies abdominal pain, Denies nausea and Denies vomiting Neurologic Neurologic: Denies weakness PFSH All Active Problems (Updated 05/24/22 @ 17:54 by Louis Montoya MD) Chest pain (Acute) Headache (Acute) Intestinal or peritoneal adhesions with obstruction (postoperative) (postinfection) (Chronic 02/03/14) Chronic diarrhea (Chronic 06/12/16) Tubular adenoma of colon (Chronic 04/18/16) Tachycardia (Chronic) Substance abuse (Chronic) Polyp of colon (Chronic) Peptic ulcer (Chronic) Diverticulitis (Chronic 08/27/17) Chronic pain syndrome (Chronic 04/08/12) Morbid obesity (Acute) Gastrointestinal disorder (Acute) Lower extremity edema (Acute) Diverticula of colon (Acute) Internal hemorrhoid, bleeding (Acute) Iron deficiency anemia due to chronic blood loss (Acute) Chronic GERD (Acute) Internal derangement of left knee (Acute) Cubital tunnel syndrome on left (Acute) Left carpal tunnel syndrome (Acute) Medical History (Updated 05/24/22 @ 17:54 by Louis Montoya MD) Acute sore throat Allergic rhinitis Anemia Anxiety disorder Bipolar 1 disorder Borderline personality disorder Candidal intertrigo Carpal tunnel syndrome Chronic back pain Chronic lower back pain Cough Depressive disorder Dysphagia (10/12/08) Eczema Elevated blood sugar Essential hypertension Headache Heel pain History of peptic ulcer Hyperlipidemia Knee pain, left Left cervical radiculopathy Lumbar radiculopathy, right Lymphedema Migraine cerviogenic CHOI & analgesia rebound Optic nerve atrophy Optic nerve atrophy, bilateral Pain in left shoulder Panic attacks Peripheral neuropathy Pes planus Pharyngitis Polypharmacy Postmenopausal state Spinal stenosis of lumbar region (11/11/16) Ulnar neuropathy at wrist Surgical History (Updated 04/23/22 @ 12:20 by Esthela Guerra) Abdominal hysterectomy (~2000) Bilateral salpingectomy with oophorectomy Cholecystectomy (~12/2008) w/ cholangiogram Colonoscopy - MAC (04/18/09) 10/2021 History of esophagogastroduodenoscopy (EGD) Hx of right knee surgery Family History Mother Essential hypertension Uterine cancer Father Bone cancer Sister Cervical cancer Sister No problems noted. Brother , AGE 51 Depression Brother , AGE 57 No problems noted. Brother Essential hypertension Asthma Brother Alcohol abuse Maternal Grandmother , age 86 Skin cancer Paternal Grandmother Cancer Son No problems noted. Daughter Depression Social History Smoking/Tobacco Use Status: Current every day Tobacco Type: cigarettes Years smoked: 40 Smoking risk assessment performed?: Yes Alcohol Intake: never Drug use: Never Substance use type: does not use Duration: > 90 minutes/day Frequency: daily Elvia/Presybeterian: No preference Special elvia needs: No Do you feel safe at home: Yes Do you feel safe in your relationship?: Yes Exam Const General: no acute distress Orientation: alert HENMT Head: normal to inspection Ears: external ears normal General nose exam: external nose normal Mouth: moist mucous membranes Eyes General: appearance normal, both eyes and all related structures Neck Neck: normal visual inspection Resp Effort & Inspection: normal respiratory effort and able to speak in complete sentences Auscultation: clear to auscultation bilaterally Cardio Jugular venous pressure: no JVD Rate: regular rate Heart Sounds: no murmurs GI Palpation: soft and nontender Skin General skin exam: no rashes or lesions noted Neuro General: patient alert and patient oriented x3 Extrem General: normal to inspection Psych Mental Status: mental status grossly normal Course Vital Signs Vital signs: Vital Signs Temperature 37.1 C 05/24/22 16:51 Pulse 98 H 05/24/22 16:51 Respiratory Rate 19 05/24/22 16:51 Blood Pressure 159/82 H 05/24/22 16:51 Pulse Oximetry 98 05/24/22 16:51 Temperature 37.1 C 05/24/22 16:51 Temperature Source Oral 05/24/22 16:51 Pulse 98 H 05/24/22 16:51 Respiratory Rate 20 05/24/22 17:04 Respiratory Effort 05/24/22 17:04 Respiratory Depth Normal 05/24/22 17:04 Respiratory Pattern Normal 05/24/22 17:04 Blood Pressure 159/82 H 05/24/22 16:51 Blood Pressure Position Supine 05/24/22 16:51 Pulse Oximetry 98 05/24/22 16:51 Oxygen Delivery Method Room Air 05/24/22 16:51 Oxygen Flow Rate 0 05/24/22 16:51 Pain Level 7 05/24/22 17:15 Lab/Test Results Lab/Test Results: Laboratory Tests Range/Units 05/24/22 16:56 WBC (4.4-10.8) 10^3/uL 7.88 RBC (3.93-5.22) 10^6/uL 4.66 Hgb (11.2-15.7) g/dL 10.4 L Hct (36.0-46.0) % 37.1 MCV (80-95) fL 80 MCH (27.0-33.0) pg 22.3 L MCHC (32.0-36.0) % 28.0 L RDW (11.7-14.6) % 17.3 H Plt Count (130-400) 10^3/uL 321 MPV (8.0-11.0) fL 8.4 Immature Gran % 0.4 Neutrophils % 57.1 Lymphocytes % 29.9 Monocytes % 8.9 Eosinophils % 2.9 Basophils % 0.8 Nucleated RBC % (0.0-0.3) % 0.0 Absolute Neutrophils (1.2-6.7) 10^3/uL 4.50 Absolute Lymphocytes (1.2-3.4) 10^3/uL 2.36 Absolute Monocytes (0.1-0.8) 10^3/uL 0.70 Absolute Eosinophils (0.0-0.7) 10^3/uL 0.23 Absolute Basophils (0.0-0.2) 10^3/uL 0.06
[2022-05-24 17:24] LABS: INR 0.9 (0.9-1.1); Prothrombin Time 8.9 sec (9.3-11.0)
[2022-05-24 17:27] LABS: PTT Activated 23.9 sec (21.0-27.5)
[2022-05-24 17:31] LABS: ALT 23 U/L (14-59); AST 18 U/L (15-37); Albumin 3.5 g/dL (3.4-5.0); Alkaline Phosphatase 199 U/L (46-116); Anion Gap 4.8 mmol/L (3-11); BUN 13 mg/dL (7-18); Bilirubin, Total 0.2 mg/dL (0.2-1.0); CO2 30.2 mmol/L (21.0-32.0); CREATININE 1.1 mg/dL (0.55-1.02); Chloride 105 mmol/L (98-107); Estimated GFR 57.17 (mL/min/1.73m2); Glucose 102 mg/dL (74-106); Lipase 170 U/L (73-393); Magnesium 2.1 mg/dL (1.8-2.4); Sodium 140 mmol/L (136-145); Total Protein 7.2 g/dL (6.4-8.2); Troponin I < 50 ng/L (<or=60)
== END 2022-05-24 17:43 | disposition left against medical advice (07) ==
PROVIDERS: Emergency Provider Emergency Medicine; PCP Physician Assistant
DX: R07.89 Other chest pain (principal); R51.9 Headache, unspecified; H53.8 Other visual disturbances; I10 Essential (primary) hypertension; M54.6 Pain in thoracic spine
CPT/HCPCS: 80053; 83690; 93005; 96374; 99284; 83735; 84484; 85025; 85610; 85730; 93010; J0780

== ENCOUNTER → 2022-05-26 12:20 | Outpatient (BNVA) | payer MEDICARE, MEDICAID, SELFPAY | PROVIDERS: PCP Physician Assistant; Referring Provider Physician Assistant; Visit Provider Nurse Practitioner Adult Health | DX: F41.8 Other specified anxiety disorders (principal); F31.9 Bipolar disorder, unspecified; F17.210 Nicotine dependence, cigarettes, uncomplicated; Z87.820 Personal history of traumatic brain injury; I10 Essential (primary) hypertension; G43.009 Migraine without aura, not intractable, without status migrainosus | CPT/HCPCS: 99215 ==

== ENCOUNTER 2022-05-27 02:23 | Outpatient (CLI) | payer MEDICARE, MEDICAID, SELFPAY ==
--- NOTE | 2022-05-27 14:58 | DI.CTLCSR_ITS ---
Exam(s) CT CHEST LUNG CANCER SCREEN EXAM: CT CHEST LUNG CANCER SCREEN CLINICAL HISTORY: CIGARETTE SMOKER F17.210. TECHNIQUE: Imaging Protocol: Low Dose Technique CONTRAST MATERIAL: None COMPARISON: CR XR CHEST 2V PA LATERAL from 05/14/2022 FINDINGS: CHEST: LUNGS: There is some benign-appearing pleural thickening lateral aspect of the right lung associated with the minor fissure.c. There are no confluent infiltrates. No ominous pulmonary nodules. No ple ural effusions. No focal findings in the trachea and mainstem bronchi. MEDIASTINUM: There is no obvious hilar nor mediastinal adenopathy. CARDIAC: Heart size is normal. There is no pericardial effusion.Coronary artery calcification noted in the LA he. Caliber thoracic aorta is within normal limits. OTHER: No adrenal masses. No splenomegaly. OSSEOUS: No significant osseous lesions.No acute fractures.. IMPRESSION: 1. Benign-appearing right lung pleural thickening. No ominous pulmonary nodules. No pleural effusio ns. No confluent infiltrates. 2. No obvious intrathoracic adenopathy. 3. Lung RADS Cat 1 - Negative: No nodules and definitely benign nodules Lung-RADS 1.0 CATEGORIES: Category 0 - Prior chest CT exam(s) being located for comparison. Category 1 - Annual screening in 12 months. No nodules or definitely benign nodules. Category 2 - Annual screening in 12 months. Benign appearance. Nodules with low likelihood of becomin g active cancer. Category 3 - 6-month follow-up. Probably benign. Short-term follow-up suggested. Nodules with low lik elihood of becoming active cancer. Category 4A - 3-month follow-up and CT/PET if >8 mm in size. Suspicious finding. Findings which requi re additional testing. Category 4B - Findings which require additional testing and tissue sampling. Category 4X - Category 3 or 4 nodules with additional features or imaging findings that increases the suspicion of malignancy. Modifier S- Potentially clinically significant findings (non lung cancer) RADIATION DOSE DELIVERED: 88.61mGy.cm Total DLP DATA REPOSITORY: All CT scans at this facility are submitted to the National Radiology Data Registry (NRDR) Dose Index Registry (DIR) with the [employer] (A[employer]). RADIATION OPTIMIZATION: All CT scans at this facility use at least one of these dose optimization te chniques: automated exposure control; mA and/or kV adjustment per patient size (includes targeted exa ms where dose is matched to clinical indication); or iterative reconstruction.
== END 2022-05-27 02:43 ==
LOC: DI 02:24
PROVIDERS: PCP Physician Assistant; Visit Provider Physician Assistant
DX: Z12.2 Encounter for screening for malignant neoplasm of respiratory organs (principal); F17.210 Nicotine dependence, cigarettes, uncomplicated; J92.9 Pleural plaque without asbestos
CPT/HCPCS: 71271

== ENCOUNTER 2022-05-27 19:31 | Outpatient (REF) | payer MEDICARE, MEDICAID, SELFPAY ==
[2022-05-27 15:36] LABS: HCT 37.1 % (36.0-46.0); HGB 11.1 g/dL (11.2-15.7); MCH 22.8 pg (27.0-33.0); MCHC 29.9 % (32.0-36.0); MCV 76 fL (80-95); MPV 8.9 fL (8.0-11.0); Platelet Count 363 10^3/uL (130-400); RBC 4.86 10^6/uL (3.93-5.22); RDW 17.2 % (11.7-14.6); RDW-SD 47.8 fL; WBC 6.73 10^3/uL (4.4-10.8)
[2022-05-27 17:28] LABS: ALT 23 U/L (14-59); AST 21 U/L (15-37); Albumin 3.7 g/dL (3.4-5.0); Alkaline Phosphatase 198 U/L (46-116); Anion Gap 7.7 mmol/L (3-11); BUN 12 mg/dL (7-18); Bilirubin, Total 0.3 mg/dL (0.2-1.0); CO2 28.3 mmol/L (21.0-32.0); CREATININE 1.2 mg/dL (0.55-1.02); Calcium 9.3 mg/dL (8.5-10.1); Calculated LDL 58 mg/dL (<100); Chloride 103 mmol/L (98-107); Cholesterol 129 mg/dL (<200); Ferritin 10 ng/mL (8-252); Glucose 98 mg/dL (74-106); HDL Cholesterol 49 mg/dL (40-60); Potassium 4.4 mmol/L (3.5-5.1); Sodium 139 mmol/L (136-145); Total Protein 7.2 g/dL (6.4-8.2); Triglyceride 110 mg/dL (<150)
[2022-05-27 18:25] LABS: Iron 29 ug/dL (50-170)
== END 2022-05-27 19:32 | disposition home or self-care (01) ==
LOC: NCHCN 19:31
PROVIDERS: PCP Physician Assistant; Visit Provider Physician Assistant
DX: D64.9 Anemia, unspecified (principal); E78.5 Hyperlipidemia, unspecified
CPT/HCPCS: 80053; 80061; 85027; 82728; 83540

== ENCOUNTER → 2022-05-28 08:25 | Outpatient (BNVA) | payer MEDICARE, MEDICAID, SELFPAY | PROVIDERS: PCP Physician Assistant; Referring Provider Physician Assistant; Visit Provider Nurse Practitioner Adult Health | DX: G43.009 Migraine without aura, not intractable, without status migrainosus (principal) | CPT/HCPCS: 99213; 99214 ==

== ENCOUNTER → 2022-06-02 15:17 | Outpatient (BNVA) | payer MEDICARE, MEDICAID, SELFPAY | PROVIDERS: PCP Physician Assistant; Referring Provider Physician Assistant; Visit Provider Nurse Practitioner Adult Health | DX: G43.009 Migraine without aura, not intractable, without status migrainosus (principal) | CPT/HCPCS: 99211 ==

== ENCOUNTER 2022-06-11 08:25 | Day surgery (SDC) | payer MEDICARE, MEDICAID, SELFPAY ==
[2022-06-11] VITALS (8 sets, daily range): BP systolic 113–151; BP diastolic 72–96; PULSE 66–92; RESP 9–16; TEMP 36.4–36.6; O2SAT 92–98; BMI 40.0
--- NOTE | 2022-06-11 07:49 | HPE_ITS ---
Date of service: 06/11/22 Time of Service: 09:24 Assessment and Plan Assessment and plan (1) Cubital tunnel syndrome on left: Status: Acute (2) Left carpal tunnel syndrome: Status: Acute Assessment and plan: Plan: Educated patient on surgery covering surgical technique, recovery process, benefits and risks including but not limited to risk of infection, blood clot, damage to soft tissue/blood vessels/nerves in detail. After discussion patient gives verbal understanding of risks and elects to proceed with scheduling surgery. Patient had opportunity to have questions answered to their satisfaction. Patient will continue to be scheduled for left ECTR and cubital tunnel releases with associated procedures with Dr. Obregon History of Present Illness Narrative: Ms. Lindo is a 61-year-old female who presents to hospital for left ECTR and cubital tunnel releases. Reports no change in her medical history or symptoms since her last orthopedic appointment. Continues to have numbness and tingling running down her hand and into her fingers throughout the entire volar aspect of her hand.? She also has pain on the medial aspect of her left elbow. Denies additional injuries since she was seen. She wishes to proceed with surgery. Review of Systems Cardiovascular Cardiovascular: Denies chest pain, Denies dyspnea and Denies dyspnea on exertion Respiratory Respiratory: Denies dyspnea and Denies dyspnea on exertion PFSH All Active Problems Intestinal or peritoneal adhesions with obstruction (postoperative) (postinfection) (Chronic 02/03/14) Chronic diarrhea (Chronic 06/12/16) Tubular adenoma of colon (Chronic 04/18/16) Tachycardia (Chronic) Substance abuse (Chronic) Denies Polyp of colon (Chronic) Peptic ulcer (Chronic) Diverticulitis (Chronic 08/27/17) Chronic pain syndrome (Chronic 04/08/12) Morbid obesity (Acute) Gastrointestinal disorder (Acute) Lower extremity edema (Acute) Diverticula of colon (Acute) Internal hemorrhoid, bleeding (Acute) Iron deficiency anemia due to chronic blood loss (Acute) Chronic GERD (Acute) Internal derangement of left knee (Acute) Cubital tunnel syndrome on left (Acute) Left carpal tunnel syndrome (Acute) Chest pain (Acute) Headache (Acute) Migraine headache without aura (Acute) Medical History Acute sore throat Allergic rhinitis Anemia Anxiety disorder Bipolar 1 disorder Borderline personality disorder Candidal intertrigo Carpal tunnel syndrome Chronic back pain Chronic lower back pain Cough Depressive disorder Dysphagia (10/12/08) Eczema Elevated blood sugar Essential hypertension Headache Heel pain History of peptic ulcer Hyperlipidemia Knee pain, left Left cervical radiculopathy Lumbar radiculopathy, right Lymphedema Migraine cerviogenic CHOI & analgesia rebound Optic nerve atrophy Optic nerve atrophy, bilateral Pain in left shoulder Panic attacks Peripheral neuropathy Pes planus Pharyngitis Polypharmacy Postmenopausal state Spinal stenosis of lumbar region (11/11/16) Ulnar neuropathy at wrist Surgical History Abdominal hysterectomy (~2000) Bilateral salpingectomy with oophorectomy Cholecystectomy (~12/2008) w/ cholangiogram Colonoscopy - MAC (04/18/09) 10/2021 History of esophagogastroduodenoscopy (EGD) Hx of right knee surgery Family History Mother Essential hypertension Uterine cancer Father Bone cancer Sister Cervical cancer Sister No problems noted. Brother , AGE 51 Depression Brother , AGE 57 No problems noted. Brother Essential hypertension Asthma Brother Alcohol abuse Maternal Grandmother , age 86 Skin cancer Paternal Grandmother Cancer Son No problems noted. Daughter Depression Social History Smoking/Tobacco Use Status: Current every day Tobacco Type: cigarettes Years smoked: 40 Smoking risk assessment performed?: Yes Alcohol Intake: never Drug use: Never Substance use type: does not use Duration: > 90 minutes/day Frequency: daily Elvia/Pentecostal: No preference Special elvia needs: No Do you feel safe at home: Yes Do you feel safe in your relationship?: Yes Meds Allergies and Home Medications Allergies Allergy/AdvReac Type Severity Reaction Status Date / Time prednisone AdvReac Severe GI upset Verified 06/11/22 08:37 topiramate AdvReac Severe Suicical Verified 06/11/22 08:37 ideation celecoxib [From Celebrex] AdvReac Intermediate GI Bleeding Verified 06/11/22 08:37 NSAIDS (Non-Steroidal AdvReac Intermediate blood in Verified 06/11/22 08:37 Anti-Inflamma stool pregabalin [From Lyrica] AdvReac Intermediate suicidal Verified 06/11/22 08:37 thoughts, confusion aspirin AdvReac Pt states, Verified 06/11/22 08:37 Makes me bleed Home Medications Medication Instructions Recorded Confirmed Type desvenlafaxine succinate 100 mg 100 mg PO DAILY #30 tabs 05/05/14 06/02/22 History tablet,extended release 24 hr (Pristiq) propranolol 80 mg capsule,24 80 mg PO DAILY migraine 08/16/19 06/02/22 Rx hr,extended release prophylaxis #90 caps nystatin 100,000 unit/gram topical 1 applic topical BID PRN 04/17/20 06/02/22 Rx powder intertrigo #60 grams atorvastatin 40 mg tablet 40 mg PO DAILY 10/17/21 06/02/22 History dibucaine 1 % rectal ointment 1 applic [place] QID PRN hemorrhoids 10/31/21 06/02/22 Rx #56 grams pantoprazole 40 mg tablet,delayed 40 mg PO DAILY #30 tabs 12/23/21 06/02/22 Rx release (Protonix) acetaminophen 500 mg tablet 500 mg PO Q6H PRN PRN pain #60 tabs 04/29/22 06/02/22 Rx betamethasone dipropionate 0.05 % 1 applic topical BID PRN 05/19/22 06/02/22 History topical cream gabapentin 600 mg tablet 900 mg PO TID 05/19/22 06/02/22 History potassium chloride 20 mEq 20 meq PO DAILY 05/19/22 06/02/22 History tablet,extended release furosemide 40 mg tablet 20 mg PO DAILY PRN edema 05/21/22 06/02/22 History galcanezumab-gnlm 120 mg/mL 240 mg (2 mL) subcut ONCE #2 mL 05/26/22 06/02/22 Rx subcutaneous pen injector (Emgality Pen) prochlorperazine maleate 5 mg See Rx Instructions PO TID PRN 05/26/22 06/02/22 Rx tablet headaches and nausea #30 tabs lernhihzil-lvmmgdzlijham-jwcbmrwr 1 cap PO BID PRN 06/02/22 06/02/22 History 50 mg-325 mg-40 mg capsule codeine 10 mg-guaifenesin 100 mg/5 5 - 10 ml PO QHS 06/02/22 06/02/22 History mL oral liquid Exam Const General: cooperative and no acute distress Resp Effort & Inspection: normal respiratory effort and able to speak in complete sentences Auscultation: clear to auscultation bilaterally, no rales, no rhonchi and no wheezes Cardio Heart Sounds: S1 normal, S2 normal and no murmurs Time Spent Time spent with Patient: <40 minutes Time was spent: preparing to see the patient(eg.review tests), obtaining and/or reviewing separately otained hiistory and counseling the patient
--- NOTE | 2022-06-11 09:12 | W.ANESPRE ---
General Info Date of Service Date Performed: 06/11/22 Height: 5 ft 3 in Weight: 102.5 kg Body Mass Index (BMI): 40.0 Surgical Procedure: Operation Date: 06/11/22 09:55 Proposed Procedure Side Surgeon p Cubital Tunnel Release Left Eduar Obregon MD s Wrist ECTR Left Eduar Obregon MD Meds Allergies and Home Medications Allergies Allergy/AdvReac Type Severity Reaction Status Date / Time prednisone AdvReac Severe GI upset Verified 06/11/22 09:28 topiramate AdvReac Severe Suicical Verified 06/11/22 09:28 ideation celecoxib [From Celebrex] AdvReac Intermediate GI Bleeding Verified 06/11/22 09:28 NSAIDS (Non-Steroidal AdvReac Intermediate blood in Verified 06/11/22 09:28 Anti-Inflamma stool pregabalin [From Lyrica] AdvReac Intermediate suicidal Verified 06/11/22 09:28 thoughts, confusion aspirin AdvReac Pt states, Verified 06/11/22 09:28 Makes me bleed Home Medication Medication Instructions Recorded desvenlafaxine succinate 100 mg 100 mg PO DAILY #30 tabs 05/05/14 tablet,extended release 24 hr (Pristiq) propranolol 80 mg capsule,24 80 mg PO DAILY migraine 08/16/19 hr,extended release prophylaxis #90 caps nystatin 100,000 unit/gram topical 1 applic topical BID PRN 04/17/20 powder intertrigo #60 grams atorvastatin 40 mg tablet 40 mg PO DAILY 10/17/21 dibucaine 1 % rectal ointment 1 applic VA QID PRN hemorrhoids 10/31/21 #56 grams pantoprazole 40 mg tablet,delayed 40 mg PO DAILY #30 tabs 12/23/21 release (Protonix) acetaminophen 500 mg tablet 500 mg PO Q6H PRN PRN pain #60 tabs 04/29/22 betamethasone dipropionate 0.05 % 1 applic topical BID PRN 05/19/22 topical cream gabapentin 600 mg tablet 900 mg PO TID 05/19/22 potassium chloride 20 mEq 20 meq PO DAILY 05/19/22 tablet,extended release furosemide 40 mg tablet 20 mg PO DAILY PRN edema 05/21/22 galcanezumab-gnlm 120 mg/mL 240 mg (2 mL) subcut ONCE #2 mL 05/26/22 subcutaneous pen injector (Emgality Pen) prochlorperazine maleate 5 mg See Rx Instructions PO TID PRN 05/26/22 tablet headaches and nausea #30 tabs jpjydaqsca-coqjfsgkbpqoo-cjsmcwhp 1 cap PO BID PRN 06/02/22 50 mg-325 mg-40 mg capsule codeine 10 mg-guaifenesin 100 mg/5 5 - 10 ml PO QHS 06/02/22 mL oral liquid Current Visit Medications: Current Medications Generic Name Dose Route Start Last Admin Trade Name Freq PRN Reason Stop Dose Admin Acetaminophen 650 mg 06/11/22 07:24 Acetaminophen 325 Mg Tab PO Q4H PRN PRN Hydrocodone Bitart/Acetaminophen 0 tab 06/11/22 07:24 Hydrocodone 5/Acetaminophen 325 Tab PO Q3H PRN PRN Pain Ringer's Solution 1,000 mls @ 80 mls/hr 06/11/22 06:00 IV 07/10/22 23:59 INFUSION HANNAH Cefazolin Sodium/Dextrose 2 gm in 50 mls @ 100 mls/hr 06/11/22 06:00 Ancef Duplex IVPB 06/11/22 16:00 PREOP HANNAH IV Miscellaneous Supplies 1 each 06/11/22 06:00 Iv Access IV 07/10/22 23:59 DIRECTED HANNAH Sodium Chloride 0 ml 06/11/22 06:00 Normal Saline Flush 10 Ml Syr IV 07/10/22 23:59 PRN PRN Sodium Chloride 0 ml 06/11/22 06:00 Normal Saline 10 Ml Vial IJ 07/10/22 23:59 DIRECTED PRN Sterile Water 0 ml 06/11/22 06:00 Water,Injection,Sterile 10 Ml Vial IJ 07/10/22 23:59 DIRECTED PRN PFSH Active Problems Active Problems: Problem Status Onset Code Intestinal or peritoneal adhesions with obstruction (postoperative) (postinfection) 02/03/14 K56.5 Chronic diarrhea 06/12/16 K52.9 Tubular adenoma of colon 04/18/16 D12.6 Tachycardia R00.0 Substance abuse F19.10 Polyp of colon K63.5 Peptic ulcer K27.9 Diverticulitis 08/27/17 K57.92 Chronic pain syndrome 04/08/12 G89.4 Morbid obesity E66.01 Gastrointestinal disorder K92.9 Lower extremity edema R60.0 Diverticula of colon K57.30 Internal hemorrhoid, bleeding K64.8 Iron deficiency anemia due to chronic blood loss D50.0 Chronic GERD K21.9 Internal derangement of left knee M23.92 Cubital tunnel syndrome on left G56.22 Left carpal tunnel syndrome G56.02 Chest pain R07.9 Headache R51.9 Migraine headache without aura G43.009 Medical History Medical History Acute sore throat Allergic rhinitis Anemia Anxiety disorder Bipolar 1 disorder Borderline personality disorder Candidal intertrigo Carpal tunnel syndrome Chronic back pain Chronic lower back pain Cough Depressive disorder Dysphagia (10/12/08) Eczema Elevated blood sugar Essential hypertension Headache Heel pain History of peptic ulcer Hyperlipidemia Knee pain, left Left cervical radiculopathy Lumbar radiculopathy, right Lymphedema Migraine cerviogenic CHOI & analgesia rebound Optic nerve atrophy Optic nerve atrophy, bilateral Pain in left shoulder Panic attacks Peripheral neuropathy Pes planus Pharyngitis Polypharmacy Postmenopausal state Spinal stenosis of lumbar region (11/11/16) Ulnar neuropathy at wrist Surgical History Surgical History Abdominal hysterectomy (~2000) Bilateral salpingectomy with oophorectomy Cholecystectomy (~12/2008) w/ cholangiogram Colonoscopy - MAC (04/18/09) 10/2021 History of esophagogastroduodenoscopy (EGD) Hx of right knee surgery Tobacco Smoking/Tobacco Use Status: Current every day Tobacco Type: cigarettes Smoking cigarettes per day: 2 Years smoked: 40 Passive smoking exposure: No Alcohol Alcohol Intake: never Substance Use Substance use: Never Substance use type: does not use Vital Signs and Lab Results Vital Signs Most Recent Vital Signs in EMR: Most Recent Vital Signs Temp Pulse Resp BP Pulse Ox 36.6 C 92 H 16 141/96 H 98 06/11/22 08:38 06/11/22 08:38 06/11/22 08:38 06/11/22 08:38 06/11/22 08:38 Lab Results Blood Type / Crossmatch: No Data to Display Complete Blood Count: White Blood Count 6.73 10^3/uL (4.4-10.8) 05/27/22 08:00 Red Blood Count 4.86 10^6/uL (3.93-5.22) 05/27/22 08:00 Hemoglobin 11.1 g/dL (11.2-15.7) L 05/27/22 08:00 Hematocrit 37.1 % (36.0-46.0) 05/27/22 08:00 Platelet Count 363 10^3/uL (130-400) 05/27/22 08:00 Complete Metabolic Panel: Sodium 139 mmol/L (136-145) 05/27/22 08:00 Potassium 4.4 mmol/L (3.5-5.1) 05/27/22 08:00 Chloride 103 mmol/L (98-107) 05/27/22 08:00 Carbon Dioxide 28.3 mmol/L (21.0-32.0) 05/27/22 08:00 BUN 12 mg/dL (7-18) 05/27/22 08:00 Creatinine 1.2 mg/dL (0.55-1.02) H 05/27/22 08:00 Est GFR (CKD-EPI 2020) 51.50 (mL/min/1.73m2) 05/27/22 08:00 Magnesium 2.1 mg/dL (1.8-2.4) 05/24/22 16:56 Calcium 9.3 mg/dL (8.5-10.1) 05/27/22 08:00 Albumin 3.7 g/dL (3.4-5.0) 05/27/22 08:00 Glucose 98 mg/dL (74-106) 05/27/22 08:00 Liver Function Panel: Alanine Aminotransferase (ALT/SGPT) 23 U/L (14-59) 05/27/22 08:00 Aspartate Amino Transf (AST/SGOT) 21 U/L (15-37) 05/27/22 08:00 Coagulation Panel: INR International Normalized Ratio 0.9 (0.9-1.1) 05/24/22 16:56 Prothrombin Time 8.9 sec (9.3-11.0) L 05/24/22 16:56 Activated Partial Thromboplast Time 23.9 sec (21.0-27.5) 05/24/22 16:56 Cardiac Panel: Troponin I < 50 ng/L (<or=60) 05/24/22 Arterial Blood Gas: No Data to Display Venous Blood Gas: No Data to Display Pancreas Panel: Lipase 170 U/L (73-393) 05/24/22 16:56 Thyroid Panel: No Data to Display Infectious Disease: No Data to Display Blood Cultures: No Data to Display Toxicology Panel: No Data to Display Imaging and Studies Imaging and Studies Study information below may be from another EMR and interpreted by another provider. Please see original notes in EMR for more complete details. EKG Summary: 05/2022 Conclusion Sinus rhythm...normal P axis, V-rate 60- 99 Right bundle branch block...QRSd>120, terminal axis(90,270) Echocardiogram Summary: 10/2021 Normal left ventricular wall thickness and chamber size. Estimated ejection fraction is 60%. Wall motion is normal Normal right ventricular size and systolic function Both atria are normal in size There is no structural or hemodynamically significant valvular disease Right ventricular systolic pressure is normal at 22 mmHg Wall motion Anesthesia Assessment and Plan Anesthesia History Personal History: No History of Anesthesia Complications Family History: No Family History of Anesthesia Complications Exercise Tolerance Exercise Tolerance: Metabolic Equivalents>4 Pertinent Negatives Pertinent Negatives: No Symptoms of GERD Cardiac & Pulmonary Exam Cardiac Exam: Normal S1/S2 Heart Sounds Pulmonary Exam: Clear Bilateral Breath Sounds Implantable Cardiac Device Does patient have a Pacemaker or an ICD?: No Airway Exam Known Difficult Airway: No Mallampati Class: 3 Mouth Opening: Narrow (< 3cm) Thyromental Distance: Less than 3 cm Neck Range of Motion: Limited ROM Neck Circumference: Thick Teeth Condition: Removable Dentures/Plates Upper and Edentulous Airway Comments: Morbid obesity, no neck, limited ROM ASA Classification ASA Score: ASA 3 Emergency Case?: No NPO Status NPO Status: NPO Clears >2 hours, Solids >8 hours Anesthesia Plan Resuscitation Status: Full Code Anesthesia Technique: General Anesthesia Airway Planned: LMA Monitors Used: Standard Monitors Preoperative Comments:: Anxious but cooperative
[2022-06-11] MEDS: Lactated Ringers 1,000 ML 80 ML IV (09:23)
--- NOTE | 2022-06-11 09:42 | W.PM.DSUDISC ---
Date of service: 06/11/22 Time of Service: 09:45 Discharge Plan Disposition Patient Disposition: Home Condition: Good Discharge Details Reason For Visit: Left carpal and cubital tunnel syndromes Attending Provider: Eduar Obregon Primary Care Provider: Colten Grover Home Meds and New Rx's Prescriptions: New acetaminophen 500 mg tablet 500 mg PO Q6H PRN (Reason: pain) Qty: 60 2RF hydrocodone-acetaminophen 5-325 mg tablet 1 tab PO Q6H PRN (Reason: severe pain) Qty: 12 0RF Rx Instructions: Take one tablet up to every 6 hours as needed for severe postoperative pain Continued propranolol 80 mg capsule,extended release 24 hr 80 mg PO DAILY Qty: 90 4RF pantoprazole [Protonix] 40 mg tablet,delayed release (DR/EC) 40 mg PO DAILY Qty: 30 12RF betamethasone dipropionate 0.05 % cream 1 applic topical BID PRN Rx Instructions: to the elbows until dry skin is resolved potassium chloride 20 mEq tablet extended release 20 meq PO DAILY prochlorperazine maleate 5 mg tablet See Rx Instructions PO TID PRN (Reason: headaches and nausea) Qty: 30 3RF Rx Instructions: 5-10 mg orally three times a day PRN; Emgality Pen 120 mg/mL pen injector 240 mg subcut ONCE Qty: 2 0RF Rx Instructions: as a single dose; administer as two 120 mg injections at separate sites atorvastatin 40 mg tablet 40 mg PO DAILY codeine-guaifenesin 10-100 mg/5 mL liquid 5 - 10 ml PO QHS ovjomlwzdy-pdcbofdjulfsm-osfa 50-325-40 mg capsule 1 cap PO BID PRN Label Comments: States she takes for severe headaches only. Rx Instructions: take one capsule by mouth BID prn. Do not take more than 3 days per week. desvenlafaxine succinate [Pristiq] 100 MG tablet extended release 24 hr 100 mg PO DAILY Qty: 30 nystatin 100,000 unit/gram powder 1 applic Topical BID PRN (Reason: intertrigo) Qty: 60 4RF dibucaine 1 % ointment 1 applic LA QID PRN (Reason: hemorrhoids) Qty: 56 5RF gabapentin 600 mg tablet 900 mg PO TID furosemide 40 mg tablet 20 mg PO DAILY PRN (Reason: edema) Discontinued acetaminophen 500 mg tablet 500 mg PO Q6H PRN PRN (Reason: pain) Qty: 60 3RF Discharge Instructions Additional Instructions: Cubital Tunnel Decompression Discharge Instructions Activity: You should stay in the sling for the first 2 weeks. You may come out of the sling for gentle motion and hygiene but should largely remain in the sling to allow the incision site to heal. Gentle motion of the elbow, hand, wrist, and fingers is okay and encouraged after the first few days, but no repetitive activites nor heavy lifting. You may apply ice. Medications: - You should take Tylenol around the clock. - You have been prescribed Hydrocodone for breakthrough pain. Dressings: - The initial surgical dressing should stay in place for 3 days. It may then be removed and kept clean and dry. You should cover with a light gauze dressing. - You may shower after 3 days and get the wound wet. Follow-up: 10 days Stand Alone Forms: [place] Tunnel Release Equipment/Supplies: Sling Activity:: Elevate Remove Dressings/Wound Care:: 72 hours Shower/Bathe:: 72 hours Diet:: As Tolerated Discharge Orders Discharge Orders: Discharge Order (Routine); Ordered 06/11/22 Ordered By: Stephanie Sanders DS: Diagnosis Discharge Diagnosis (1) Cubital tunnel syndrome on left: Status: Acute (2) Left carpal tunnel syndrome: Status: Acute
[2022-06-11] MEDS: ceFAZolin 2 GM/50 ML BAG IVPB (10:02)
[2022-06-11] MEDS: Bupivacaine 0.5% Pres-Free W/EPI 30 ML VIAL (10:18)
--- NOTE | 2022-06-11 11:32 | W.ANESPOSTOP ---
Postoperative Evaluation Date, Time and Location Date Performed: 06/11/22 Time Performed: 11:35 Patient Location: PACU Vital Signs Most Recent Imported Vital Signs: Most Recent Vital Signs Temp Pulse Resp BP Pulse Ox 36.4 C L 82 9 L 134/80 95 06/11/22 11:21 06/11/22 11:21 06/11/22 11:21 06/11/22 11:21 06/11/22 11:21 Pain Score Most Recent Pain Score: Most Recent Pain Score Pain Level 0 06/11/22 08:38 Assessment Mental Status: Awake (Alert & Oriented to Patient Baseline) Airway and Respiratory Function: Patent airway with normal (patient baseline) respiratory exam Cardiovascular Function: Hemodynamically Stable Hydration Status: Adequately Hydrated Nausea & Vomiting: No Nausea or Vomiting Pain: Pain is tolerable per patient Peripheral Nerve Block: Patient did not receive a nerve block Postoperative Comments:: pt sitting up sipping on drink.When asked she says she has pain but with re assurance looks happy.
[2022-06-11] MEDS: HYDROmorphone 2 MG/ML SYR IVP (11:40)
--- NOTE | 2022-06-11 13:26 | W.PM.OP ---
Date of service: 06/11/22 Time of Service: 11:00 Operative Note Operative Note DATE OF PROCEDURE: 06/11/22 PRE-OP DIAGNOSIS: Left Carpal Tunnel and Left Cubital Tunnel Syndrome POST-OP DIAGNOSIS: same PROCEDURE: Left Endoscopic Carpal Tunnel Release and Left Cubital Tunnel Decompression with Anterior Subcutaneous Transposition SURGEON: Eduar Obregon CLOTH PRINTING INSPECTOR: Stephanie Sanders ANESTHESIA TYPE: General LMA/ETT Refer to Anesthesia Record ESTIMATED BLOOD LOSS: 0 PATHOLOGY: none sent TOURNIQUET TIME: 29 COMPLICATIONS: None Patient was transported to: PACU Patient's condition: stable Indications: Anabelle is a 61 year old female who has had symptoms of carpal and cubital tunnel syndrome. Nonoperative treatment options had been trialed. Nerve conduction studies identified the carpal and cubital tunnel as the point of compression. Given failure of nonoperative treatments and persistent symptoms, I offered operative intervention. I reviewed the technical details of a carpal tunnel release and cubital tunnel decompression with possible anterior subcutaneous transposition. I reviewed the risk of the procedure to include bleeding, infection, pain, stiffness, nerve instability, damage to superficial nerves, persistent symptoms, and incomplete release. Despite these risks, the patient elected to proceed. Findings: The carpal tunnel was release with a standard endoscopic technique without difficulty and excellent visualization. There was a tightened cubital tunnel. The ulnar nerve was release from the first motor branch distally through the [place] of [place] proximally. It was unstable and thus an anterior subcutaneous transposition was performed. Procedure Description: Anabelle was greeted in the preoperative holding area where the correct side was identified and marked. The consent was reviewed with the patient and signed. The history and physical was updated. All questions were answered. She was taken back to the operating room. The patient was placed into the supine position on the operating room table with the left arm on an arm board. A nonsterile tourniquet was placed high onto the arm, into the axilla. All bony prominences were well padded. Prophylactic antibiotics in the form of Cefazolin were administered. The right arm was then prepped with Chloraprep and draped in a standard fashion with stockinette and extremity drape. A timeout to confirm correct identity, side and site, procedure, allergies, anesthesia, and medical concerns was performed. The surgical site was marked in the volar wrist creases in line with the radial border of the fourth ray. This area was anesthetized with approximately 6cc of 1% Lidocaine with Epinephrine. The surgical site about the medial elbow was drawn on the skin just posterior to the medial epicondyle borders. The planned surgical field was anesthetized with 1% Lidocaine with Epinephrine. The limb was then exsanguinated with an Esmarch. Starting with the carpal tunnel, the skin was incised with a 15 blade, approximately 1cm. The skin only was cut and the deeper tissue was dissected bluntly with a tenotomy scissor, avoiding passing nerve and venous structures. The fascia was penetrated and opened bluntly. A two-prong skin hook was placed under this proximal fascial edge. A series of hamate finders were used to identify and dilate the carpal tunnel. Synovial elevator was used to free synovial attachments to the underside of the transverse carpal ligament. My thumb was kept in the palm to varghese the distal extent of the carpal tunnel and correctly position the hand. The [employer] endoscope was inserted without difficulty and without resistance. Excellent visualization showed horizontally running fibers of the transverse carpal ligament (TCL). The distal extent of the TCL was visualized and the end of the scope palpated with the thumb. The blade was elevated and withdrawn from distal to proximal. The TCL was split into two flaps. The endoscope was reinserted to confirm complete release and any remnant ligament was incised. The scope was withdrawn and the proximal aspect of the carpal tunnel was grossly inspected and appeared release with the median nerve visible. The antebrachial fascia at the level of the wrist was then freed from the overlying skin and then the underlying median nerve with blunt dissection. This was transected longitudinally for about 3cm proximal to the wrist incision. The wound was then irrigated with easy flow of irrigant distally and proximally. The incision was closed with a single 4-0 Nylon suture. . Attention was then turned to the cubital tunnel release. The skin of the medial elbow was incised only with the elbow in some flexion and on a bump. The deep tissue and subcutaneous fat was dissected with a tenotomy scissors trying to protect any branches of the medial antebrachial cutaneous nerve. Any branches that were identified were retracted out of the way. The ulnar nerve was palpated and identified. A small window into the cubital tunnel, sheath overlying the nerve, was created and the nerve was able to be palpated with the [place]. A Metzenbaum scissor was then used to open up the sheath starting with Gomez's ligament. I then worked distal over the ulnar nerve releasing any constraints against the nerve all the way to the fascia of the FCU muscle belly. This muscle belly was bluntly all the way down to the first motor branch of the ulnar nerve and the overlying fascia was incised. Likewise starting there at the medial epicondyle, I proceeded to work proximally to release any constraints over the ulnar nerve. This was taken all the way to the arcade of [place]. The medial intermuscular septum was also palpated and any sharp edges against the ulnar nerve were resected and released. After fully releasing the nerve it was inspected visually. I was also able to palpate the nerve fully and reach one finger up into the proximal and distal aspects to make sure there were no constraints against the nerve. A freer elevator was also used to slide easily against the ulnar nerve without any points of constriction. The arm was then taken through range of motion. The ulnar nerve did sublux/dislocate out of its groove behind the lateral epicondyle. Given the subluxation of the ulnar nerve from the medial epicondyle the transposition was performed by first releasing deep adhesions and connections between the ulnar nerve and the deeper tissues of the arm and forearm. This was freed. The nerve is moved anteriorly to ensure there is no other points of compression proximally distally. I then raised a flap of fascial tissue combined with some overlying adiposity from the medial condyle and the flexor pronator mass. This flap was raised anchored to the medial edge of the medial upper condyle. The nerve was then transposed anteriorly and the adipose fascial flap was tied to the overlying dermis and fat of the medial elbow. This was secured with sutures. The nerve was checked to make sure there is no point of compression either at the level of the transposition or at the proximal and distal aspects of the nerve. The tourniquet was then deflated. Any areas of bleeding were cauterized with bipolar electrocautery. The wound was thoroughly irrigated. The deep tissue was closed with a 3-0 Vicryl. The skin was closed with a 4-0 nylon. The wounds were dressed with Xeroform, 4 x 4's, ABD, Kerlix and an Jay wrap. Anabelle was placed into a sling. She was transferred back to the PACU in a stable condition.
== END 2022-06-11 12:58 | disposition home or self-care (01) ==
PROVIDERS: PCP Physician Assistant; Visit Provider Student in an Organized Health Care Education/Training Program
PROC: (CPT 64718; principal; 2022-06-11 09:45)
PROC: 01N54ZZ Release Median Nerve, Percutaneous Endoscopic Approach (ICD-10-PCS; CPT 29848; 2022-06-11 09:45)
DX: G56.02 Carpal tunnel syndrome, left upper limb (principal); G56.22 Lesion of ulnar nerve, left upper limb
CPT/HCPCS: 64718; 29848; J0690; J1100; J1170; J2250; J2405; J2704; J3010; L3650

== ENCOUNTER → 2022-06-20 09:44 | Outpatient (BNVA) | payer MEDICARE, MEDICAID, SELFPAY | PROVIDERS: PCP Physician Assistant; Referring Provider Physician Assistant; Visit Provider Physician Assistant | DX: Z47.89 Encounter for other orthopedic aftercare (principal); R20.0 Anesthesia of skin ==

== ENCOUNTER 2022-06-27 00:58 | Outpatient (CLI) | payer MEDICARE, MEDICAID, SELFPAY ==
--- NOTE | 2022-06-27 13:30 | DI.DEXA_ITS ---
Exam(s) XR DEXA BONE DENSITY W/WO WILBUR EXAM: XR DEXA BONE DENSITY W/WO WILBUR CLINICAL HISTORY: POSTMENOPAUSAL STATE, Z78.0 TECHNIQUE: [employer] C densitometer analysis of left hip, lumbar spine and left forearm. COMPARISON: No exams were available for comparison FINDINGS: Lateral view of the thoracic and lumbar spine shows no evidence of compression fractures. Bone mineral density measurements of the lumbar spine correspond to a total T-score of -0.7, in the normal range. Bone mineral density measurements of the left hip correspond to a total T-score of -1.1. The femora l neck T-score is -1.0, in the osteopenic range.. The right forearm bone mineral density measurements correspond to a T-score of the distal 3rd of -0. 3, in the normal range.. IMPRESSION: Normal bone mineral density of the lumbar spine and forearm. Mild osteopenia of the hip.
== END 2022-06-27 01:18 ==
LOC: DI 00:58
PROVIDERS: PCP Physician Assistant; Visit Provider Physician Assistant
DX: Z78.0 Asymptomatic menopausal state (principal); Z13.820 Encounter for screening for osteoporosis; M85.89 Other specified disorders of bone density and structure, multiple sites
CPT/HCPCS: 77080

== ENCOUNTER → 2022-08-15 10:02 | Outpatient (BNVA) | payer MEDICARE, MEDICAID, SELFPAY | PROVIDERS: PCP Physician Assistant; Referring Provider Physician Assistant; Visit Provider Student in an Organized Health Care Education/Training Program | DX: Z48.811 Encounter for surgical aftercare following surgery on the nervous system (principal); R20.0 Anesthesia of skin; G56.02 Carpal tunnel syndrome, left upper limb; G56.22 Lesion of ulnar nerve, left upper limb; M77.12 Lateral epicondylitis, left elbow ==

== ENCOUNTER → 2022-08-21 13:27 | Outpatient (BNVA) | payer MEDICARE, MEDICAID, SELFPAY | PROVIDERS: PCP Physician Assistant; Referring Provider Physician Assistant; Visit Provider Nurse Practitioner Adult Health | DX: G43.009 Migraine without aura, not intractable, without status migrainosus (principal); F39 Unspecified mood [affective] disorder; Z72.0 Tobacco use; G89.29 Other chronic pain | CPT/HCPCS: 99213 ==

== ENCOUNTER → 2022-10-13 10:00 | Outpatient (BNVA) | payer MEDICARE, MEDICAID, SELFPAY | PROVIDERS: PCP Physician Assistant; Referring Provider Physician Assistant; Visit Provider Student in an Organized Health Care Education/Training Program | DX: M65.342 Trigger finger, left ring finger (principal); G56.22 Lesion of ulnar nerve, left upper limb; G56.02 Carpal tunnel syndrome, left upper limb | CPT/HCPCS: 20550; J1030 ==

== ENCOUNTER → 2023-01-12 10:29 | Outpatient (BNVA) | payer MEDICARE, MEDICAID, SELFPAY | PROVIDERS: PCP Physician Assistant; Referring Provider Physician Assistant; Visit Provider Student in an Organized Health Care Education/Training Program | DX: M65.342 Trigger finger, left ring finger (principal); G56.22 Lesion of ulnar nerve, left upper limb; G56.02 Carpal tunnel syndrome, left upper limb; M77.02 Medial epicondylitis, left elbow | CPT/HCPCS: 99213 ==

== ENCOUNTER 2023-05-13 20:15 | Outpatient (REF) | payer MEDICARE, MEDICAID, SELFPAY ==
[2023-05-13 20:47] LABS: HCT 33.5 % (36.0-46.0); HGB 9.8 g/dL (11.2-15.7); MCH 21.5 pg (27.0-33.0); MCHC 29.3 % (32.0-36.0); MCV 74 fL (80-95); MPV 8.9 fL (8.0-11.0); Platelet Count 356 10^3/uL (130-400); RBC 4.56 10^6/uL (3.93-5.22); RDW 17.6 % (11.7-14.6); RDW-SD 46.9 fL; WBC 6.45 10^3/uL (4.4-10.8)
[2023-05-13 21:24] LABS: Iron 22 ug/dL (50-170); Total Iron Binding Capacity 431 ug/dL (250-450); Transferrin Sat 5 % (15-50)
[2023-05-13 21:30] LABS: ALT 23 U/L (14-59); AST 16 U/L (15-37); Albumin 3.6 g/dL (3.4-5.0); Alkaline Phosphatase 190 U/L (46-116); Anion Gap 7.2 mmol/L (3-11); BUN 12 mg/dL (7-18); Bilirubin, Total 0.3 mg/dL (0.2-1.0); CO2 25.8 mmol/L (21.0-32.0); Calculated LDL 137 mg/dL (<100); Chloride 104 mmol/L (98-107); Cholesterol 215 mg/dL (<200); Ferritin 7 ng/mL (8-252); Glucose 92 mg/dL (74-106); HDL Cholesterol 55 mg/dL (40-60); Potassium 4.4 mmol/L (3.5-5.1); Sodium 137 mmol/L (136-145); Total Protein 7.1 g/dL (6.4-8.2); Triglyceride 116 mg/dL (<150); Vitamin B12 221 pg/mL (193-986)
== END 2023-05-13 20:16 | disposition home or self-care (01) ==
LOC: NCHCN 20:15
PROVIDERS: PCP Physician Assistant; Visit Provider Physician Assistant
DX: E78.5 Hyperlipidemia, unspecified (principal); D64.9 Anemia, unspecified
CPT/HCPCS: 80053; 80061; 85027; 82607; 82728; 83540; 83550

== ENCOUNTER → 2023-07-17 01:39 | Outpatient (CLI) | payer MEDICARE, MEDICAID, SELFPAY ==
--- NOTE | 2023-07-17 | DI.MRI_ITS ---
Exam(s) MR BRAIN ORBIT FACE NECK WO/W EXAM: MR BRAIN ORBIT FACE NECK WO/W CLINICAL HISTORY: UNSPECIFIED OPTIC ATROPHY, H47.20 TECHNIQUE: Multiplanar multisequence MRI of the brain was performed. 20 mL Dotarem IV. COMPARISON: No exams were available for comparison FINDINGS: VENTRICLES AND EXTRA AXIAL SPACES: Normal in size and morphology for the patient's age. HEMORRHAGE: None. CEREBRAL PARENCHYMA: No focus of restricted diffusion to suggest acute infarct. No space-occupying le wing identified. No abnormal white matter lesions. No abnormal enhancement. The pituitary appears normal. MIDLINE SHIFT: None. BRAINSTEM/CEREBELLUM: Normal. CALVARIUM: Normal. VISUALIZED PARANASAL SINUSES/MASTOIDS: Clear. ORBITS: The anterior and posterior chambers of the globes are intact. The retrobulbar fat is unremark able. Extraocular muscles are unremarkable. OPTIC NERVES: The optic nerves are symmetric in size. The optic nerves appear mildly diffusely atrop hic bilaterally. Optic chiasm is within normal limits. No MRI evidence of optic neuritis identified. SOFT TISSUES: The superior opthalmic veins are unremarkable. Remaining soft tissues are unremarkable. OTHER FINDINGS: Extraocular muscles appear normal. No abnormal signal in the intraconal fat. IMPRESSION: Symmetric bilateral mild optic nerve atrophy. No abnormal enhancement. The brain appears normal. DATA REPOSITORY:
[2023-07-17] MEDS: Gadoterate meglumine 20 ML SYRINGE IVP (13:00)
[2023-07-17] MEDS: Normal Saline Flush 10 ML SYR IJ (13:01)
== END ==
PROVIDERS: PCP Physician Assistant; Visit Provider Physician Assistant
DX: N63.11 Unspecified lump in the right breast, upper outer quadrant (principal); Z12.31 Encounter for screening mammogram for malignant neoplasm of breast
CPT/HCPCS: 70553; 70543

== ENCOUNTER → 2023-07-27 04:02 | Outpatient (CLI) | payer MEDICARE, MEDICAID, SELFPAY ==
--- NOTE | 2023-07-27 | DI.US_ITS ---
Exam(s) US BREAST RT LIMITED [facility]MO DIAGNOSTIC BI EXAM: MG MAMMO DIAGNOSTIC BI CLINICAL HISTORY: LUMP RIGHT BREAST UPPER OUTER QUAD N63.11. COMPARISON: MG SCREENING [facility]HEL MAMMO W/CAD DIGI from 09/22/2008 US US BREAST RT LIMITED from 07/27/2023 TECHNIQUE: Craniocaudal and mediolateral oblique Full Field Digital Mammography views of both breast s with Computer Aided Diagnosis followed by Tomosynthesis and right breast ultrasound. Additional sp ot compression views of the right breast FINDINGS: Mammography/Tomosynthesis: Masses/Architectural Distortion: None seen. Microcalcifications: No suspicious pleomorphic-type are seen. Skin Thickening/Nipple Retraction: None. Right breast US: Echotexture: Normal appearance of the glandular tissue. Shadowing: No suspicious foci. Cyst: None. Solid lesions: None seen. Ductal dilation: None. IMPRESSION: 1. No evidence of malignancy is noted. 2. Unless there is more urgent need, follow-up screening mammography is recommended, as per [employer] guidelines. BI-RADS Category 1 - Negative Breast Density - Category B - Scattered areas of fibroglandular density Breast density category C or D implies that the patient has dense breast tissue. Dense breast tissue is very common and is not abnormal but dense breast tissue can make it harder to find cancer on a ma mmogram. Also, dense breast tissue may increase their breast cancer risk. This information about the result of the mammogram report was provided to the patient to raise their awareness. Use this report when you speak with the patient about their risks for breast cancer, which includes their family hist ory. At that time, you may recommend for more screening tests (Ultrasound or MRI) as they might be us eful based on their risk. A negative radiographic report should not delay biopsy if a dominant or clinically suspicious mass is present. Up to ten percent of cancers are not identified on mammography. A negative report may reinforce clinical impression. Adenosis and dense breasts may obscure an underlying neoplasm. False positive reports average 6 to 10%. Patient will receive a letter notifying them of these results.
== END ==
PROVIDERS: PCP Physician Assistant; Visit Provider Physician Assistant
DX: N63.11 Unspecified lump in the right breast, upper outer quadrant (principal); Z12.31 Encounter for screening mammogram for malignant neoplasm of breast
CPT/HCPCS: 76642; 77062; 77066; G0279

== ENCOUNTER 2025-01-25 15:01 | Outpatient (REF) | payer MEDICARE, MEDICAID, SELFPAY ==
[2025-01-25 21:11] LABS: HCT 35.6 % (36.0-46.0); HGB 10.4 g/dL (11.2-15.7); MCH 22.7 pg (27.0-33.0); MCHC 29.2 % (32.0-36.0); MCV 78 fL (80-95); MPV 9.5 fL (8.0-11.0); Platelet Count 276 10^3/uL (130-400); RBC 4.59 10^6/uL (3.93-5.22); RDW 16.7 % (11.7-14.6); RDW-SD 47.0 fL; WBC 4.69 10^3/uL (4.4-10.8)
[2025-01-25 21:33] LABS: Iron 30 ug/dL (50-170); Total Iron Binding Capacity 456 ug/dL (250-450); Transferrin Sat 7 % (15-50)
[2025-01-25 21:46] LABS: ALT 21 U/L (14-59); AST 24 U/L (15-37); Albumin 3.8 g/dL (3.4-5.0); Alkaline Phosphatase 126 U/L (46-116); Anion Gap 7.4 mmol/L (3-11); BUN 15 mg/dL (7-18); Bilirubin, Total 0.4 mg/dL (0.2-1.0); CO2 29.6 mmol/L (21.0-32.0); Calcium 10.0 mg/dL (8.5-10.1); Calculated LDL 84 mg/dL (<100); Chloride 104 mmol/L (98-107); Cholesterol 147 mg/dL (<200); Estimated GFR 62.91 (mL/min/1.73m2); Ferritin 5 ng/mL (8-252); Glucose 98 mg/dL (74-106); HDL Cholesterol 47 mg/dL (>or=50); Potassium 4.0 mmol/L (3.5-5.1); Sodium 141 mmol/L (136-145); Total Protein 7.0 g/dL (6.4-8.2); Triglyceride 84 mg/dL (<150)
== END 2025-01-25 15:02 | disposition home or self-care (01) ==
LOC: NCHCN 15:01
PROVIDERS: PCP Physician Assistant; Visit Provider Physician Assistant
DX: E78.5 Hyperlipidemia, unspecified (principal); D64.9 Anemia, unspecified
CPT/HCPCS: 80053; 80061; 85027; 82728; 83540; 83550